=== PATIENT | female | born 1930 | race Caucasian/White ===

== ENCOUNTER 2016-08-16 10:22 | Inpatient (IN) | payer MEDICARE ==
[~2016-08-16] VITALS: Ht 165.1 cm; Wt 67.8 kg
[~2016-08-16 10:22] MED LIST: ATOR10TA23 PO; HYDR25TA6 PO; KETO5DRO79 LEFT EYE; LISI40TA9 PO; OFLO5DRO46 RIGHT EYE; PRD1OP5 LEFT EYE
[2016-08-16 11:31] LABS: ADD SCAN DIFF NO
[2016-08-16 11:36] LABS: BASOPHILS % 0.1 % (0.0-2.0); HEMATOCRIT 39.5 % (37.0-47.0); HEMOGLOBIN 13.3 g/dl (12.0-16.0); LYMPHOCYTES # 1.1 10^3/ul (0.8-2.9); LYMPHOCYTES % 10.4 % (15.0-51.0); MEAN CORPUSCULAR HEMOGLOBIN 30.8 pg (29.0-33.0); MEAN CORPUSCULAR HGB CONC 33.7 g/dl (32.0-37.0); MEAN CORPUSCULAR VOLUME 91.4 fl (82.0-101.0); NEUTROPHIL # 8.5 10^3/ul (1.6-7.5); NEUTROPHILS % 80.3 % (39.0-77.0); PLATELET COUNT 216 10^3/UL (140-415); RED BLOOD COUNT 4.32 10^6/ul (4.20-5.40); RED CELL DISTRIBUTION WIDTH 13.2 % (11.5-14.5); WHITE BLOOD COUNT 10.5 10^3/ul (4.8-10.8)
[2016-08-16 11:55] LABS: ALBUMIN 3.8 g/dl (3.3-4.9)
[2016-08-16 11:56] LABS: CHLORIDE 104 mmol/L (97-110); SODIUM 144 mmol/L (135-144)
[2016-08-16 11:58] LABS: ALBUMIN/GLOBULIN RATIO 1.18; AMYLASE 48 U/L (11-123); ANION GAP 17 (8-16); BILIRUBIN,INDIRECT 0.5 mg/dl (0-1.1); BILIRUBIN,TOTAL 0.5 mg/dl (0.2-1.3); CARBON DIOXIDE 27 mmol/L (21-31); CREATININE 0.74 mg/dl (0.44-1.00)
[2016-08-16 11:59] LABS: ALANINE AMINOTRANSFERASE 80 IU/L (13-69); ALKALINE PHOSPHATASE 91 IU/L (42-121); ASPARTATE AMINO TRANSFERASE 214 IU/L (15-46); BLOOD UREA NITROGEN 39 mg/dl (7-20); CALCIUM 9.8 mg/dl (8.4-10.2); GLUCOSE 88 mg/dl (70-220)
--- NOTE | 2016-08-16 12:06 | RADRPT ---
PROCEDURE: XR Pelvis CLINICAL INDICATION: Way, syncope, fall TECHNIQUE: An AP radiograph was submitted. COMPARISON: 02/07/2016 FINDINGS: Osseous structures: There is a small corticated ossification at the lateral row of the left acetabul um, unchanged since the previous which possibly is a sequelae of old trauma. The osseous elements o therwise appear intact. Moderate osteoarthritic changes seen at the lumbosacral junction.. Joint spaces: Mild degenerative changes seen about each hip joint with no distension of either joint capsule. the sacroiliac joints appear unremarkable without significant erosions or sclerosis. Soft tissues: appear unremarkable. IMPRESSION: 1. No change to the corticated ossification seen lateral to the roof of the left acetabulum which m ay be a sequelae of old trauma. No acute fractures evident. 2. Moderate osteoarthritic change seen about the lumbosacral junction. 3. Osteoporosis. Physician Bradley Date Time Electronically viewed and signed by Physician Bradley on 08/16/2016 12:06 /
--- NOTE | 2016-08-16 12:08 | RADRPT ---
PROCEDURE: XR Left Hip CLINICAL INDICATION: Fall TECHNIQUE: AP and frog-leg views were submitted. COMPARISON: Previous pelvis done 80 04/10/2016 FINDINGS: Osseous structures: A corticated ossification is again seen at the lateral roof of the left acetabul um possibly a sequelae of old trauma. The osseous elements otherwise appear rarefied but intact. Joint spaces: Mild degenerative changes seen about the left hip with no distension of the joint caps ule. The visualized left sacroiliac joint appears unremarkable. Soft tissues: appear unremarkable. IMPRESSION: 1. Corticated ossification seen at the lateral left acetabular roof, possibly a sequelae of old tra amanda and unchanged since the previous pelvis study of 02/07/2016. No acute fracture is identified. 2. Mild degenerative change seen about the left hip. Physician Bradley Date Time Electronically viewed and signed by Juhi Pruitt Physician on 08/16/2016 12:08 /
[2016-08-16 12:10] LABS: TROPONIN-I < 0.010 ng/ml (0.00-0.12)
--- NOTE | 2016-08-16 12:10 | RADRPT ---
PROCEDURE: CT Head without contrast. CLINICAL INDICATION: Possible sepsis. Headaches TECHNIQUE: The study was performed utilizing a GE 64-slice multidetector CT scanner. Direct spiral axial CT images of the brain were obtained from the vertex to the skull base without contrast. Arcelia nal and sagittal reformatted images are provided. The CTDI vol is 36.21 mGy and the DLP is 554.95 mG y-cm. The images were reviewed on a PACS workstation. COMPARISON: No prior studies are available for comparison. FINDINGS: Mild to moderate diffuse atrophy is seen with a compensatory ventricular enlargement. Mild to moder ate white matter disease in the periventricular and deep white matter is seen. The cantu-white matte r differentiation is maintained. No intra or extra-axial fluid collection or mass effect or shift i n the midline structures is seen. The visualized paranasal sinuses, mastoid air cells, orbits, and calvarium are unremarkable. Vascular calcifications are seen. IMPRESSION: 1. No acute intracranial pathology. 2. Mild to moderate diffuse volume loss and mild to moderate chronic microvascular ischemic changes . RPTAT: HPNM Physician Hermelinda Date Time Electronically viewed and signed by Physician Hermelinda on 08/16/2016 12:10 /
[2016-08-16] MEDS ORDERED: ONDANSETRON 4 MG INJ IV STA (13:11)
[2016-08-16] MEDS ORDERED: SOD CHLORIDE 0.9% 1,000 ML IV STA ×2 (13:11→14:12)
[2016-08-16] MEDS ORDERED: morphine 2 MG INJ IV STA (13:11)
[2016-08-16 13:27] LABS: ADD UMIC YES; URINE BILIRUBIN (Dip) 1+ (NEGATIVE); URINE BLOOD (Dip) 2+ (NEGATIVE); URINE COLOR YELLOW (YELLOW); URINE GLUCOSE (Dip) NEGATIVE (NEGATIVE); URINE KETONES (Dip) 15 (NEGATIVE); URINE LEUKOCYTE ESTERASE (Dip) NEGATIVE (NEGATIVE); URINE NITRITE (Dip) NEGATIVE (NEGATIVE); URINE UROBILINOGEN (Dip) 1.0 E.U./dL (0.1-1.0)
[2016-08-16 13:38] LABS: URINE TOTAL PROTEIN (Dip) TRACE (NEGATIVE)
[2016-08-16 13:39] LABS: ICTOTEST NEGATIVE (NEGATIVE)
[2016-08-16 13:40] LABS: MUCUS,URINE FEW
--- NOTE | 2016-08-16 14:19 | ERA ---
ER Documentation Chief Complaint Date/Time DATE: 08/16/16 TIME: 14:13 Chief Complaint BROUGHT IN VIA EMS DUE TO FALL AT HOME AND WAS ON FLOOR FOR 4 HOURS LL PAIN HPI This is an 86-year-old female that presents to the emergency department brought in by EMS after she was found lying on the floor in the hallway of her apartment complex. The patient lives alone but does have difficulty attending to her activities of daily living. Her son currently lives in [facility] and had phoned her today with no response. Therefore he was concerned and phoned her neighbors, who helps to care for the patient, and indicated that she would had been lying in the hallway where the patient states she believes she fell but is not sure if she lost consciousness. There was concern for possible syncope episode given that the patient did not recall the events of how she ended up on the floor but believes she was there for roughly 4 hours. She is complaining of left hip pain. She states it is difficult for her to ambulate as she normally ambulates with a cane and was unable to get up after she fell. The patient denies any chest pain or pressure. She denies a headache or changes in vision. She denies any shortness of breath at rest or exertion ROS All systems reviewed and are negative except as per history of present illness. Medications Home Meds Reported Medications Lisinopril* (Lisinopril*) 40 Mg Tablet, 40 MG PO DAILY 12/07/11 Discontinued Reported Medications Ketorolac Tromethamine Oph (Ketorolac Tromethamine Oph) 0.4%-5 Ml Opht Drops, 1 DROP LEFT EYE DAILY, EA 02/08/16 Prednisolone Acetate* (Pred Forte*) 5 Ml Susp, 1 DROP LEFT EYE DAILY, EA 02/08/16 Ofloxacin* (Ocuflox*) 0.3%-5 Ml Ophth Drops, 1 DROP RIGHT EYE QID, BOTTLE 02/08/16 Atorvastatin (Lipitor) 10 Mg Tablet, 10 MG PO DAILY 12/07/11 Hydrochlorothiazide (Hydrochlorothiazide) 25 Mg Tablet, 20 MG PO DAILY 12/07/11 Allergies Allergies: Coded Allergies: No Known Allergy (Unverified , 08/16/16) PMhx/Soc Anesthesia Reaction: No Hx Neurological Disorder: No Hx Respiratory Disorders: No Hx Cardiac Disorders: Yes (HTN) Hx Psychiatric Problems: No Hx Alcohol Use: No Hx Substance Use: No Hx Tobacco Use: No Smoking Status: Never smoker Physical Exam Vitals Vital Signs Date Time Temp Pulse Resp B/P Pulse Ox O2 Delivery O2 Flow Rate FiO2 08/16/16 12:35 90 22 107/59 100 Room Air 08/16/16 10:53 98.2 70 18 132/82 98 Physical Exam Constitutional:Well-developed. Well-nourished. HEENT:Normocephalic. Atraumatic.Pupils were equal round reactive to light. Very dry mucous membranes.No tonsillar exudates. No nasal septal hematoma. No hemotympanum. Neck: No nuchal rigidity. No lymphadenopathy. No posterior cervical spine tenderness or step-offs. Respiratory: Not using accessory muscles of respiration.Lungs were clear to auscultation bilaterally. No rhonchi. No rales. No wheezing. Cardiovascular: Regular rate regular rhythm.No murmurs. No rubs were appreciated.S1, S2 normal. Distal pulses are palpable 2+ bilaterally. GI: Abdomen was soft. Nontender. Non Distended. No pulsatile abdominal masses or bruits. No rebound. No guarding. Bowel sounds were present and normal. Muscle skeletal: Full range of motion of both the upper extremities bilaterally. Muscular strength 3 out of 5 in the left lower extremity and 4 out of 5 in the right lower extremity. Lower extremities are of equal length and symmetrical with no internal/external rotation Skin: No petechia, no purpura. No lesions on the palms or the soles of the feet. No maculopapular rash. NEURO: Patient was alert, awake, orientated to person place but not to time. She answered all questions appropriately. Patient was unable to ambulate without assistance. No facial droop. No slurred speech. Result Diagram: 08/16/16 1120 08/16/16 1120 Results 24 hrs Laboratory Tests Test 08/16/16 11:20 08/16/16 13:10 Alanine Aminotransferase (ALT/SGPT) 80IU/L Albumin 3.8g/dl Albumin/Globulin Ratio 1.18 Alkaline Phosphatase 91IU/L Amylase Level 48U/L Anion Gap 17 Aspartate Amino Transf (AST/SGOT) 214IU/L Basophils # 0.010^3/ul Basophils % 0.1% Blood Urea Nitrogen 39mg/dl Calcium Level 9.8mg/dl Carbon Dioxide Level 27mmol/L Chloride Level 104mmol/L Creatinine 0.74mg/dl Direct Bilirubin 0.00mg/dl Eosinophils # 0.010^3/ul Eosinophils % 0.0% Globulin 3.20g/dl Glucose Level 88mg/dl Hematocrit 39.5% Hemoglobin 13.3g/dl Indirect Bilirubin 0.5mg/dl Lactic Acid Level 1.3mmol/L Lipase 76U/L Lymphocytes # 1.110^3/ul Lymphocytes % 10.4% Mean Corpuscular Hemoglobin 30.8pg Mean Corpuscular Hemoglobin Concent 33.7g/dl Mean Corpuscular Volume 91.4fl Mean Platelet Volume 10.0fl Monocytes # 1.010^3/ul Monocytes % 9.0% Neutrophils # 8.510^3/ul Neutrophils % 80.3% Nucleated Red Blood Cells # 0.010^3/ul Nucleated Red Blood Cells % 0.0/100WBC Platelet Count 97120^3/UL Potassium Level 4.0mmol/L Red Blood Count 4.3210^6/ul Red Cell Distribution Width 13.2% Sodium Level 144mmol/L Total Bilirubin 0.5mg/dl Total Protein 7.0g/dl Troponin I < 0.010ng/ml White Blood Count 10.510^3/ul Urine Bilirubin 1+ Urine Clarity CLEAR Urine Color YELLOW Urine Glucose NEGATIVE% Urine Hemoglobin 2+ Urine Hyaline Casts RARE Urine Ictotest NEGATIVE Urine Ketones 15 Urine Leukocyte Esterase NEGATIVE Urine Microscopic RBC 2-5/HPF Urine Microscopic WBC 2-5/HPF Urine Mucus FEW Urine Nitrite NEGATIVE Urine Specific [place] >=1.030 Urine Total Protein TRACE Urine Urobilinogen 1.0 E.U./dL Urine pH 6.0 Current Medications Medications (Trade) Dose Ordered Sig/Noé Route PRN Reason Start Time Stop Time Status Last Admin Dose Admin Sodium Chloride (NS) 1,000 ml @ 1,000 mls/hr Q1H STAT IV 08/16/16 13:11 08/16/16 14:10 DC 08/16/16 13:44 Morphine Sulfate (morphine) 2 mg ONCE STAT IV 08/16/16 13:11 08/16/16 13:12 DC Ondansetron HCl (Zofran Inj) 4 mg ONCE STAT IV 08/16/16 13:11 08/16/16 13:12 DC Procedures/MDM The patient presented to the emergency department with a possible syncope episode. The differential diagnosis of syncope is vast but my workup considered common benign disorders to life-threatening processes. Therefore my differential diagnosis included but was not limited to reflex-mediated syncope such as vasovagal or carotid sinus syncope from coughing, sneezing, micturition , or GI stimulation (eg, defecation). Other etiologies in my workup included orthostatic hypotension which could cause syncope from an abrupt drop in venous return to heart from volume depletion. An EKG and cardiac enzymes were obtained to rule out cardiac arrhythmias or ischemia. Cardiopulmonary disease such as valvular disease, hypertrophic cardiomyopathy, pericardial tamponade, or pulmonary embolism were considered as a factor causing the patients syncope episode. The patient had no difference in blood pressure in both arms that could suggest aortic dissection or subclavian steal syndrome. Rectal exam was negative for fecal occult blood that could suggest GI bleeding. Ancillary laboratory work was obtained to evaluate for metabolic or electrolyte abnormalities. The patient had no witnessed brief tonic movements that could suggest postictal confusion. The patient was placed on a director of physical security, continuous pulse oximetry and IV access established by nursing staff. The patient appeared clinically dehydrated and his CPK is currently pending in order to rule out the possibility of rhabdomyolysis. The patient received a total of 2 L bolus of 0.9 normal saline. She was complaining of pain over her left hip and there is no evidence of an acute fracture seen on the radiographic imaging of the pelvis and 2 views of the left hip that was reviewed by myself as well as the radiologist. Therefore she received intravenous morphine and Zofran for analgesia control 12 Lead EKG tracing ordered and reviewed by myself showed: Normal sinus rhythm of 63 bpm and no arrhythmia. NV interval normal. QRS duration normal. No ST segment elevation No ST segment depression. No changes consistent with acute ischemia. The patient will be admitted for observation to undergo IV hydration to the hospitalist Dr. Moreno. Departure Diagnosis: Primary Impression: Fall Additional Impressions: Syncope Dehydration, mild RAFAEL GIBBONSTHIA Aug 16, 2016 14:19
[2016-08-16] MEDS ORDERED: ONDANSETRON 4 MG INJ IV PRN ×2 (14:30→18:00)
[2016-08-16] MEDS ORDERED: ACETAMINOPHEN 325 MG TAB PO PRN ×2 (14:30→18:00)
[2016-08-16 14:40] LABS: CK-MB 46.5 ng/ml (0.0-2.4)
--- NOTE | 2016-08-16 21:34 | RADRPT ---
PROCEDURE: Right upper quadrant ultrasound. CLINICAL INDICATION: Transaminitis. TECHNIQUE: Multiple real-time longitudinal and transverse images of the right upper quadrant of th e abdomen were acquired utilizing a curved array transducer. Images were reviewed on a high-resoluti on PACS workstation. COMPARISON: None. FINDINGS: The pancreas is obscured by bowel gas. The liver is normal in echogenicity. The liver measures 11.7 cm in length. No hepatic lesion or in trahepatic biliary ductal dilatation is seen. There is normal portal venous and hepatic vein flow. There are multiple stones in the gallbladder neck, measuring up to 1.3 cm. The gallbladder wall is n ot thickened. There is no pericholecystic fluid. The common bile duct measures millimeters in diame ter, not dilated. The right kidney measures 10.7 cm in length. Renal echogenicity is normal. There is no hydronephro sis, urinary calculus, or renal mass. The visualized portions of the aorta and IVC are unremarkable. IMPRESSION: 1. Cholelithiasis without evidence of cholecystitis. 2. No biliary dilatation. 3. Normal sonographic appearance of the liver. 4. Nonvisualization of the pancreas. RPTAT: HTAR .Gurinder Fountain MD, MD Date Time Electronically viewed and signed by .Gurinder Fountain MD, on 08/16/2016 21:34 .R/
[2016-08-16 22:09] VITALS: PULSE 86
[2016-08-16 22:10] VITALS: BP 136/91; RESP 16
[2016-08-16 22:44] VITALS: Ht 165.1 cm; Wt 67.8 kg
[2016-08-16] MEDS: SOD CHLORIDE 0.9% 1,000 ML IV SCH (23:01)
[2016-08-16] MEDS: DOCUSATE SODIUM 100 MG CAP PO SCH (23:01)
[2016-08-16] MEDS: FAMOTIDINE 20 MG TAB PO SCH (23:01)
[2016-08-17] VITALS (12 sets, daily range): BP systolic 98–129; BP diastolic 47–78; PULSE 51–71; RESP 14–18
[2016-08-17 00:17] LABS: CK-MB 27.9 ng/ml (0.0-2.4)
[2016-08-17 00:20] LABS: TROPONIN-I 0.024 ng/ml (0.00-0.12)
--- NOTE | 2016-08-17 03:08 | HP ---
DATE OF ADMISSION: 08/16/2016 PRESENTING COMPLAINT: The patient was found on the floor at home. HISTORY OF PRESENTING COMPLAINT: Ms. Rima Broussard is an 85-year-old female who was brought in by ambulance after she was found on the floor by EMS in her own home. It is unknown how long she was on the floor but the patient reports that she was on the floor for at least 4 hours prior to being b rought in. It is, however, difficult to get a history from the patient because her speech is quite confused. For instance, the patient reports her son should be arriving from [place] today and will b e picking her up from the hospital; however, upon speaking with the son, there were no plans for him to arrive from [place], and there were no plans for him to machine operator picker the patient from the hospital and as such, the consensus surrounding her being on the floor is unclear, but apparently, she has neigh bors who check on her from [id number] and they had checked on her and found her on the floor and c alled the ambulance to pick her up. The patient tells us that she fell from her bed, but she was no t close to her bed, per report, at the time she was found. At this time, she denies any complaints. She is actually requesting to be discharged back to her own home. She is mildly shaky, but she st ates that happens when she is cold and in an unfamiliar environment. She denies shortness of breath , denies nausea, denies vomiting. When we spoke with her son on the phone, he reported a bout of fo od poisoning about a week ago; however, the patient does not recall this. REVIEW OF SYSTEMS: All other systems in a 12-point review of systems ____ review and any pertinent findings are located above. PAST MEDICAL HISTORY: Positive only for high blood pressure. PAST SURGICAL HISTORY: The patient denies. ALLERGIES: SHE HAS NO KNOWN DRUG ALLERGIES. SOCIAL HISTORY: She lives alone. Never smoked. Denies alcohol or illicit drug use. FAMILY HISTORY: Noncontributory. HOME MEDICATION: Lisinopril 40 mg p.o. daily only. PHYSICAL EXAMINATION: VITAL SIGNS: Temperature 98.2, pulse 90, respirations 22, blood pressure 107/59, saturations are 10 0%. On room air. GENERAL: Elderly female, frail. Alert and oriented to time, place, and person; however, again, spe ech is confused. HEENT: Her head was normocephalic without evidence of ____. Mucous membranes were quite dry. CHEST: ____ reduced breath sounds bilaterally. CARDIOVASCULAR: Heart sounds are S1 and 2 without added sounds or murmurs. ABDOMEN: Soft, nontend er, nondistended and she had normoactive bowel sounds. EXTREMITIES: There was a visible tremor that was worse on the right side, but she had no lower extr emity edema. There was bruising on her right hip, but an x-ray did not show any acute fractures. SKIN: Other than that, her skin had no other significant finding. PSYCH: She was quite anxious to return home. Denies suicidal ideation r homicidal ideation. NEUROLOGIC: She had no gross focal deficits, but her mental status did show confusion and ____ kavya ntia, but there were no other gross findings. LABORATORY VALUES: She had a very mild leukocytosis, but her hemoglobin, hematocrit, and platelet c ount were all normal. Her BUN was elevated, consistent with dehydration, but the rest of the basic metabolic profile was unremarkable. Liver enzymes were mildly elevated and her albumin level was no rmal. Her AST was more than double her ALT, but lipase level was normal, lactic acid was normal, an d her first troponin was negative. The ____ levels were also high normal. Urinalysis had 2+ hemogl obin, rare hyaline casts, trace urobilinogen, ____ white blood cells. Her leukocyte esterase was ne gative. IMAGING STUDIES: She had an EKG that showed normal sinus rhythm with a rate of 63 and a chest x-ray that did not show any acute cardiopulmonary abnormality. ASSESSMET: An 86-year-old female who resides alone who was found on the floor alert, unknown period of time wit h the followin. Status post fall, for which the ____ unclear. 2. Dehydration. 3. Dementia. 4. Rule out cerebrovascular accident. ____. PLAN: ____ perform a stroke workup. In view of her confusion, this could be secondary to dehydrati on, or if this is a chronic condition, then the patient might not be safe to ____. She will be asse ssed for ____. We will gently hydrate her, ____ 2D echo, rule out acute coronary syndrome, and furt her interventions will depend on our findings and ____. She will need to be evaluated by the older adult social work specialist and ____ physical therapist. Again, she will be also receiving an MRI of the brain. Overal l evaluation time ____ 45 minutes. For prophylaxis, she will be placed on SCDs as well as famotidin e therapy. For clarification and further information, please review the patient's chart and my orde rs. Dictated By: ZULEYMA CARREON MD BA/NTS Conf#: [id number] DID#: [id number]
[2016-08-17] MEDS: SOD CHLORIDE 0.9% 1,000 ML IV SCH ×3 (03:21→19:00)
[2016-08-17 06:06] LABS: ADD SCAN DIFF NO
[2016-08-17 06:10] LABS: BASOPHILS % 0.1 % (0.0-2.0); EOSINOPHILS % 0.2 % (0.0-7.0); HEMATOCRIT 32.1 % (37.0-47.0); HEMOGLOBIN 10.5 g/dl (12.0-16.0); LYMPHOCYTES # 1.8 10^3/ul (0.8-2.9); LYMPHOCYTES % 20.2 % (15.0-51.0); MEAN CORPUSCULAR HEMOGLOBIN 30.5 pg (29.0-33.0); MEAN CORPUSCULAR HGB CONC 32.7 g/dl (32.0-37.0); MEAN CORPUSCULAR VOLUME 93.3 fl (82.0-101.0); MEAN PLATELET VOLUME 10.4 fl (7.4-10.4); MONOCYTE # 0.9 10^3/ul (0.3-0.9); MONOCYTES % 10.1 % (0.0-11.0); NEUTROPHIL # 6.2 10^3/ul (1.6-7.5); NEUTROPHILS % 69.2 % (39.0-77.0); PLATELET COUNT 168 10^3/UL (140-415); RED BLOOD COUNT 3.44 10^6/ul (4.20-5.40); RED CELL DISTRIBUTION WIDTH 13.4 % (11.5-14.5)
[2016-08-17 06:18] LABS: POTASSIUM 3.5 mmol/L (3.5-5.1)
[2016-08-17 06:21] LABS: CALCIUM 8.5 mg/dl (8.4-10.2); CREATININE 0.71 mg/dl (0.44-1.00)
[2016-08-17 06:22] LABS: MAGNESIUM 2.2 mg/dl (1.7-2.5)
[2016-08-17 06:52] LABS: THYROID STIMULATING HORMONE 1.82 MIU/L (0.465-4.680)
[2016-08-17] MEDS ORDERED: DONEPEZIL 5 MG TAB PO SCH (09:00)
[2016-08-17] MEDS: DOCUSATE SODIUM 100 MG CAP PO SCH ×2 (09:19→20:00)
[2016-08-17] MEDS: FAMOTIDINE 20 MG TAB PO SCH (09:19)
[2016-08-17 09:31] LABS: CREATINE KINASE 2091 IU/L (23-200)
[2016-08-17 09:37] LABS: TROPONIN-I < 0.012 ng/ml (0.00-0.12)
[2016-08-17 10:44] LABS: ALBUMIN 2.4 g/dl (3.3-4.9)
[2016-08-17 10:47] LABS: BILIRUBIN,INDIRECT 0.2 mg/dl (0-1.1); BILIRUBIN,TOTAL 0.2 mg/dl (0.2-1.3); TOTAL PROTEIN 4.9 g/dl (6.1-8.1)
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
[2016-08-17] MEDS: LACTOBACILLUS CHEW TAB PO SCH ×2 (11:42→20:00)
[2016-08-17] MEDS: DONEPEZIL 10 MG TAB PO SCH (11:42)
[2016-08-17] MEDS ORDERED: POTASSIUM PHOSPHATE 15 MEQ in SOD CHLORIDE 0.9% 250 ML IVPB ONE (13:00)
[2016-08-17] MEDS: PIPER-TAZO 3.375 GM IV (PMX) 100 ML IVPB SCH ×2 (14:44→20:01)
[2016-08-17] MEDS: ARTIFICIAL TEARS 15 ML OPH RIGHT EYE SCH ×2 (16:52→20:00)
--- NOTE | 2016-08-17 17:59 | RADRPT ---
PROCEDURE: MR Brain without contrast. CLINICAL INDICATION: CVA TECHNIQUE: An MRI of the brain was performed on a 1.5 kadie scanner utilizing the following sequen latosha: Sagittal T1 weighted, axial T2 weighted, axial FLAIR, coronal GRE, and axial diffusion weighted with ADC mapping. COMPARISON: CT brain 08/16/2016 FINDINGS: No evidence of restricted diffusion to suggest acute or early subacute ischemic infarction. There i s no evidence of intracranial hemorrhage, mass effect, or midline shift. No extra-axial fluid collec tions are seen. No hypointense signal abnormalities are seen on the GRE images to suggest the presence of blood degr adation products. A patchy and confluent periventricular and subcortical white matter T2 signal hyperintensity foci mo st compatible with sequelae of chronic microvascular ischemic injury. Prominence of the ventricles and subarachnoid spaces most compatible with moderate global central cerebral volume loss. Incident al note is made of partially empty sella. Left lens surgery. The posterior fossa contents, brainstem, seventh - eighth cranial nerve complexes, pituitary axis, o rbits, paranasal sinuses, and mastoid air cells are unremarkable. Normal flow voids are visible in the proximal intracranial arteries and dural sinuses, indicating pa tency. IMPRESSION: 1. No early subacute ischemic infarction or intracranial hemorrhage. 2. Mild chronic microvascular ischemic changes in the deep white matter. 3. Moderate central cerebral volume loss. RPTAT:AAJJ Physician Rosibel Date Time Electronically viewed and signed by Physician Rosibel on 08/17/2016 17:59 LIOR/
[2016-08-18] VITALS (13 sets, daily range): BP systolic 107–149; BP diastolic 51–79; PULSE 54–79; RESP 16–18
[2016-08-18] MEDS: SOD CHLORIDE 0.9% 1,000 ML IV SCH ×2 (05:03→21:14)
[2016-08-18] MEDS: PIPER-TAZO 3.375 GM IV (PMX) 100 ML IVPB SCH ×3 (05:03→22:49)
[2016-08-18 06:07] LABS: ADD SCAN DIFF NO
[2016-08-18 06:15] LABS: EOSINOPHILS # 0.1 10^3/ul (0.0-0.5); EOSINOPHILS % 0.6 % (0.0-7.0); HEMATOCRIT 30.1 % (37.0-47.0); LYMPHOCYTES # 1.7 10^3/ul (0.8-2.9); LYMPHOCYTES % 21.6 % (15.0-51.0); MEAN CORPUSCULAR HEMOGLOBIN 30.9 pg (29.0-33.0); MEAN CORPUSCULAR HGB CONC 33.2 g/dl (32.0-37.0); MEAN CORPUSCULAR VOLUME 92.9 fl (82.0-101.0); MEAN PLATELET VOLUME 10.4 fl (7.4-10.4); MONOCYTES % 12.9 % (0.0-11.0); NEUTROPHIL # 5.1 10^3/ul (1.6-7.5); NEUTROPHILS % 64.5 % (39.0-77.0); PLATELET COUNT 171 10^3/UL (140-415); RED BLOOD COUNT 3.24 10^6/ul (4.20-5.40); RED CELL DISTRIBUTION WIDTH 13.2 % (11.5-14.5); WHITE BLOOD COUNT 7.8 10^3/ul (4.8-10.8)
[2016-08-18 06:39] LABS: CREATININE 0.66 mg/dl (0.44-1.00)
[2016-08-18 06:40] LABS: CALCIUM 7.9 mg/dl (8.4-10.2)
[2016-08-18 06:41] LABS: PHOSPHORUS 1.7 mg/dl (2.5-4.9)
[2016-08-18] MEDS: DONEPEZIL 10 MG TAB PO SCH (09:05)
[2016-08-18] MEDS: ARTIFICIAL TEARS 15 ML OPH RIGHT EYE SCH ×4 (09:06→21:15)
[2016-08-18] MEDS: DOCUSATE SODIUM 100 MG CAP PO SCH ×2 (09:06→21:14)
[2016-08-18] MEDS: FAMOTIDINE 20 MG TAB PO SCH (09:06)
[2016-08-18] MEDS: ENOXAPARIN 30 MG/0.3 ML SYG SC SCH (09:06)
[2016-08-18] MEDS: LACTOBACILLUS CHEW TAB PO SCH ×2 (09:06→21:14)
--- NOTE | 2016-08-18 13:05 | PN ---
Date/Time of Note Date/Time of Note DATE: 08/18/16 TIME: 13:01 Assessment/Plan VTE Prophylaxis VTE Prophylaxis Intervention: SCD's Lines/Catheters IV Catheter Type (from Nrs): Peripheral IV Urinary Cath still in place: Yes Reason Cath still needed: urinary retention Assessment/Plan Chief Complaint/Hosp Course Assessment/Plan: 86-year-old female who resides alone who was found on the floor alert, unknown period of time with the followin. Status post fall: Syncope vs CVA vs Mech fall. Patient seems unsafe to live alone at this time. Patient was unable to stand up on her own and lay there alert for unknown amount of time. - continue IVF, awaiting PT, pain control 2. Severe Rhabdomyolysis - Elevated CKMB likely 2/2 #1 - Continue gentle hydration / monitor renal fxn / trend creatinine kinase levels 3. Dementia - monitor 4. Acute encephalopathy Rule out Acute cerebrovascular accident. 5. Bacteremia (Gr - and + organisms), ? source - Empiric abx / 2D echo for bacteremia with unclear source 6. Old L hip fracture - monitor, PT eval and treatment 7. Recent bout of "Food poisoning" per family 8. Transaminitis: improving PLAN: - SNF needed PROPHYLAXIS: Lovenox / Pepcid Problems: Subjective 24 Hr Interval Summary Free Text/Dictation Pt feels a bit better, still weak. Exam/Review of Systems Vital Signs Vitals Vital Signs Date Time Temp Pulse Resp B/P Pulse Ox O2 Delivery O2 Flow Rate FiO2 08/18/16 12:21 79 08/18/16 12:03 98.9 18 126/76 96 08/16/16 21:09 Room Air Intake and Output 08/17/16 08/17/16 08/18/16 15:00 23:00 07:00 Intake Total 1933 ml 1160 ml Output Total 550 ml 400 ml Balance 1383 ml 760 ml Exam GEN: a bit more alert, NAD, eating food HEENT: R sided ptosis (chronic) with mild crusting. Her head was normocephalic without evidence of trauma Mucous membranes were less dry. CHEST: slightly reduced breath sounds bilaterally. CARDIOVASCULAR: Heart sounds are S1 and 2 without added sounds or murmurs. ABDOMEN: Soft, nontender, nondistended and she had normoactive bowel sounds. EXTREMITIES: no lower extremity edema B/L. Bruising on her right hip seen SKIN: Other than that, her skin had no other significant finding. NEUROLOGIC: She had no gross focal deficits, but her mental status did show confusion and dementia, Lethargic and very frail. Results Result Diagram: 08/18/16 0530 08/18/16 0530 Results 24 hrs Laboratory Tests Test 08/18/16 05:30 Anion Gap 11 Basophils # 0.0 Basophils % 0.0 Blood Urea Nitrogen 18 # Calcium Level 7.9 L Carbon Dioxide Level 23 Chloride Level 112 H Creatinine 0.66 Eosinophils # 0.1 Eosinophils % 0.6 Glucose Level 92 Hematocrit 30.1 L Hemoglobin 10.0 L Lymphocytes # 1.7 Lymphocytes % 21.6 Magnesium Level 2.0 Mean Corpuscular Hemoglobin 30.9 Mean Corpuscular Hemoglobin Concent 33.2 Mean Corpuscular Volume 92.9 Mean Platelet Volume 10.4 Monocytes # 1.0 H Monocytes % 12.9 H Neutrophils # 5.1 Neutrophils % 64.5 Nucleated Red Blood Cells # 0.0 Nucleated Red Blood Cells % 0.0 Phosphorus Level 1.7 L Platelet Count 171 Potassium Level 3.0 L Red Blood Count 3.24 L Red Cell Distribution Width 13.2 Sodium Level 143 White Blood Count 7.8 Medications Medications Current Medications Sodium Chloride (NS) 1,000 ml @ 80 mls/hr [id number] IV Last administered on 08/18 05:03; Admin Dose 80 MLS/HR; Start 08/16/16 at 18:00 Famotidine (Pepcid) 20 mg DAILY PO Last administered on 08/18/16 09:06; Admin Dose 20 MG; Start 08/16/16 at 21:00 Ondansetron HCl (Zofran Inj) 4 mg Q6H PRN IV NAUSEA AND/OR VOMITING; Start at 18:00 Docusate Sodium (Colace) 100 mg BID PO Last administered on 08/18/16 09:06; Admin Dose 100 MG; Start 08/16/16 at 21:00 Acetaminophen 650 mg 650 mg Q6H PRN PO PAIN AND OR ELEVATED TEMP; Start at 18:00 Piperacillin Sod/ Tazobactam Sod (Zosyn 3.375gm/ 100 ml (Pmx)) 100 ml @ 200 mls /hr Q8 IVPB Last administered on 08/18/16 05:03; Admin Dose 200 MLS/HR; Start 08/17/16 at 14:00 Lactobacillus Acidoph/Bulgaricus (Floranex) 1 tab BID PO Last administered on 09:06; Admin Dose 1 TAB; Start 08/17/16 at 11:00 Donepezil HCl (Aricept) 5 mg DAILY PO Last administered on 08/18/16 09:05; Admin Dose 5 MG; Start 08/17/16 at 11:30 Eye Lubricant (Artificial Tears Oph) 2 drop QID RIGHT EYE Last administered on 08/18/16 09:06; Admin Dose 2 DROP; Start 08/17/16 at 16:00 Enoxaparin Sodium 30 mg 30 mg DAILY SC Last administered on 08/18/16 09:06; Admin Dose 30 MG; Start 08/18/16 at 09:00 Potassium Phosphate/Sodium Chloride (K Phos (Mm)/NS) 260 ml @ 65 mls/hr ONCE ONCE IVPB ; Start 08/18/16 at 14:30; Stop 08/18/16 at 18:29 BILLIE CLAY Aug 18, 2016 13:05
[2016-08-18] MEDS ORDERED: POTASSIUM PHOSPHATE 30 MM in SOD CHLORIDE 0.9% 250 ML IVPB ONE (14:30)
[2016-08-19] VITALS (12 sets, daily range): BP systolic 96–148; BP diastolic 54–67; PULSE 58–73; RESP 18–20
[2016-08-19] MEDS: PIPER-TAZO 3.375 GM IV (PMX) 100 ML IVPB SCH ×3 (05:51→22:02)
[2016-08-19 06:22] LABS: ADD SCAN DIFF NO
[2016-08-19 06:53] LABS: BASOPHILS % 0.1 % (0.0-2.0); EOSINOPHILS # 0.1 10^3/ul (0.0-0.5); HEMATOCRIT 30.8 % (37.0-47.0); HEMOGLOBIN 10.3 g/dl (12.0-16.0); LYMPHOCYTES % 25.8 % (15.0-51.0); MEAN CORPUSCULAR HEMOGLOBIN 30.8 pg (29.0-33.0); MEAN CORPUSCULAR HGB CONC 33.4 g/dl (32.0-37.0); MEAN CORPUSCULAR VOLUME 92.2 fl (82.0-101.0); MEAN PLATELET VOLUME 10.2 fl (7.4-10.4); MONOCYTE # 0.8 10^3/ul (0.3-0.9); MONOCYTES % 10.2 % (0.0-11.0); NEUTROPHIL # 4.8 10^3/ul (1.6-7.5); NEUTROPHILS % 62.4 % (39.0-77.0); PLATELET COUNT 165 10^3/UL (140-415); RED BLOOD COUNT 3.34 10^6/ul (4.20-5.40); RED CELL DISTRIBUTION WIDTH 13.4 % (11.5-14.5); WHITE BLOOD COUNT 7.7 10^3/ul (4.8-10.8)
[2016-08-19 07:05] LABS: CREATININE 0.66 mg/dl (0.44-1.00)
[2016-08-19 07:06] LABS: CALCIUM 7.9 mg/dl (8.4-10.2)
[2016-08-19 07:07] LABS: PHOSPHORUS 2.5 mg/dl (2.5-4.9)
[2016-08-19] MEDS: SOD CHLORIDE 0.9% 1,000 ML IV SCH (08:30)
[2016-08-19] MEDS: FAMOTIDINE 20 MG TAB PO SCH (08:41)
[2016-08-19] MEDS: DONEPEZIL 10 MG TAB PO SCH (08:41)
[2016-08-19] MEDS: LACTOBACILLUS CHEW TAB PO SCH ×2 (08:41→20:59)
[2016-08-19] MEDS: DOCUSATE SODIUM 100 MG CAP PO SCH ×2 (08:41→20:59)
[2016-08-19] MEDS: ARTIFICIAL TEARS 15 ML OPH RIGHT EYE SCH ×4 (08:45→20:59)
[2016-08-19] MEDS: ENOXAPARIN 30 MG/0.3 ML SYG SC SCH (08:48)
--- NOTE | 2016-08-19 10:27 | PN ---
Date/Time of Note Date/Time of Note DATE: 08/19/16 TIME: 10:26 Assessment/Plan VTE Prophylaxis VTE Prophylaxis Intervention: SCD's Lines/Catheters IV Catheter Type (from Nrs): Peripheral IV Urinary Cath still in place: Yes Reason Cath still needed: urinary retention Assessment/Plan Chief Complaint/Hosp Course Assessment/Plan: 86-year-old female who resides alone who was found on the floor alert, unknown period of time with the followin. Status post fall: Syncope vs CVA vs Mech fall. Patient seems unsafe to live alone at this time. Patient was unable to stand up on her own and lay there alert for unknown amount of time. - continue IVF, PT rec's, pain control 2. Severe Rhabdomyolysis - Elevated CKMB likely / #1 - improving - Continue gentle hydration / monitor renal fxn / trend creatinine kinase levels 3. Dementia - monitor 4. Acute encephalopathy Rule out Acute cerebrovascular accident. 5. Bacteremia (Gr - and + organisms), ? source - Empiric abx / 2D echo for bacteremia with unclear source 6. Old L hip fracture - monitor, PT eval and treatment 7. Recent bout of "Food poisoning" per family 8. Transaminitis: improving PLAN: - SNF needed, pending PROPHYLAXIS: Lovenox / Pepcid Problems: Subjective 24 Hr Interval Summary Free Text/Dictation No acute events overnight Exam/Review of Systems Vital Signs Vitals Vital Signs Date Time Temp Pulse Resp B/P Pulse Ox O2 Delivery O2 Flow Rate FiO2 08/19/16 08:25 58 08/19/16 07:43 98.3 18 129/60 92 08/16/16 21:09 Room Air Intake and Output 08/18/16 08/18/16 08/19/16 15:00 23:00 07:00 Intake Total 1880 ml 1170 ml Output Total 700 ml 750 ml Balance 1180 ml 420 ml Exam GEN: more alert, NAD HEENT: R sided ptosis (chronic) with mild crusting. Her head was normocephalic without evidence of trauma Mucous membranes were less dry. CHEST: slightly reduced breath sounds bilaterally. CARDIOVASCULAR: Heart sounds are S1 and 2 without added sounds or murmurs. ABDOMEN: Soft, nontender, nondistended and she had normoactive bowel sounds. EXTREMITIES: no lower extremity edema B/L. Bruising on her right hip seen SKIN: Other than that, her skin had no other significant finding. NEUROLOGIC: She had no gross focal deficits, but her mental status did show confusion and dementia, frail. Results Result Diagram: 08/19/16 0535 08/19/16 0535 Results 24 hrs Laboratory Tests Test 08/18/16 14:30 08/19/16 05:35 Creatine Kinase 738 #H 299 #H Anion Gap 11 Basophils # 0.0 Basophils % 0.1 Blood Urea Nitrogen 12 Calcium Level 7.9 L Carbon Dioxide Level 24 Chloride Level 112 H Creatinine 0.66 Eosinophils # 0.1 Eosinophils % 1.0 Glucose Level 88 Hematocrit 30.8 L Hemoglobin 10.3 L Lymphocytes # 2.0 Lymphocytes % 25.8 Magnesium Level 2.0 Mean Corpuscular Hemoglobin 30.8 Mean Corpuscular Hemoglobin Concent 33.4 Mean Corpuscular Volume 92.2 Mean Platelet Volume 10.2 Monocytes # 0.8 Monocytes % 10.2 Neutrophils # 4.8 Neutrophils % 62.4 Nucleated Red Blood Cells # 0.0 Nucleated Red Blood Cells % 0.0 Phosphorus Level 2.5 Platelet Count 165 Potassium Level 3.0 L Red Blood Count 3.34 L Red Cell Distribution Width 13.4 Sodium Level 144 White Blood Count 7.7 Medications Medications Current Medications Sodium Chloride (NS) 1,000 ml @ 80 mls/hr [id number] IV Last administered on 08/18 21:14; Admin Dose 80 MLS/HR; Start 08/16/16 at 18:00 Famotidine (Pepcid) 20 mg DAILY PO Last administered on 08/19/16 08:41; Admin Dose 20 MG; Start 08/16/16 at 21:00 Ondansetron HCl (Zofran Inj) 4 mg Q6H PRN IV NAUSEA AND/OR VOMITING; Start at 18:00 Docusate Sodium (Colace) 100 mg BID PO Last administered on 08/19/16 08:41; Admin Dose 100 MG; Start 08/16/16 at 21:00 Acetaminophen 650 mg 650 mg Q6H PRN PO PAIN AND OR ELEVATED TEMP; Start at 18:00 Piperacillin Sod/ Tazobactam Sod (Zosyn 3.375gm/ 100 ml (Pmx)) 100 ml @ 200 mls /hr Q8 IVPB Last administered on 08/19/16 05:51; Admin Dose 200 MLS/HR; Start 08/17/16 at 14:00 Lactobacillus Acidoph/Bulgaricus (Floranex) 1 tab BID PO Last administered on 08:41; Admin Dose 1 TAB; Start 08/17/16 at 11:00 Donepezil HCl (Aricept) 5 mg DAILY PO Last administered on 08/19/16 08:41; Admin Dose 5 MG; Start 08/17/16 at 11:30 Eye Lubricant (Artificial Tears Oph) 2 drop QID RIGHT EYE Last administered on 08/19/16 08:45; Admin Dose 2 DROP; Start 08/17/16 at 16:00 Enoxaparin Sodium 30 mg 30 mg DAILY SC Last administered on 08/19/16 08:48; Admin Dose 30 MG; Start 08/18/16 at 09:00 Potassium Chloride (KCl 40 MEQ/250 ML NS) 250 ml @ 62.5 mls/hr ONCE ONCE IVPB ; Start 08/19/16 at 10:30; Stop 08/19/16 at 14:29 BILLIE CLAY Aug 19, 2016 10:27
[2016-08-19] MEDS ORDERED: POTASSIUM CHLORIDE 250 ML IVPB ONE (10:30)
[2016-08-19] MEDS: SOD CHLORIDE 0.45% 1,000 ML IV SCH (11:41)
--- NOTE | 2016-08-19 13:23 | RADRPT ---
Echocardiogram Report Patient Name: ERLIN DIAZ Gender: Female Date: 1930 Study Date: 18-Aug-2016 Central Office Operator: Ham Ann RDCS Location: [id number] Ref. Physician: ZULEYMA CARREON Quality: Good Procedures: Transthoracic echocardiogram with complete 2D, M-Mode, and doppler examination. Indications: bacteremia. 2D/M Mode Doppler Measurement Value Normal Ranges Measurement Value Normal Ranges LVIDd 2D 3.9 3.5 - 5.6 cm AV Peak Armando 1.4 m/sec LVIDs 2D 2.7 2.1 - 4.1 cm AV Peak PG 7.5 mmHg LVPWd 2D 0.7 0.6 - 1.1 cm LVOT Peak Armando 1.4 m/sec IVSd 2D 1.0 0.6 - 1.1 cm LVOT Peak PG 7.7 mmHg AoR Diam 2D 2.9 2.0 - 3.7 cm MV E Peak Armando 0.9 m/sec EDV 2D 66.8 cm3 MV A Peak Armando 1.0 m/sec ESV 2D 18.8 cm3 MV E/A 1.0 LA Dimen 2D 3.2 2.3 - 4.0 cm MV Decel Time 276 msec MV Decel [place] 3 MV E/A 1.0 TR Peak Armando 2.2 m/sec TR Peak PG 19.5 mmHg RVSP 23.0 mmHg Findings Left Ventricle: Normal left ventricular systolic function. Normal left ventricular cavity size. Normal left ventricular wall thickness. Ejection fraction is visually estimated at 65 %. Tissue Doppler/Mitral Doppler indices are consistent with impaired relaxation (Stage I diastolic dysfunction). Right Ventricle: Normal right ventricular size. Normal right ventricular systolic function. Left Atrium: The left atrium is normal in size. Right Atrium: The right atrium is normal in size. Mitral Valve: Normal appearance and function of the mitral valve with trace physiologic regurgitation. Aortic Valve: No significant aortic stenosis or insufficiency. Aortic cusps appear mildly calcified. Tricuspid Valve: Normal appearance of the tricuspid valve. Estimated peak PA systolic pressure 23 mmHg. There is trace tricuspid regurgitation. Pulmonic Valve: Normal pulmonic valve appearance. Pericardium: Normal pericardium with no significant pericardial effusion. Aorta: Normal aortic root. IVC: Normal size and normal respiratory collapse consistent with normal right atrial pressure. Conclusions 1.Normal left ventricular systolic function. Normal left ventricular cavity size. Normal left ventricular wall thickness. Ejection fraction is visually estimated at 65 %. Tissue Doppler/Mitral Doppler indices are consistent with impaired relaxation (Stage I diastolic dysfunction). 2.Normal appearance and function of the mitral valve with trace physiologic regurgitation. 3.Normal appearance of the tricuspid valve. Estimated peak PA systolic pressure 23 mmHg. There is trace tricuspid regurgitation. Electronically Signed By: Carlos Sheikh 19-Aug-2016 13:22:21 -0800 Patient Name: ERLIN DIAZ Study Date: 18-Aug-2016 [id number]
[2016-08-20] VITALS (13 sets, daily range): BP systolic 113–154; BP diastolic 55–68; PULSE 54–72; RESP 16–20
[2016-08-20] MEDS: SOD CHLORIDE 0.45% 1,000 ML IV SCH ×3 (00:20→13:40)
[2016-08-20 06:09] LABS: ADD SCAN DIFF NO
[2016-08-20 06:12] LABS: BASOPHILS % 0.1 % (0.0-2.0); EOSINOPHILS # 0.1 10^3/ul (0.0-0.5); EOSINOPHILS % 1.7 % (0.0-7.0); HEMATOCRIT 32.2 % (37.0-47.0); HEMOGLOBIN 10.6 g/dl (12.0-16.0); LYMPHOCYTES # 1.7 10^3/ul (0.8-2.9); MEAN CORPUSCULAR HEMOGLOBIN 30.5 pg (29.0-33.0); MEAN CORPUSCULAR HGB CONC 32.9 g/dl (32.0-37.0); MEAN CORPUSCULAR VOLUME 92.8 fl (82.0-101.0); MEAN PLATELET VOLUME 9.9 fl (7.4-10.4); MONOCYTE # 0.9 10^3/ul (0.3-0.9); MONOCYTES % 10.5 % (0.0-11.0); NEUTROPHIL # 5.3 10^3/ul (1.6-7.5); NEUTROPHILS % 65.8 % (39.0-77.0); PLATELET COUNT 186 10^3/UL (140-415); RED BLOOD COUNT 3.47 10^6/ul (4.20-5.40); RED CELL DISTRIBUTION WIDTH 13.3 % (11.5-14.5); WHITE BLOOD COUNT 8.1 10^3/ul (4.8-10.8)
[2016-08-20] MEDS: PIPER-TAZO 3.375 GM IV (PMX) 100 ML IVPB SCH ×3 (06:25→21:51)
[2016-08-20 06:57] LABS: POTASSIUM 3.5 mmol/L (3.5-5.1)
[2016-08-20 06:59] LABS: CREATININE 0.62 mg/dl (0.44-1.00)
[2016-08-20 07:00] LABS: CALCIUM 8.1 mg/dl (8.4-10.2); PHOSPHORUS 2.4 mg/dl (2.5-4.9)
[2016-08-20 07:01] LABS: MAGNESIUM 1.9 mg/dl (1.7-2.5)
[2016-08-20] MEDS: ARTIFICIAL TEARS 15 ML OPH RIGHT EYE SCH ×4 (08:29→21:50)
[2016-08-20] MEDS: DONEPEZIL 10 MG TAB PO SCH (08:29)
[2016-08-20] MEDS: LACTOBACILLUS CHEW TAB PO SCH ×2 (08:29→21:50)
[2016-08-20] MEDS: DOCUSATE SODIUM 100 MG CAP PO SCH ×2 (08:29→21:50)
[2016-08-20] MEDS: FAMOTIDINE 20 MG TAB PO SCH (08:29)
[2016-08-20] MEDS: ENOXAPARIN 30 MG/0.3 ML SYG SC SCH (08:34)
--- NOTE | 2016-08-20 12:17 | PN ---
Date/Time of Note Date/Time of Note DATE: 08/20/16 TIME: 12:14 Assessment/Plan VTE Prophylaxis VTE Prophylaxis Intervention: SCD's Lines/Catheters IV Catheter Type (from Nrsg): Peripheral IV Urinary Cath still in place: Yes Reason Cath still needed: urinary retention Assessment/Plan Chief Complaint/Hosp Course Assessment/Plan: 86-year-old female who resides alone who was found on the floor alert, unknown period of time with the followin. Status post fall: Syncope vs CVA vs Mech fall. Patient seems unsafe to live alone at this time. Patient was unable to stand up on her own and lay there alert for unknown amount of time. - continue IVF, PT rec's, pain control 2. Severe Rhabdomyolysis - Elevated CKMB likely 2/2 #1 - improving - Continue gentle hydration / monitor renal fxn 3. Dementia - monitor 4. Acute encephalopathy Rule out Acute cerebrovascular accident. 5. Bacteremia (Gr - and + organisms), ? source - Empiric abx / 2D echo for bacteremia with unclear source 6. Old L hip fracture - monitor, PT eval and treatment 7. Recent bout of "Food poisoning" per family 8. Transaminitis: improving PLAN: - SNF needed, pending - hopefully to SNF in 24 hrs. PROPHYLAXIS: Lovenox / Pepcid Problems: Subjective 24 Hr Interval Summary Free Text/Dictation No acute events overnight, denies pain. Exam/Review of Systems Vital Signs Vitals Vital Signs Date Time Temp Pulse Resp B/P Pulse Ox O2 Delivery O2 Flow Rate FiO2 08/20/16 12:02 59 08/20/16 11:13 98.5 18 140/55 97 08/16/16 21:09 Room Air Intake and Output 08/19/16 08/19/16 08/20/16 15:00 23:00 07:00 Intake Total 580 ml 850 ml 1250 ml Output Total 500 ml 650 ml Balance 580 ml 350 ml 600 ml Exam GEN: more alert, NAD HEENT: R sided ptosis (chronic) with mild crusting. Her head was normocephalic without evidence of trauma Mucous membranes were less dry. CHEST: slightly reduced breath sounds bilaterally. CARDIOVASCULAR: Heart sounds are S1 and 2 without added sounds or murmurs. ABDOMEN: Soft, nontender, nondistended and she had normoactive bowel sounds. EXTREMITIES: no lower extremity edema B/L. Bruising on her right hip seen SKIN: Other than that, her skin had no other significant finding. NEUROLOGIC: She had no gross focal deficits, but her mental status did show confusion and dementia, frail. Results Result Diagram: 08/20/16 0530 08/20/16 0530 Results 24 hrs Laboratory Tests Test 08/20/16 05:30 Anion Gap 12 Basophils # 0.0 Basophils % 0.1 Blood Urea Nitrogen 11 Calcium Level 8.1 L Carbon Dioxide Level 24 Chloride Level 108 Creatine Kinase 138 # Creatinine 0.62 Eosinophils # 0.1 Eosinophils % 1.7 Glucose Level 89 Hematocrit 32.2 L Hemoglobin 10.6 L Lymphocytes # 1.7 Lymphocytes % 21.0 Magnesium Level 1.9 Mean Corpuscular Hemoglobin 30.5 Mean Corpuscular Hemoglobin Concent 32.9 Mean Corpuscular Volume 92.8 Mean Platelet Volume 9.9 Monocytes # 0.9 Monocytes % 10.5 Neutrophils # 5.3 Neutrophils % 65.8 Nucleated Red Blood Cells # 0.0 Nucleated Red Blood Cells % 0.0 Phosphorus Level 2.4 L Platelet Count 186 Potassium Level 3.5 Red Blood Count 3.47 L Red Cell Distribution Width 13.3 Sodium Level 140 White Blood Count 8.1 Medications Medications Current Medications Famotidine (Pepcid) 20 mg DAILY PO Last administered on 08/20/16 08:29; Admin Dose 20 MG; Start 08/16/16 at 21:00 Ondansetron HCl (Zofran Inj) 4 mg Q6H PRN IV NAUSEA AND/OR VOMITING; Start at 18:00 Docusate Sodium (Colace) 100 mg BID PO Last administered on 08/20/16 08:29; Admin Dose 100 MG; Start 08/16/16 at 21:00 Acetaminophen 650 mg 650 mg Q6H PRN PO PAIN AND OR ELEVATED TEMP; Start at 18:00 Piperacillin Sod/ Tazobactam Sod (Zosyn 3.375gm/ 100 ml (Pmx)) 100 ml @ 200 mls /hr Q8 IVPB Last administered on 08/20/16 06:25; Admin Dose 200 MLS/HR; Start 08/17/16 at 14:00 Lactobacillus Acidoph/Bulgaricus (Floranex) 1 tab BID PO Last administered on 08:29; Admin Dose 1 TAB; Start 08/17/16 at 11:00 Donepezil HCl (Aricept) 5 mg DAILY PO Last administered on 08/20/16 08:29; Admin Dose 5 MG; Start 08/17/16 at 11:30 Eye Lubricant (Artificial Tears Oph) 2 drop QID RIGHT EYE Last administered on 08/20/16 08:29; Admin Dose 2 DROP; Start 08/17/16 at 16:00 Enoxaparin Sodium 30 mg 30 mg DAILY SC Last administered on 08/20/16 08:34; Admin Dose 30 MG; Start 08/18/16 at 09:00 Sodium Chloride 1,000 ml @ 75 mls/hr [id number] IV Last administered on 08/20/16 02:47; Admin Dose 75 MLS/HR; Start 08/19/16 at 11:00 Potassium Phosphate/Sodium Chloride (K Phos (Meq)/NS) 254.5455 ml @ 63.636 m... ONCE ONCE IVPB ; Start 08/20/16 at 12:30; Stop 08/20/16 at 16:29; Status BILLIE MONZON Aug 20, 2016 12:17
[2016-08-20] MEDS ORDERED: POTASSIUM PHOSPHATE 20 MEQ in SOD CHLORIDE 0.9% 250 ML IVPB SCH (14:00)
[2016-08-21] VITALS (7 sets, daily range): BP systolic 130–160; BP diastolic 70–76; PULSE 62–71; RESP 16–20
[2016-08-21] MEDS: SOD CHLORIDE 0.45% 1,000 ML IV SCH (03:00)
[2016-08-21] MEDS: PIPER-TAZO 3.375 GM IV (PMX) 100 ML IVPB SCH (05:27)
[2016-08-21 06:57] LABS: ADD SCAN DIFF NO
[2016-08-21 07:01] LABS: BASOPHILS % 0.1 % (0.0-2.0); EOSINOPHILS # 0.2 10^3/ul (0.0-0.5); EOSINOPHILS % 2.6 % (0.0-7.0); HEMATOCRIT 30.9 % (37.0-47.0); HEMOGLOBIN 10.3 g/dl (12.0-16.0); LYMPHOCYTES # 1.8 10^3/ul (0.8-2.9); MEAN CORPUSCULAR HEMOGLOBIN 30.6 pg (29.0-33.0); MEAN CORPUSCULAR HGB CONC 33.3 g/dl (32.0-37.0); MEAN CORPUSCULAR VOLUME 91.7 fl (82.0-101.0); MONOCYTE # 0.9 10^3/ul (0.3-0.9); MONOCYTES % 11.2 % (0.0-11.0); NEUTROPHIL # 5.1 10^3/ul (1.6-7.5); NEUTROPHILS % 63.2 % (39.0-77.0); PLATELET COUNT 207 10^3/UL (140-415); RED BLOOD COUNT 3.37 10^6/ul (4.20-5.40); RED CELL DISTRIBUTION WIDTH 13.3 % (11.5-14.5)
[2016-08-21 07:05] LABS: POTASSIUM 3.2 mmol/L (3.5-5.1)
[2016-08-21 07:08] LABS: CALCIUM 8.1 mg/dl (8.4-10.2); CREATININE 0.67 mg/dl (0.44-1.00)
[2016-08-21] MEDS: LACTOBACILLUS CHEW TAB PO SCH (09:32)
[2016-08-21] MEDS: DOCUSATE SODIUM 100 MG CAP PO SCH (09:32)
[2016-08-21] MEDS: FAMOTIDINE 20 MG TAB PO SCH (09:32)
[2016-08-21] MEDS: DONEPEZIL 10 MG TAB PO SCH (09:33)
[2016-08-21] MEDS: ARTIFICIAL TEARS 15 ML OPH RIGHT EYE SCH (09:34)
[2016-08-21] MEDS: ENOXAPARIN 30 MG/0.3 ML SYG SC SCH (09:46)
[2016-08-21] MEDS ORDERED: POTASSIUM CHLORIDE (SR) 20 MEQ TAB PO STA (10:19)
--- NOTE | 2016-08-21 10:21 | PDOCDIS ---
Discharge Instructions CONDITION Patient Condition: Stable HOME CARE INSTRUCTIONS: Special Diet: BILLIE Jorge Aug 21, 2016 10:21
--- NOTE | 2016-08-21 10:53 | DS ---
DATE OF ADMISSION: 08/18/2016 DATE OF DISCHARGE: 08/21/2016 HOSPITAL COURSE: The patient came in found on the floor at home. She was admitted and there were f indings of severe rhabdomyolysis. She had elevated CK levels and started on aggressive IV fluid hyd ration. She was ruled out for acute stroke. Her MRI of the brain showed no early subacute ischemic infarction or intracranial hemorrhages as well. She had some low electrolytes that were repleted a s well. Over the course of her hospital stay, her symptoms slowly improved and her CK levels trende d down. Her weakness symptoms were resolving. She was placed on antibiotics for positive blood cul tures, the first one grew Pantoea organism and the second one alpha hemolytic strep. She had no leuk ocytosis, no fevers. She was placed on antibiotics. She was able to work with physical therapy and tolerate a p.o. diet. She lives at home. She is still having some weakness but overall, her vital s are stable. She is tolerating diet. She will be discharged to senior care facility today in improved condition. DISCHARGE MEDICATIONS: She will be sent with the following medications: 1. Tylenol 650 q.6h. p.r.n. 2. Artificial tears 4 times a day. 3. Colace 100 mg b.i.d. 4. Aricept 5 mg daily. 5. Lovenox 30 mg subq daily. 6. Pepcid 20 mg daily. 7. ____1 tab b.i.d. 8. Zofran 4 mg p.o. q.6h. p.r.n. 9. Zosyn 3.375 grams IV q. 8 hours for 10 more days. She will need to follow with her regular doctor in the clinic in the next 1 to 2 weeks. FINAL DIAGNOSES: 1. Status post fall with rhabdomyolysis, now improved with aggressive IV fluid hydration. 2. Positive blood cultures for Pantoea and alpha hemolytic strep improved, now on antibiotics for 1 0 more days. 3. Essential hypertension. 4. Dementia, on Aricept. 5. Transaminitis, resolved. 6. Status post fall, see #1. Also ruled out for acute stroke. 7. Old left hip fracture history. Time spent discharging patient 40 minutes. Dictated By: BILLIE REEVES Conf#: [id number] [facility]#: [id number]
== END 2016-08-21 12:35 | DRG 640 ==
LOC: E/R 10:22 → TEL 14:12 → UNDOADMOB 14:12 → OBSVTOIN 08-18 13:55
PROVIDERS: ADMIT Family Medicine; ATTEND Family Medicine
DX: E86.0 Dehydration (principal); G93.40 Encephalopathy, unspecified; R78.81 Bacteremia; F03.90 Unspecified dementia, unspecified severity, without behavioral disturbance, psychotic disturbance, mood disturbance, and anxiety; M62.82 Rhabdomyolysis; M25.552 Pain in left hip; Z91.81 History of falling; A49.1 Streptococcal infection, unspecified site; I10 Essential (primary) hypertension
CPT/HCPCS: 70450; 70551; 72170; 73510; 76705; 80048; 80053; 80061; 80076; 81001; 81003; 82150; 82550; 82553; 83036; 83605; 83690; 83735; 84100; 84443; 84484; 85025; 87040; 87086; 93005; 93306; 96360; 96361; 97110; 97162; 97530; G0378; J1650; J2543; J3480; J7030; J7050

== ENCOUNTER 2016-09-10 12:17 | Inpatient (IN) | payer MEDICARE, BC ==
[~2016-09-10] VITALS: Ht 170.2 cm; Wt 72.0 kg
[2016-09-10] VITALS (7 sets, daily range): BP systolic 86–103; BP diastolic 49–89; PULSE 97–112; RESP 20–27; TEMP 98.7; Ht 170.2 cm; Wt 72.0 kg
[~2016-09-10 12:17] MED LIST changes: -ATOR10TA23 PO; -HYDR25TA6 PO; -KETO5DRO79 LEFT EYE; -OFLO5DRO46 RIGHT EYE; -PRD1OP5 LEFT EYE
[2016-09-10] MEDS ORDERED: CEFEPIME 2GM/50 ML (PMX) 50 ML IVPB STA (12:29)
[2016-09-10] MEDS ORDERED: ALBUTEROL 0.083% (NEB) 2.5 MG/3 ML AMP HHN STA (12:30)
[2016-09-10] MEDS ORDERED: METHYLPREDNISOLONE 125 MG INJ IV ONE (12:30)
[2016-09-10] MEDS ORDERED: VANCOMYCIN 1 GM (PMX) 250 ML IVPB ONE (12:30)
[2016-09-10] MEDS ORDERED: IPRATROPIUM (NEB) 0.5 MG/2.5 ML AMP HHN ONE (12:30)
[2016-09-10] MEDS ORDERED: SODIUM CHLORIDE 0.9% 1L BAG IV* STA (12:40)
[2016-09-10 12:49] LABS: ADD SCAN DIFF NO
[2016-09-10 12:52] LABS: ABNORMAL IP MESSAGE 1; BASOPHIL # 0.1 10^3/ul (0.0-0.1); BASOPHILS % 0.5 % (0.0-2.0); HEMATOCRIT 33.5 % (37.0-47.0); HEMOGLOBIN 10.9 g/dl (12.0-16.0); LYMPHOCYTES # 1.2 10^3/ul (0.8-2.9); LYMPHOCYTES % 11.8 % (15.0-51.0); MEAN CORPUSCULAR HEMOGLOBIN 30.2 pg (29.0-33.0); MEAN CORPUSCULAR HGB CONC 32.5 g/dl (32.0-37.0); MEAN CORPUSCULAR VOLUME 92.8 fl (82.0-101.0); MEAN PLATELET VOLUME 9.1 fl (7.4-10.4); MONOCYTE # 0.5 10^3/ul (0.3-0.9); MONOCYTES % 4.4 % (0.0-11.0); NEUTROPHIL # 8.5 10^3/ul (1.6-7.5); NEUTROPHILS % 82.8 % (39.0-77.0); PLATELET COUNT 374 10^3/UL (140-415); RED BLOOD COUNT 3.61 10^6/ul (4.20-5.40); RED CELL DISTRIBUTION WIDTH 14.8 % (11.5-14.5); WHITE BLOOD COUNT 10.3 10^3/ul (4.8-10.8)
--- NOTE | 2016-09-10 12:59 | RADRPT ---
PROCEDURE: XR Chest 1 View. CLINICAL INDICATION: Shortness of breath, sepsis TECHNIQUE: AP view of the chest was obtained. COMPARISON: February 07, 2016 FINDINGS: The heart size is within normal limits. Calcified atherosclerosis is noted in the aorta. Elevation of the right hemidiaphragm is identified. Patchy infiltrates are identified in the right lower lung . The osseous structures are osteopenic, but appear grossly intact. Degenerative changes are seen i n the shoulders. IMPRESSION: Calcified atherosclerosis in the aorta. Elevation of the right hemidiaphragm. Patchy infiltrates in the right lower lung. RPTAT: AA .Deepak Silva MD, Date Time Electronically viewed and signed by .Deepak Silva MD, on 09/10/2016 12:59 .P/
[2016-09-10 13:03] LABS: INR 1.2; PROTIME 15.3 Sec (12.2-14.2); PT RATIO 1.2
[2016-09-10 13:07] LABS: ALBUMIN/GLOBULIN RATIO 0.9; BILIRUBIN,INDIRECT 0.3 mg/dl (0-1.1); BILIRUBIN,TOTAL 0.3 mg/dl (0.2-1.3); CREATININE 0.87 mg/dl (0.44-1.00); TOTAL PROTEIN 6.3 g/dl (6.1-8.1)
[2016-09-10 13:08] LABS: CALCIUM 9.7 mg/dl (8.4-10.2)
[2016-09-10 13:09] LABS: PARTIAL THROMBOPLASTIN TIME 32.6 Sec (25.0-35.0)
[2016-09-10 13:11] LABS: AADO2 Arterial 463.1 mmHg (7.0-24.0); Allen Test ACCEPTAB; Arterial Base Excess -4.5 mmol/L (-3.0-3); Arterial COHb 0 % (0.0-3.0); Arterial Fraction of Oxyhgb 98.9 % (93.0-99.0); Arterial HCO3 18.2 mmol/L (22.0-26.0); Arterial MetHb 0.2 % (0.0-1.5); Arterial Total Hemglobin 11.5 g/dl (12.0-18.0); Blood Gas IEPAP 15/5; MODE MASK - BIPAP
[2016-09-10 13:11] LABS: POTASSIUM 2.9 mmol/L (3.5-5.1)
[2016-09-10 13:18] LABS: TROPONIN-I 0.026 ng/ml (0.00-0.12)
[2016-09-10] MEDS ORDERED: LEVO500T72 PO (13:21)
[2016-09-10] MEDS ORDERED: POTA20TA15 PO (13:21)
[2016-09-10 13:22] LABS: ADD UMIC YES; URINE BILIRUBIN (Dip) NEGATIVE (NEGATIVE); URINE BLOOD (Dip) NEGATIVE (NEGATIVE); URINE COLOR YELLOW (YELLOW); URINE GLUCOSE (Dip) NEGATIVE (NEGATIVE); URINE KETONES (Dip) 15 (NEGATIVE); URINE LEUKOCYTE ESTERASE (Dip) NEGATIVE (NEGATIVE); URINE NITRITE (Dip) NEGATIVE (NEGATIVE); URINE TOTAL PROTEIN (Dip) 1+ (NEGATIVE); URINE UROBILINOGEN (Dip) 0.2 E.U./dL (0.1-1.0)
[2016-09-10] MEDS ORDERED: CALC600T11 PO (13:24)
[2016-09-10] MEDS ORDERED: PRD1OP5 LEFT EYE (13:25)
[2016-09-10] MEDS ORDERED: OFLO5DRO46 RIGHT EYE (13:26)
[2016-09-10] MEDS ORDERED: TRAM50TA2 PO (13:27)
[2016-09-10] MEDS ORDERED: MULTI PO (13:28)
[2016-09-10] MEDS ORDERED: AMIN30LI PO (13:28)
[2016-09-10] MEDS ORDERED: ASCO500C7 PO (13:29)
[2016-09-10] MEDS ORDERED: ZINC220T PO (13:29)
[2016-09-10] MEDS ORDERED: ONDANSETRON 4 MG INJ IV PRN (13:30)
[2016-09-10] MEDS ORDERED: POTASSIUM CHLORIDE 250 ML IVPB ONE (13:30)
[2016-09-10] MEDS ORDERED: ACETAMINOPHEN 325 MG TAB PO PRN ×2 (13:30→18:30)
[2016-09-10] MEDS ORDERED: FERR220S2 PO (13:33)
[2016-09-10] MEDS ORDERED: DONE5TAB46 PO (13:35)
[2016-09-10] MEDS ORDERED: ENOX30DI10 SQ (13:35)
[2016-09-10] MEDS ORDERED: FAMO20TA18 PO (13:36)
[2016-09-10 13:37] LABS: SQUAMOUS EPITHELIAL CELL,UR OCCASIONAL; URINE RBCS NONE SEEN /HPF (0)
[2016-09-10] MEDS ORDERED: LACT1CAP4 PO (13:38)
[2016-09-10] MEDS ORDERED: CRAN425C PO (13:39)
[2016-09-10] MEDS ORDERED: DEXT15DR9 RIGHT EYE (13:39)
[2016-09-10] MEDS ORDERED: ONDA4TAB8 PO (13:40)
[2016-09-10] MEDS ORDERED: DOCU-144 PO (13:41)
[2016-09-10] MEDS ORDERED: MAGN400O4 PO (13:41)
[2016-09-10] MEDS ORDERED: BISA10SU55 RC (13:42)
[2016-09-10] MEDS ORDERED: NA P135E RC (13:43)
--- NOTE | 2016-09-10 14:08 | ERA ---
ER Documentation Chief Complaint Date/Time DATE: 09/10/16 TIME: 14:04 Chief Complaint SOB low 02 saturation HPI Patient is an 86-year-old female with COPD who presents with shortness of breath. The patient was brought in by ambulance. She came from a convalescent home with shortness of breath. CPAP was started by paramedics. I spoke with her son who says that she recently was diagnosed with pneumonia and started with Levaquin yesterday. Please note the history and physical exam is limited secondary to the patient's shortness of breath. Her primary doctor is Dr. Carlson. ROS All systems reviewed and are negative except as per history of present illness. Medications Home Meds Reported Medications Na Phos,M-B/Na Phos,Di-Ba (ENEMA READY TO USE) 135 Ml Enema, 135 ML RC EVERY 2 DAYS Y for CONSTIPATION, ENEMA 09/10/16 Bisacodyl (Dulcolax) 10 Mg Supp.rect, 10 MG RC PRN Y for CONSTIPATION, SUPP.RECT 09/10/16 Magnesium Hydroxide* (Milk Of Magnesia*) 400 Mg/5 Ml Oral.susp, 30 ML PO QHS Y for CONSTIPATION, ML 09/10/16 Docusate Sodium* (Colace*) 100 Mg Capsule, 100 MG PO QHS, #30 CAP 09/10/16 Ondansetron Hcl* (Zofran*) 4 Mg Tablet, 4 MG PO Q6H Y for NAUSEA AND OR VOMITING , TAB 09/10/16 Cranberry Extract (Cranberry) 425 Mg Capsule, 425 MG PO DAILY, CAP 09/10/16 Dextran 70/Hypromellose (Tears Pure Drops) 15 Ml Drops, 1 DRP RIGHT EYE QID, BOTTLE 09/10/16 Lactobacillus Acidophilus/Pect (Acidophilus-Pectin Capsule) 1 Each Capsule, 1 EACH PO BID, CAP 09/10/16 Famotidine* (Famotidine*) 20 Mg Tablet, 20 MG PO DAILY, #30 TAB 0630AM 09/10/16 Enoxaparin Sodium* (Lovenox*) 30 Mg/0.3 Ml Disp.syrin, 30 MG SQ DAILY, SYR 09/10/16 Donepezil* (Aricept*) 5 Mg Tablet, 5 MG PO DAILY, TAB 09/10/16 Ferrous Sulfate (Ferrous Sulfate) 220 Mg/5 Ml Solution, 325 MG PO BID 09/10/16 Zinc Sulfate* (Zinc Sulfate*) 220 Mg Tablet, 220 MG PO DAILY, TAB 09/10/16 Ascorbic Acid* (Vitamin C*) 500 Mg Capsule.sa, 500 MG PO TID, CAP 09/10/16 Multivitamins* (Theragran*) 1 Tab Tab, 1 TAB PO BID, TAB 09/10/16 Amino Acids/Protein Hydrolys (PRO-STAT LIQUID) 30 Ml Liquid.pkt, 30 ML PO BID 09/10/16 Tramadol HCl (Tramadol HCl) 50 Mg Tablet, 50 MG PO BID, #60 TAB 09/10/16 Ofloxacin* (Ocuflox*) 0.3%-5 Ml Ophth Drops, 1 DROP RIGHT EYE QID, BOTTLE 09/10/16 Prednisolone Acetate* (Pred Forte*) 5 Ml Susp, 1 DROP LEFT EYE DAILY, EA 09/10/16 Calcium Carbonate* (Calcium Carbonate*) 600 MG Ca Tab, 600 MG PO DAILY, TAB 09/10/16 Levofloxacin* (Levaquin*) 500 Mg Tablet, 500 MG PO DAILY, TAB STARTED 09-09-16 FOR 7 DAYS 09/10/16 Potassium Chloride* (K-Dur*) 20 Meq Tab.prt.sr, 40 MEQ PO DAILY, TAB.SA pt started this at 10:15 am on 09-10-16 REPEAT AFTER 6 HRS IF LEVAL IS LOW REPEAT IN THE AM 09/10/16 Discontinued Reported Medications Lisinopril* (Lisinopril*) 40 Mg Tablet, 40 MG PO DAILY 12/07/11 Allergies Allergies: Coded Allergies: No Known Allergy (Unverified , 09/10/16) PMhx/Soc Medical and Surgical Hx: pt denies Surgical Hx History of Surgery: No Anesthesia Reaction: No Hx Neurological Disorder: Yes (spinal stenosis) Hx Respiratory Disorders: No Hx Cardiac Disorders: Yes (htn) Hx Psychiatric Problems: No Hx Miscellaneous Medical Probl: No Hx Alcohol Use: No Hx Substance Use: No Hx Tobacco Use: No Smoking Status: Never smoker FmHx Positive for hypertension Physical Exam Vitals Vital Signs Date Time Temp Pulse Resp B/P Pulse Ox O2 Delivery O2 Flow Rate FiO2 09/10/16 13:31 97.7 111 20 111/64 100 BIPAP 09/10/16 12:30 Non Rebreather 10 09/10/16 12:26 98.1 121 30 114/65 86 09/10/16 12:23 120 94 100 Physical Exam Const: Shortness of breath on CPAP Head: Atraumatic Eyes: Normal Conjunctiva ENT: Normal External Ears, Nose and Mouth. Neck: Full range of motion..~ No meningismus. Resp: Tachypnea with decreased breath sounds bilaterally Cardio: Regular rate and rhythm, no murmurs Abd: Soft, non tender, non distended. Normal bowel sounds Skin: No petechiae or rashes Back: No midline or flank tenderness Ext: No cyanosis, or edema Neur: Awake but short of breath Result Diagram: 09/10/16 1215 09/10/16 1215 Results 24 hrs Laboratory Tests Test 09/10/16 12:15 09/10/16 12:29 09/10/16 12:50 White Blood Count 10.310^3/ul Red Blood Count 3.6110^6/ul Hemoglobin 10.9g/dl Hematocrit 33.5% Mean Corpuscular Volume 92.8fl Mean Corpuscular Hemoglobin 30.2pg Mean Corpuscular Hemoglobin Concent 32.5g/dl Red Cell Distribution Width 14.8% Platelet Count 33919^3/UL Mean Platelet Volume 9.1fl Neutrophils % 82.8% Lymphocytes % 11.8% Monocytes % 4.4% Eosinophils % 0.0% Basophils % 0.5% Nucleated Red Blood Cells % 0.0/100WBC Neutrophils # 8.510^3/ul Lymphocytes # 1.210^3/ul Monocytes # 0.510^3/ul Eosinophils # 0.010^3/ul Basophils # 0.110^3/ul Nucleated Red Blood Cells # 0.010^3/ul Prothrombin Time 15.3Sec Prothrombin Time Ratio 1.2 INR International Normalized Ratio 1.20 Activated Partial Thromboplast Time 32.6Sec Sodium Level 143mmol/L Potassium Level 2.9mmol/L Chloride Level 101mmol/L Carbon Dioxide Level 23mmol/L Anion Gap 22 Blood Urea Nitrogen 30mg/dl Creatinine 0.87mg/dl Glucose Level 109mg/dl Lactic Acid Level 3.1mmol/L Calcium Level 9.7mg/dl Total Bilirubin 0.3mg/dl Direct Bilirubin 0.00mg/dl Indirect Bilirubin 0.3mg/dl Aspartate Amino Transf (AST/SGOT) 41IU/L Alanine Aminotransferase (ALT/SGPT) 30IU/L Alkaline Phosphatase 102IU/L Troponin I 0.026ng/ml Total Protein 6.3g/dl Albumin 3.0g/dl Globulin 3.30g/dl Albumin/Globulin Ratio 0.90 Blood Gas Specimen Source Blood arterial Arterial Blood Date Drawn 09/10/2016 1:04:03 PM Arterial Blood pH (Temp corrected) 7.451 Arterial Blood pCO2 (Temp correct) 26.7mmhg Arterial Blood pO2 (Temp corrected) 223.2mmHG Arterial Blood HCO3 18.2mmol/L Arterial Blood Base Excess -4.5mmol/L Arterial Blood Oxygen Saturation 99.1mmHG Gomez Test ACCEPTAB Arterial Blood Gas Puncture Site Right Radial Arterial Blood Carboxyhemoglobin 0% Arterial Blood Methemoglobin 0.2% Blood Gas A-a O2 Differential 463.1mmHg Oxyhemoglobin Percent 98.9% Total Hemoglobin 11.5g/dl Blood Gas Temperature 37.0C Blood Gas Respiration Rate 14.0 Blood Gas Actual Respiration Rate 27 Blood Gas Modality MASK - BIPAP FiO2 100.0% Blood Gas IPAP/EPAP Ratio 15/5 Blood Gas Notified Whom JLD Blood Gas Notified Time 09/10/2016 1:11:47 PM Urine Color YELLOW Urine Clarity SLIGHTLY CLOUDY Urine pH 6.0 Urine Specific Alpha 1.025 Urine Ketones 15 Urine Nitrite NEGATIVE Urine Bilirubin NEGATIVE Urine Urobilinogen 0.2 E.U./dL Urine Leukocyte Esterase NEGATIVE Urine Microscopic RBC NONE SEEN/HPF Urine Microscopic WBC 0-2/HPF Urine Squamous Epithelial Cells OCCASIONAL Urine Amorphous Phosphates MODERATE Urine Hemoglobin NEGATIVE Urine Glucose NEGATIVE% Urine Total Protein 1+ Current Medications Medications (Trade) Dose Ordered Sig/Noé Route PRN Reason Start Time Stop Time Status Last Admin Dose Admin Cefepime HCl 50 ml @ 100 mls/hr ONCE STAT IVPB 09/10/16 12:29 09/10/16 12:58 DC 09/10/16 12:37 Vancomycin HCl (Vancocin) 250 ml @ 125 mls/hr ONCE ONCE IVPB 09/10/16 12:30 09/10/16 14:29 09/10/16 13:18 Methylprednisolone Sodium Succinate (Solu-Medrol) 125 mg ONCE ONCE IV 09/10/16 12:30 09/10/16 12:42 DC 09/10/16 12:37 Albuterol (Proventil 0.083% (Neb)) 5 mg ONCE STAT HHN 09/10/16 12:30 09/10/16 12:31 DC 09/10/16 12:41 Ipratropium [place] (Atrovent 0.02% (Neb)) 0.5 mg ONCE ONCE HHN 09/10/16 12:30 09/10/16 12:31 DC 09/10/16 12:41 Sodium Chloride 2230 ml 2,230 ml BOLUS OVER 2 HOURS STAT IV* 09/10/16 12:40 09/10/16 12:41 DC 09/10/16 13:18 Potassium Chloride (KCl 40 MEQ/250 ML NS) 250 ml @ 62.5 mls/hr ONCE ONCE IVPB 09/10/16 13:30 09/10/16 17:29 Ondansetron HCl (Zofran Inj) 4 mg ER BRIDGE PRN IV NAUSEA AND/OR VOMITING 09/10/16 13:30 09/11/16 13:29 Acetaminophen (Tylenol Tab) 650 mg ER BRIDGE PRN PO MILD PAIN/FEVER 09/10/16 13:30 09/11/16 13:29 Procedures/MDM Chest x-ray shows pneumonia per radiology. EKG read by me: Rate/Rhythm: Sinus tachycardia rate 113 Intervals: Normal Impression: Sinus tachycardia without evidence of ischemia Admit MDM: Patient's infectious symptoms have not stabilized and the patient is at risk of rapid decompensation. The patient will be admitted for careful hydration, antibiotic therapy, and infectious source control. Severe Sepsis criteria: Infectious source: Pneumonia End organ damage indicated by: Lactate greater than 2 Sepsis Management: Time of recognition of sepsis: 12:15 Within 3 hours of recognition: Blood cultures x 2 before broad-spectrum antibiotics: Yes 30 ml/kg NS bolus Completed Initial lactate 3.1 Repeat lactate pending Time of recognition of septic shock: No septic shock Septic Shock Assessment: Any lactic acid > 4.0 No Persistent hypotension (SBP < 90 or 40 mmHg drop, MAP < 65) despite 30 mL/kg IV fluid bolus No Volume Re-assessment for Septic Shock (post 30 ml/kg bolus): No septic shock at this time Persistent Hypotension Treatment: Comfort care No Central line Not Required Vasopressor started Not required I considered further perfusion assessment with CVP measurement, SCVO2, bedside ultrasound volume assessment, passive leg raise, trial of further fluid bolus. And proceeded with 30 ml/kg fluid bolus of NSS, broad spectrum antibiotics, and admission. Accepting Care Team Current data and ongoing care discussed. Admitting Physician: Dr. Carlson who is the patient's primary doctor Brim Blocker(s): Dr. Wilson from pulmonology Outstanding Data: Culture results and repeat lactic acid Critical Care: Critical care time 35 minutes excluding all billable procedures Emergent fluid management while maintaining close respiratory support. Provision of immediate and broad-spectrum antibiotic therapy. Simultaneous assessment for possible sources in order to direct targeted therapy. Consideration for invasive and chemical support to prevent cardiopulmonary collapse. Departure Diagnosis: Primary Impression: Severe sepsis Additional Impressions: Shortness of breath Pneumonia Qualified Code: J18.9 - Pneumonia of right lower lobe due to infectious organism Condition: Serious JOSHUA GARCIA MD Sep 10, 2016 14:08
[2016-09-10] MEDS ORDERED: ONDANSETRON 4 MG TAB PO PRN (18:30)
[2016-09-10] MEDS ORDERED: MAGNESIUM HYDROXIDE 30ML CUP PO PRN (18:30)
[2016-09-10] MEDS ORDERED: NACL 0.9% 3 ML SYG IV SCH (18:30)
[2016-09-10] MEDS ORDERED: DOCUSATE SODIUM 100 MG CAP PO PRN (18:30)
[2016-09-10] MEDS ORDERED: LORAZEPAM 0.5 MG TAB PO PRN (18:30)
[2016-09-10] MEDS ORDERED: ZOLPIDEM 5 MG TAB PO PRN (18:30)
[2016-09-10] MEDS ORDERED: VANCOMYCIN IV PER PHARMACY XX SCH (18:30)
[2016-09-10] MEDS ORDERED: NITROGLYCERIN (SL) 0.4 MG TAB SL PRN (18:30)
[2016-09-10] MEDS ORDERED: ACETAMINOPHEN 650 MG SUPP PR PRN (18:30)
[2016-09-10 20:42] LABS: CK-MB 1.97 ng/ml (0.0-2.4)
[2016-09-10 20:45] LABS: TROPONIN-I 0.025 ng/ml (0.00-0.12)
[2016-09-10] MEDS: 1/2 NS + KCL 20 MEQ 1,000 ML IV SCH (23:06)
[2016-09-10] MEDS: FAMOTIDINE 20 MG TAB PO SCH (23:06)
[2016-09-11] VITALS (20 sets, daily range): BP systolic 94–128; BP diastolic 49–63; PULSE 74–105; RESP 18
--- NOTE | 2016-09-11 00:58 | CONS ---
DATE OF ADMISSION: 09/10/2016 DATE OF CONSULTATION: 09/10/2016 REASON FOR ADMISSION: Increasing shortness of breath. HISTORY OF PRESENT ILLNESS: This is an 86-year-old lady with multiple medical problems, who present ed with a several-day history of increasing shortness of breath, orthopnea, PND, mild hypoxemia on e valuation in the emergency room, unable to talk in full and complete sentences, placed on noninvasiv e positive pressure ventilation with clinical improvement. Patient is unable to give me further det ails. PAST MEDICAL HISTORY: COPD, history of rhabdomyolysis, hypertension, mild dementia, history of prio r hip fracture. MEDICATIONS: Per chart. ALLERGIES: NONE. SOCIAL HISTORY: Nonsmoker, no alcohol, no history of drug use. FAMILY HISTORY: Noncontributory. SYSTEMS REVIEW: A 12-pto review of systems currently unable to perform. PHYSICAL EXAMINATION: GENERAL: An elderly appearing lady, appears comfortable at rest, no acute distress. VITAL SIGNS: Currently afebrile, pulse is 100, blood pressure 99/52, O2 saturation 96% on FIO2 of 5 0%. NECK: Supple. No JVD or lymphadenopathy. CARDIAC: S1, S2, no added sounds or murmurs. CHEST: Diminished air entry bilaterally with rales. ABDOMEN: Obese, soft, nontender, no guarding, no rebound. EXTREMITIES: No cyanosis, clubbing, 2+ edema. NEUROLOGIC: Generalized weakness. LABORATORIES: White count 10.3, hemoglobin 10.9, platelets 374. BUN 30, creatinine 0.87, lactic ac id initially 3.1, now 4.9. Arterial blood gas showed a pH of 7.45, pCO2 of 26, PaO2 of 223 with a b icarbonate of 18. INR was 1.2. DIAGNOSTIC DATA: Chest x-ray was reviewed, showed patchy bilateral infiltrates, right side greater than left. EKG showed no acute ischemic changes. IMPRESSION AND PLAN: 1. Acute hypoxemic respiratory failure, likely secondary to a combination of healthcare-associated pneumonia versus aspiration pneumonia. 2. Severe sepsis. 3. History of dementia. 4. Renal insufficiency. The patient will require: 1. Continued volume resuscitation. 2. Broad-spectrum antibiotic coverage currently on vancomycin and Levaquin. 3. Continued noninvasive positive pressure ventilation. 4. Aspiration precautions. 5. Speech therapy evaluation once stable. 6. Deep venous thrombosis and GI prophylaxis. 7. Consider addressing code status given multiple medical problems and frequent admissions to the ospital. Dictated By: MURIEL CLARK/DEON Conf#: [id number] DID#: [id number]
[2016-09-11 01:09] LABS: CK-MB 1.9 ng/ml (0.0-2.4)
[2016-09-11 01:12] LABS: TROPONIN-I 0.029 ng/ml (0.00-0.12)
[2016-09-11] MEDS: 1/2 NS + KCL 20 MEQ 1,000 ML IV SCH (05:44)
[2016-09-11] MEDS: OFLOXACIN 0.3% 5 ML OPH RIGHT EYE SCH ×5 (05:44→21:55)
[2016-09-11] MEDS: ARTIFICIAL TEARS 15 ML OPH BOTH EYES SCH ×4 (05:44→21:55)
[2016-09-11 06:36] LABS: ADD UMIC YES; URINE BILIRUBIN (Dip) NEGATIVE (NEGATIVE); URINE BLOOD (Dip) NEGATIVE (NEGATIVE); URINE COLOR DK. YELLOW (YELLOW); URINE GLUCOSE (Dip) NEGATIVE (NEGATIVE); URINE KETONES (Dip) TRACE (NEGATIVE); URINE LEUKOCYTE ESTERASE (Dip) NEGATIVE (NEGATIVE); URINE NITRITE (Dip) NEGATIVE (NEGATIVE); URINE TOTAL PROTEIN (Dip) 2+ (NEGATIVE); URINE UROBILINOGEN (Dip) 0.2 E.U./dL (0.1-1.0)
[2016-09-11 06:55] LABS: ADD SCAN DIFF NO
[2016-09-11 06:57] LABS: ABNORMAL IP MESSAGE 1; HEMATOCRIT 27.8 % (37.0-47.0); HEMOGLOBIN 8.9 g/dl (12.0-16.0); MEAN CORPUSCULAR HEMOGLOBIN 30.2 pg (29.0-33.0); MEAN CORPUSCULAR VOLUME 94.2 fl (82.0-101.0); MEAN PLATELET VOLUME 9.3 fl (7.4-10.4); PLATELET COUNT 247 10^3/UL (140-415); RED BLOOD COUNT 2.95 10^6/ul (4.20-5.40); RED CELL DISTRIBUTION WIDTH 15.2 % (11.5-14.5); WHITE BLOOD COUNT 11.3 10^3/ul (4.8-10.8)
[2016-09-11 07:05] LABS: ALBUMIN 2.4 g/dl (3.3-4.9)
[2016-09-11 07:07] LABS: INR 1.54; PROTIME 18.6 Sec (12.2-14.2); PT RATIO 1.5
[2016-09-11 07:08] LABS: ALBUMIN/GLOBULIN RATIO 0.8; BILIRUBIN,INDIRECT 0.4 mg/dl (0-1.1); BILIRUBIN,TOTAL 0.4 mg/dl (0.2-1.3); CREATININE 0.8 mg/dl (0.44-1.00); TOTAL PROTEIN 5.4 g/dl (6.1-8.1)
[2016-09-11 07:09] LABS: CALCIUM 8.5 mg/dl (8.4-10.2); MAGNESIUM 2.3 mg/dl (1.7-2.5)
[2016-09-11 07:12] LABS: PARTIAL THROMBOPLASTIN TIME 37.2 Sec (25.0-35.0)
[2016-09-11 07:38] LABS: THYROID STIMULATING HORMONE 0.627 MIU/L (0.465-4.680)
[2016-09-11 07:39] LABS: BACTERIA,URINE FEW; URINE RBCS 0-2 /HPF (0)
[2016-09-11 07:57] LABS: POTASSIUM 2.9 mmol/L (3.5-5.1)
--- NOTE | 2016-09-11 08:10 | RADRPT ---
PROCEDURE: Chest x-ray CLINICAL INDICATION: Shortness of breath TECHNIQUE: Chest single view COMPARISON: 09/10/2016 FINDINGS: The heart is normal in size. The pulmonary vessels are normal in caliber. There is stable atheroscl erotic aortic calcification. Os interval worsening right lung pneumonia. Costophrenic angles are s harp. Gaseous distension is noted of bowel loops in the upper abdomen IMPRESSION: 1. Worsening right lung pneumonia. 2. Stable atherosclerotic aortic calcification RPTAT: HH .Yakov Pelayo MD, MD Date Time Electronically viewed and signed by .Yakov Pelayo MD, on 09/11/2016 08:10 .W/
[2016-09-11 08:56] LABS: AADO2 Arterial 254.4 mmHg (7.0-24.0); Allen Test ACCEPTAB; Arterial Base Excess -6.3 mmol/L (-3.0-3); Arterial COHb 0.1 % (0.0-3.0); Arterial Fraction of Oxyhgb 93.5 % (93.0-99.0); Arterial MetHb 0 % (0.0-1.5); Arterial Total Hemglobin 9.5 g/dl (12.0-18.0); Blood Gas IEPAP 15/5; MODE MASK - BIPAP
[2016-09-11] MEDS ORDERED: POTASSIUM CHLORIDE 40 MEQ in DEXTROSE 5% 250 ML IV ONE (09:00)
[2016-09-11] MEDS: POTASSIUM CHLORIDE 30 MEQ in DEXTROSE 5% 1,000 ML IV SCH ×2 (09:29→16:55)
[2016-09-11] MEDS: ENOXAPARIN 30 MG/0.3 ML SYG SC SCH (09:38)
--- NOTE | 2016-09-11 09:58 | PN ---
DATE: 09/11/2016 TIME SEEN: Approximately 7:30 a.m. SUBJECTIVE: Patient is arousable although she appears to be sleepy and non alert, but is easily responsive, recognized me, answered questions appropriately. PHYSICAL EXAMINATION VITAL SIGNS: Revealed a temperature of 98.1, pulse of 74, blood pressure 94/49 , pulse oximetry 93% on BiPAP machine. HEENT: Unremarkable. LUNGS: Reveal scattered wheezes. HEART: Reveals a regular rhythm. ABDOMEN: Reveals distension. Questionable tenderness. IMPRESSION: 1. Pneumonia and respiratory failure. 2. Abdominal distention, etiology to be determined. 3. Hyperlipidemia. 4. Dementia. 5. Anemia, etiology to be determined. DISCUSSION: Laboratory reveals a markedly lower potassium, albeit normal sodium and chloride is slightly elevated. Laboratory data otherwise is unremarkable. PLAN: Correct potassium abnormality, will discuss with Dr. Wilson in terms of her further management and evaluation. CONDITION: Guarded. Dictated By: LISA MALIN/DEON Conf#: [id number] DID#: [id number]
--- NOTE | 2016-09-11 10:07 | HP ---
DATE OF ADMISSION: 09/10/2016 HISTORY OF PRESENT ILLNESS: This is one of several [facility] admissions for this 86-year-old woman admitted with chief complaint of cough, shortness of breath, and weakness. The patient was residing in usual rehabilitation unit post-hospitalization when she was discharged earlier this month following a hospitalization for rhabdomyolysis. The patient was doing relatively well when she started coughing and eventually lost her appetite and x-ray revealed an infiltrate, and the patient currently admitted, found to be short of breath, weak, and hypoxemic. Paramedics brought this patient into the emergency room and my initial evaluation was the emergency room at [facility]. The patient' s past medical history other than the admission mentioned above at the beginning of this month and one earlier in 2016 for sepsis has been relatively uneventful. She had anal fissure surgery. Also had chronic back issues, but has not had any major prior medical history prior to the most recent past. Major other issues, she had been taking some statin therapy in the past, but has not taken any lately and currently was taking the following medications when she came to the emergency room: 1. Levofloxacin 500 mg daily which was started 09/09/2016. 2. Aricept 5 mg a day. 1. Lovenox 30 mg daily for clot prevention. 2. Ferrous sulfate 220 mg daily. 3. Tramadol as needed q.6h., 50 mg for pain. 4. Calcium carbonate 600 mg daily. 5. Potassium chloride 20 mEq one b.i.d. 6. Zinc sulfate teardrops and eyedrops which will be reordered. 7. Stool softeners 8. Famotidine 20 mg a day. A variety of other p.r.n. medications as well as herbal supplements. ALLERGIES: SHE HAS NO KNOWN DRUG ALLERGIES. SOCIAL HISTORY: The patient is a , has 1 son, 3 grandchildren. She does not smoke or drink alcoholic beverages, periodic coffee or tea drinker. Has no difficulty sleeping at night and recently has been a resident of a rehab facility following her hospitalization on 08/16/2016 and her discharge on 2016. FAMILY HISTORY: Father is in his 60s of dementia. Mother in her 80s, had rheumatic fever. One brother of diabetes complications. Family history of diabetes, heart disease, cancer, hypertension. No strokes to her knowledge. REVIEW OF SYSTEMS: HEENT: Periodic headaches. CARDIORESPIRATORY: Currently has shortness of breath and cough, but denied any significant chest pain. GASTROINTESTINAL: No melena or hematemesis; however, lately has been complaining of abdominal discomfort. GENITOURINARY: No urgency, frequency. GYNECOLOGIC: Post menopause. MUSCULOSKELETAL: Positive for chronic back issues and spinal stenosis. NEUROPSYCHIATRIC: Unremarkable. GENERAL HEALTH: As above. PHYSICAL EXAMINATION: VITAL SIGNS: The patient's blood pressure was 103/56, pulse was 74 and regular , temperature was 98.1, O2 saturation 93% on a BiPAP machine, respiratory rate 18. PAST SURGICAL HISTORY: Unremarkable other than the patient has a BiPAP machine. GENERAL: The patient was noted to be a well-developed, well-nourished female, rousable, but mostly sleepy, in no acute distress other than her BiPAP machine for breathing. Recognized me by name, was at least oriented to person. HEAD, EARS, EYES, NOSE, AND THROAT: Head was atraumatic. Eyes: Pupils were equal, reactive to light and accommodation. Fundi were poorly visualized. Tympanic membranes were unremarkable. Nose was unremarkable. Mouth: Fair oral hygiene was present. NECK: Supple without any rigidity. Trachea was midline. Thyroid was palpable , possibly slightly enlarged. Neck veins were flat. Carotid pulses were equal. No bruits were heard. BACK: Unremarkable. CHEST: Symmetrical. BREASTS AND AXILLARY: Did not reveal any masses. LUNGS: Reveal scattered wheezes and rhonchi. HEART: PMI was in the 5th intercostal space at the midclavicular line. A regular sinus rhythm was noted. No significant murmurs, rubs, or gallops being elicited. ABDOMEN: Firm, somewhat distended. No obvious tenderness to palpation. No obvious organomegaly, masses, or tenderness. GENITALIA: Normal female external genitalia. EXTREMITIES: Did not reveal any clubbing, edema, or cyanosis. Peripheral pulses were physiologic. SKIN: Moist and warm without any eruptions. No gross lymphadenopathy was noted. NEUROLOGIC: Grossly intact. IMPRESSION: 1. Pneumonia and respiratory failure with hypoxemia. 2. History of cognitive disorder. 3. History of hyperlipidemia. 4. Abdominal discomfort, etiology to be determined. DISCUSSION: Review of laboratory and other data revealed the following: The patient's CBC revealed post-hydration white count of 11.3, hemoglobin of 8.9, hematocrit of 27.8. The patient's chemistry panel reveals a potassium of 2.9, a normal sodium and a low CO2, random glucose 118. The patient's magnesium was normal. Calcium was normal. Liver function tests were normal. Total protein was low, and TSH was within normal limits. The patient's imaging yesterday: Chest x-ray done in the emergency room revealed a patchy infiltrate in the right lower lobe. EKG did not reveal any acute changes and cardiac enzymes were unremarkable. Plan is to continue patient hydration. Will evaluate GI status after pulmonary status is corrected. Also, the patient is being followed and was seen in the emergency room by Dr. Wilson as well as myself. CONDITION ON ADMISSION: Guarded. PROGNOSIS: Secondary to patient's multiple problems and her age. Dictated By: LISA MALIN/DEON Conf#: [id number] DID#: [id number] MTDD
[2016-09-11 10:33] LABS: LYMPHOCYTES # 0.7 10^3/ul (0.8-2.9); MONOCYTE # 0.5 10^3/ul (0.3-0.9); MYELOCYTES # 0.2
--- NOTE | 2016-09-11 10:37 | RADRPT ---
Vent Rate: 75 bpm RR Interval: 0 msec OH Interval: 126 msec QRS Duration: 98 msec QT Interval: 420 msec QTC Interval: 469 msec P-R-T [place]: 35 - 46 - 36 degrees Normal sinus rhythm Normal ECG Electronically Signed By: Austyn Brownlee [id number]
[2016-09-11] MEDS: DONEPEZIL 5 MG TAB PO SCH (10:46)
[2016-09-11] MEDS: LEVOFLOXACIN 500 MG TAB PO SCH (10:46)
[2016-09-11] MEDS: FAMOTIDINE 20 MG TAB PO SCH ×2 (10:46→21:54)
[2016-09-11] MEDS: ASPIRIN 81 MG TAB PO SCH (10:46)
--- NOTE | 2016-09-11 12:08 | CONS ---
Date/Time of Note Date/Time of Note DATE: 09/11/16 TIME: 12:06 Assessment/Plan Assessment/Plan Additional Assessment/Plan Assessment recommendations; 1. Patient admitted for bilateral pneumonia currently on broad-spectrum antibiotic coverage. With some clinical improvement over the last 24 hours. 2. Underlying COPD, hypertension. Continue current treatment. Will obtain follow-up chest x-ray in 48 hours. Consultation Date/Type/Reason Admit Date/Time Sep 10, 2016 at 13:29 Initial Consult Date Type of Consultation: Pulmonary 24 HR Interval Summary Free Text/Dictation Patient condition is tenuous at best. Still requiring 100% FiO2 for O2 saturation maintenance with the patient is reporting improvement in her symptoms. Remains awake and alert. General exam; elderly woman, currently in no distress. Exam/Review of Systems Vital Signs Vitals Vital Signs Date Time Temp Pulse Resp B/P Pulse Ox O2 Delivery O2 Flow Rate FiO2 09/11/16 11:12 97.8 113 18 128/63 96 09/11/16 09:10 50 09/10/16 19:13 BIPAP 09/10/16 12:30 10 Intake and Output 09/10/16 09/10/16 09/11/16 15:00 23:00 07:00 Intake Total 1125 ml Output Total 250 ml 300 ml Balance -250 ml 825 ml Exam HEENT examination; supple neck, no JVD. No lymphadenopathy. Midline trachea. No thyromegaly. Pharynx is clear. Patient had bilateral intraocular lens implants. She has dentures. Chest examination; diminished but clear vessel bilaterally. S1-S2 audible, no murmurs. Regular rhythm. Abdomen examination; soft, nontender. No organomegaly. Protuberant. Bowel sounds audible. Extremity examination; no peripheral edema. JUNIOR NET DEVELOPER examination; no focal deficit. Results Result Diagram: 09/11/16 0627 09/11/16 0635 Results 24 hrs Laboratory Tests Test 09/10/16 12:15 09/10/16 12:29 09/10/16 12:50 09/10/16 14:20 White Blood Count 10.3 # Red Blood Count 3.61 L Hemoglobin 10.9 L Hematocrit 33.5 L Mean Corpuscular Volume 92.8 Mean Corpuscular Hemoglobin 30.2 Mean Corpuscular Hemoglobin Concent 32.5 Red Cell Distribution Width 14.8 H Platelet Count 374 # Mean Platelet Volume 9.1 Neutrophils % 82.8 H Lymphocytes % 11.8 L Monocytes % 4.4 Eosinophils % 0.0 Basophils % 0.5 Nucleated Red Blood Cells % 0.0 Neutrophils # 8.5 H Lymphocytes # 1.2 Monocytes # 0.5 Eosinophils # 0.0 Basophils # 0.1 Nucleated Red Blood Cells # 0.0 Prothrombin Time 15.3 H Prothrombin Time Ratio 1.2 INR International Normalized Ratio 1.20 Activated Partial Thromboplast Time 32.6 Sodium Level 143 Potassium Level 2.9 *L Chloride Level 101 Carbon Dioxide Level 23 Anion Gap 22 H Blood Urea Nitrogen 30 H Creatinine 0.87 Glucose Level 109 Lactic Acid Level 3.1 H 5.7 *H Calcium Level 9.7 Total Bilirubin 0.3 Direct Bilirubin 0.00 Indirect Bilirubin 0.3 Aspartate Amino Transf (AST/SGOT) 41 Alanine Aminotransferase (ALT/SGPT) 30 Alkaline Phosphatase 102 Troponin I 0.026 Total Protein 6.3 Albumin 3.0 L Globulin 3.30 H Albumin/Globulin Ratio 0.90 Blood Gas Specimen Source Blood arterial Arterial Blood Date Drawn 09/10/2016 1:04:03 PM Arterial Blood pH (Temp corrected) 7.451 H Arterial Blood pCO2 (Temp correct) 26.7 L Arterial Blood pO2 (Temp corrected) 223.2 H Arterial Blood HCO3 18.2 L Arterial Blood Base Excess -4.5 L Arterial Blood Oxygen Saturation 99.1 Gomez Test ACCEPTAB Arterial Blood Gas Puncture Site Right Radial Arterial Blood Carboxyhemoglobin 0 Arterial Blood Methemoglobin 0.2 Blood Gas A-a O2 Differential 463.1 H Oxyhemoglobin Percent 98.9 Total Hemoglobin 11.5 L Blood Gas Temperature 37.0 Blood Gas Respiration Rate 14.0 Blood Gas Actual Respiration Rate 27 Blood Gas Modality MASK - BIPAP FiO2 100.0 Blood Gas IPAP/EPAP Ratio 15/5 Blood Gas Notified Whom JLD Blood Gas Notified Time 09/10/2016 1:11:47 PM Urine Color YELLOW Urine Clarity SLIGHTLY CLOUDY Urine pH 6.0 Urine Specific [place] 1.025 Urine Ketones 15 Urine Nitrite NEGATIVE Urine Bilirubin NEGATIVE Urine Urobilinogen 0.2 E.U./dL Urine Leukocyte Esterase NEGATIVE Urine Microscopic RBC NONE SEEN Urine Microscopic WBC 0-2 Urine Squamous Epithelial Cells OCCASIONAL Urine Amorphous Phosphates MODERATE Urine Hemoglobin NEGATIVE Urine Glucose NEGATIVE Urine Total Protein 1+ H Test 09/10/16 16:55 09/10/16 19:30 09/11/16 00:35 09/11/16 06:27 Lactic Acid Level 4.9 *H Platelet Count 317 247 # Creatine Kinase 101 56 Creatine Kinase Index 2.0 3.4 Creatinine Kinase MB (Mass) 1.97 1.90 Troponin I 0.025 0.029 White Blood Count 11.3 H Red Blood Count 2.95 L Hemoglobin 8.9 L Hematocrit 27.8 L Mean Corpuscular Volume 94.2 Mean Corpuscular Hemoglobin 30.2 Mean Corpuscular Hemoglobin Concent 32.0 Red Cell Distribution Width 15.2 H Mean Platelet Volume 9.3 Neutrophils % 9.0 L Band Neutrophils % 69.0 H Lymphocytes % 6.0 L Monocytes % 4.0 Eosinophils % Metamyelocytes % 10.0 H Myelocytes % 2.0 H Neutrophils # 1.0 L Lymphocytes # 0.7 L Monocytes # 0.5 Eosinophils # Metamyelocytes # 1.1 Myelocytes # 0.2 Prothrombin Time 18.6 #H Prothrombin Time Ratio 1.5 INR International Normalized Ratio 1.54 Activated Partial Thromboplast Time 37.2 H Hemoglobin A1c 5.4 Test 09/11/16 06:35 09/11/16 06:55 09/11/16 07:00 Sodium Level 143 Potassium Level 2.9 *L Chloride Level 111 H Carbon Dioxide Level 19 L Anion Gap 16 Blood Urea Nitrogen 33 H Creatinine 0.80 Glucose Level 118 Calcium Level 8.5 Magnesium Level 2.3 Total Bilirubin 0.4 Direct Bilirubin 0.00 Indirect Bilirubin 0.4 Aspartate Amino Transf (AST/SGOT) 29 Alanine Aminotransferase (ALT/SGPT) 31 Alkaline Phosphatase 72 Total Protein 5.4 L Albumin 2.4 L Globulin 3.00 Albumin/Globulin Ratio 0.80 Thyroid Stimulating Hormone (TSH) 0.627 Bedside Glucose 156 Blood Gas Specimen Source Blood arterial Arterial Blood Date Drawn 09/11/2016 8:30:54 AM Arterial Blood pH (Temp corrected) 7.428 Arterial Blood pCO2 (Temp correct) 26.3 L Arterial Blood pO2 (Temp corrected) 72.5 L Arterial Blood HCO3 17.0 L Arterial Blood Base Excess -6.3 L Arterial Blood Oxygen Saturation 93.6 L Gomez Test ACCEPTAB Arterial Blood Gas Puncture Site Right Radial Arterial Blood Carboxyhemoglobin 0.1 Arterial Blood Methemoglobin 0 Blood Gas A-a O2 Differential 254.4 H Oxyhemoglobin Percent 93.5 Total Hemoglobin 9.5 L Blood Gas Temperature 37.0 Blood Gas Respiration Rate 14.0 Blood Gas Actual Respiration Rate 24 Blood Gas Modality MASK - BIPAP FiO2 50.0 Blood Gas IPAP/EPAP Ratio 15/5 Blood Gas Notified Whom JLD Blood Gas Notified Time 09/11/2016 8:55:55 AM Medications Medications Current Medications Lorazepam (Ativan) 0.5 mg Q8H PRN PO ANXIETY; Start 09/10/16 at 18:30 Ondansetron HCl (Zofran Tab) 4 mg Q6H PRN PO NAUSEA AND/OR VOMITING; Start at 18:30 Aspirin (Aspirin) 81 mg DAILY PO Last administered on 09/11/16 10:46; Admin Dose 81 MG; Start 09/11/16 at 09:00 Nitroglycerin (Nitroglycerin (Sl Tab) 0.4 Mg) 1 tab Q5M PRN SL CHEST PAIN; Start 09/10/16 at 18:30 Acetaminophen (Tylenol Tab) 650 mg Q6H PRN PO PAIN LEVEL 1-3 OR FEVER; Start at 18:30 Acetaminophen (Tylenol Supp) 650 mg Q6H PRN MT PAIN LEVEL 1-3 OR FEVER Last administered on 09/10/16 20:05; Admin Dose 650 MG; Start 09/10/16 at 18:30 Zolpidem Tartrate (Ambien) 5 mg QHS PRN PO INSOMNIA; Start 09/10/16 at 18:30 Docusate Sodium (Colace) 100 mg Q12H PRN PO CONSTIPATION; Start 09/10/16 at 18: 30 Magnesium Hydroxide (Milk Of Mag) 30 ml DAILY PRN PO CONSTIPATION; Start at 18:30 Famotidine (Pepcid) 20 mg Q12 PO Last administered on 09/11/16 10:46; Admin Dose 20 MG; Start 09/10/16 at 21:00 Eye Lubricant (Artificial Tears Oph) 1 drop TID BOTH EYES Last administered on 09/11/16 09:28; Admin Dose 1 DROP; Start 09/10/16 at 21:00 Enoxaparin Sodium (Lovenox) 30 mg DAILY SC Last administered on 09/11/16 09:38 ; Admin Dose 30 MG; Start 09/11/16 at 09:00 Donepezil HCl (Aricept) 5 mg DAILY PO Last administered on 09/11/16 10:46; Admin Dose 5 MG; Start 09/11/16 at 09:00 Levofloxacin (Levaquin) 500 mg DAILY PO Last administered on 09/11/16 10:46; Admin Dose 500 MG; Start 09/11/16 at 09:00 Ofloxacin (Ocuflox) 1 drop QID RIGHT EYE Last administered on 09/11/16 09:28; Admin Dose 1 DROP; Start 09/10/16 at 21:00 Prednisolone Acetate 1 drop 1 drop DAILY LEFT EYE ; Start 09/11/16 at 09:00 Vancomycin HCl 250 ml @ 125 mls/hr Q24H IVPB ; Start 09/11/16 at 13:00 Potassium Chloride 40 meq/ Dextrose 270 ml @ 67.5 mls/hr ONCE ONCE IV Last administered on 09/11/16 09:29; Admin Dose 67.5 MLS/HR; Start 09/11/16 at 09:00 ; Stop 09/11/16 at 12:59 Potassium Chloride/Dextrose (KCl/D5W) 1,015 ml @ 125 mls/hr Q8H8M IV Last administered on 09/11/16 09:29; Admin Dose 125 MLS/HR; Start 09/11/16 at 09:00 FRAN CORTSE 23, 2017 12:08
--- NOTE | 2016-09-11 12:51 | RADRPT ---
PROCEDURE: US Abdomen and Retroperitoneum. CLINICAL INDICATION: Abdominal pain TECHNIQUE: Multiple real-time longitudinal and transverse images were acquired of the patient's ab domen and retroperitoneum utilizing a curved array transducer. COMPARISON: 08/16/2016 FINDINGS: The liver is normal in size and echogenicity without focal mass or intrahepatic biliary dilatation. Normal hepatopetal flow is seen within the main portal vein. Multiple stones are present dependently within the gallbladder. There is no pericholecystic fluid or gallbladder wall thickening. No intra or extrahepatic biliary dilatation is seen. The common bile duct measures 3.0 mm in maximal dimensi on. The pancreas is not well seen due to overlying bowel gas.. The spleen is normal in size and ho mogeneous in echogenicity. No free fluid is identified. The right kidney measures 10.1 cm in length. The left kidney measures 10.0 cm in length. There i s normal echogenicity within the kidneys. There are no perinephric fluid collections. No hydroneph rosis, mass, or calculus is seen. The aorta and IVC are unremarkable. IMPRESSION: Cholelithiasis without evidence of cholecystitis. Otherwise, unremarkable exam. RPTAT: JJ .Pankaj Ignacio MD, MD Date Time Electronically viewed and signed by .Pankaj Ignacio MD, on 09/11/2016 12:51 .A/
[2016-09-11 13:04] LABS: POTASSIUM 3.4 mmol/L (3.5-5.1)
[2016-09-11 13:06] LABS: CREATININE 0.76 mg/dl (0.44-1.00)
[2016-09-11 13:07] LABS: CALCIUM 8.8 mg/dl (8.4-10.2)
[2016-09-11] MEDS: VANCOMYCIN 1 GM in NS 250 ML IVPB SCH (14:34)
[2016-09-11] MEDS: PREDNISOLONE ACET 1% 5 ML OPH LEFT EYE SCH (14:34)
[2016-09-12] VITALS (21 sets, daily range): BP systolic 94–126; BP diastolic 52–86; PULSE 65–92; RESP 18–25
[2016-09-12] MEDS: POTASSIUM CHLORIDE 30 MEQ in DEXTROSE 5% 1,000 ML IV SCH (04:24)
[2016-09-12 06:13] LABS: ADD SCAN DIFF NO
[2016-09-12 06:34] LABS: INR 1.2; PROTIME 15.3 Sec (12.2-14.2); PT RATIO 1.2
[2016-09-12 06:35] LABS: PARTIAL THROMBOPLASTIN TIME 42.6 Sec (25.0-35.0)
[2016-09-12 06:58] LABS: CREATININE 0.74 mg/dl (0.44-1.00)
[2016-09-12 07:02] LABS: ABNORMAL IP MESSAGE 1; HEMATOCRIT 30.3 % (37.0-47.0); HEMOGLOBIN 9.6 g/dl (12.0-16.0); MEAN CORPUSCULAR HEMOGLOBIN 29.8 pg (29.0-33.0); MEAN CORPUSCULAR HGB CONC 31.7 g/dl (32.0-37.0); MEAN CORPUSCULAR VOLUME 94.1 fl (82.0-101.0); MEAN PLATELET VOLUME 9.9 fl (7.4-10.4); PLATELET COUNT 252 10^3/UL (140-415); RED BLOOD COUNT 3.22 10^6/ul (4.20-5.40); RED CELL DISTRIBUTION WIDTH 15.3 % (11.5-14.5); WHITE BLOOD COUNT 14.3 10^3/ul (4.8-10.8)
[2016-09-12 07:03] LABS: POTASSIUM 2.9 mmol/L (3.5-5.1)
[2016-09-12] MEDS ORDERED: POTASSIUM CHLORIDE 250 ML IVPB ONE (08:00)
[2016-09-12] MEDS ORDERED: INFLUENZA VIRUS VACCINE 0.5 ML (DISPENSING) IM* ONE (09:00)
[2016-09-12] MEDS: DONEPEZIL 5 MG TAB PO SCH (09:30)
[2016-09-12] MEDS: ENOXAPARIN 30 MG/0.3 ML SYG SC SCH (09:30)
[2016-09-12] MEDS: ASPIRIN 81 MG TAB PO SCH (09:30)
[2016-09-12] MEDS: FAMOTIDINE 20 MG TAB PO SCH ×2 (09:30→21:00)
[2016-09-12] MEDS: OFLOXACIN 0.3% 5 ML OPH RIGHT EYE SCH ×4 (09:33→21:20)
[2016-09-12] MEDS: ARTIFICIAL TEARS 15 ML OPH BOTH EYES SCH ×3 (09:33→21:20)
[2016-09-12] MEDS: PREDNISOLONE ACET 1% 5 ML OPH LEFT EYE SCH (09:34)
[2016-09-12] MEDS: LEVOFLOXACIN 500 MG TAB PO SCH (09:34)
--- NOTE | 2016-09-12 09:41 | PN ---
DATE: 09/12/2016 TIME: Approximately 8:00 a.m. SUBJECTIVE: Patient still on BiPAP mask doing relatively well; however, alert and greeting me appropriately and recognizing me. PHYSICAL EXAMINATION: VITAL SIGNS: Revealed the following, her blood pressure is 113/54, pulse 72, respirations 20, temperature 98, O2 saturation 98%. HEENT: Mask in place. LUNGS: Relatively clear. HEART: Reveals a regular rhythm. IMPRESSION: 1. Pneumonia and hypoxemia. 2. Abdominal distention, etiology to be determined. 3. Hyperlipidemia. 4. Cognitive disorder. 5. Anemia etiology to be determined. DISCUSSION: Patient's laboratory data today revealed white count of 14.3 with elevated neutrophils, hemoglobin is 9.6 which is better than yesterday; however , her neutrophils are still elevated. Again, her potassium was down to 2.9, but the rest of the laboratory parameters including calcium, BUN, creatinine were all within normal limits. DISCUSSION: Plan is to give her a bolus of KCl. Repeat the chemistry panel at about noon and continue the rest of activity per pulmonary in terms of her respiratory status. The patient still is sob Pulmonary management per Dr. Wilson. CONDITION: Stable. Dictated By: LISA MALIN/DEON Conf#: [id number] DID#: [id number] MTDD
[2016-09-12 10:00] LABS: EOSINOPHILS # 0.1 10^3/ul (0.0-0.5); MONOCYTE # 0.1 10^3/ul (0.3-0.9); NEUTROPHIL # 7.4 10^3/ul (1.6-7.5)
[2016-09-12] MEDS: POTASSIUM CHLORIDE 40 MEQ in DEXTROSE 5% 1,000 ML IV SCH ×2 (11:23→17:43)
--- NOTE | 2016-09-12 12:09 | CONS ---
Date/Time of Note Date/Time of Note DATE: 09/12/16 TIME: 12:08 Assessment/Plan Assessment/Plan Additional Assessment/Plan Assessment recommendations; 1. Patient admitted for severe bilateral pneumonia with slow clinical improvement. Continue current treatment. Add Zosyn 3.375 g every 8 hours IV. Continue Levaquin and vancomycin. Consultation Date/Type/Reason Admit Date/Time Sep 10, 2016 at 13:29 Type of Consultation: Pulmonary 24 HR Interval Summary Free Text/Dictation Patient condition is tenuous at best. Still requiring 100% nonrebreather mask for O2 saturation maintenance patient however is completely awake alert and according to her she is feeling better. General exam; elderly woman, currently in no distress awake and alert. Able to talk. Exam/Review of Systems Vital Signs Vitals Vital Signs Date Time Temp Pulse Resp B/P Pulse Ox O2 Delivery O2 Flow Rate FiO2 09/12/16 11:15 97.6 89 22 106/56 100 09/12/16 08:20 50 09/12/16 06:08 15.0 09/10/16 19:13 BIPAP Intake and Output 09/11/16 09/11/16 09/12/16 15:00 23:00 07:00 Intake Total 50 ml 1015 ml Output Total 300 ml 350 ml Balance -250 ml 665 ml Exam HEENT examination; supple neck, no JVD. No lymphadenopathy. Midline trachea. No thyromegaly. Patient with left intraocular lens implant. Patient multiple carious teeth. Chest examination; diminished breath sound bilaterally. S1-S2 audible, no murmurs. Regular rhythm. Abdomen examination; soft, no organomegaly. Bowel sounds audible. Nontender. Extremity exam is; we will peripheral edema. CABIN SERVICE AGENT examination; no focal deficit. Results Result Diagram: 09/12/16 0530 09/12/16 0530 Results 24 hrs Laboratory Tests Test 09/11/16 12:40 09/12/16 05:30 Sodium Level 144 143 Potassium Level 3.4 L 2.9 *L Chloride Level 113 H 110 Carbon Dioxide Level 19 L 21 Anion Gap 15 15 Blood Urea Nitrogen 33 H 27 H Creatinine 0.76 0.74 Glucose Level 130 133 Lactic Acid Level 1.6 Calcium Level 8.8 9.0 White Blood Count 14.3 #H Red Blood Count 3.22 L Hemoglobin 9.6 L Hematocrit 30.3 L Mean Corpuscular Volume 94.1 Mean Corpuscular Hemoglobin 29.8 Mean Corpuscular Hemoglobin Concent 31.7 L Red Cell Distribution Width 15.3 H Platelet Count 252 Mean Platelet Volume 9.9 Neutrophils % 52.0 Band Neutrophils % 36.0 H Lymphocytes % 7.0 L Monocytes % 1.0 Eosinophils % 1.0 Basophils % Metamyelocytes % 2.0 H Promyelocytes % 1.0 H Nucleated Red Blood Cells % Neutrophils # 7.4 Lymphocytes # 1.0 Monocytes # 0.1 L Eosinophils # 0.1 Basophils # Metamyelocytes # 0.3 Promyelocytes # 0.1 Nucleated Red Blood Cells # Differential Comment MANUAL DIFF Prothrombin Time 15.3 H Prothrombin Time Ratio 1.2 INR International Normalized Ratio 1.20 Activated Partial Thromboplast Time 42.6 H Medications Medications Current Medications Lorazepam (Ativan) 0.5 mg Q8H PRN PO ANXIETY; Start 09/10/16 at 18:30 Ondansetron HCl (Zofran Tab) 4 mg Q6H PRN PO NAUSEA AND/OR VOMITING; Start at 18:30 Aspirin (Aspirin) 81 mg DAILY PO Last administered on 09/12/16 09:30; Admin Dose 81 MG; Start 09/11/16 at 09:00 Nitroglycerin (Nitroglycerin (Sl Tab) 0.4 Mg) 1 tab Q5M PRN SL CHEST PAIN; Start 09/10/16 at 18:30 Acetaminophen (Tylenol Tab) 650 mg Q6H PRN PO PAIN LEVEL 1-3 OR FEVER; Start at 18:30 Acetaminophen (Tylenol Supp) 650 mg Q6H PRN [place] PAIN LEVEL 1-3 OR FEVER Last administered on 09/10/16 20:05; Admin Dose 650 MG; Start 09/10/16 at 18:30 Zolpidem Tartrate (Ambien) 5 mg QHS PRN PO INSOMNIA; Start 09/10/16 at 18:30 Docusate Sodium (Colace) 100 mg Q12H PRN PO CONSTIPATION; Start 09/10/16 at 18: 30 Magnesium Hydroxide (Milk Of Mag) 30 ml DAILY PRN PO CONSTIPATION; Start at 18:30 Famotidine (Pepcid) 20 mg Q12 PO Last administered on 09/12/16 09:30; Admin Dose 20 MG; Start 09/10/16 at 21:00 Eye Lubricant (Artificial Tears Oph) 1 drop TID BOTH EYES Last administered on 09/12/16 09:33; Admin Dose 1 DROP; Start 09/10/16 at 21:00 Enoxaparin Sodium (Lovenox) 30 mg DAILY SC Last administered on 09/12/16 09:30 ; Admin Dose 30 MG; Start 09/11/16 at 09:00 Donepezil HCl (Aricept) 5 mg DAILY PO Last administered on 09/12/16 09:30; Admin Dose 5 MG; Start 09/11/16 at 09:00 Levofloxacin (Levaquin) 500 mg DAILY PO Last administered on 09/12/16 09:34; Admin Dose 500 MG; Start 09/11/16 at 09:00 Ofloxacin (Ocuflox) 1 drop QID RIGHT EYE Last administered on 09/12/16 09:33; Admin Dose 1 DROP; Start 09/10/16 at 21:00 Prednisolone Acetate 1 drop 1 drop DAILY LEFT EYE Last administered on 09:34; Admin Dose 1 DROP; Start 09/11/16 at 09:00 Vancomycin HCl 250 ml @ 125 mls/hr Q24H IVPB Last administered on 09/11/16 14 :34; Admin Dose 125 MLS/HR; Start 09/11/16 at 13:00 Potassium Chloride/Dextrose (KCl/D5W) 1,020 ml @ 125 mls/hr Q8H10M IV Last administered on 09/12/16 11:23; Admin Dose 125 MLS/HR; Start 09/12/16 at 09:00 FRAN CORTES 24, 2017 12:09
[2016-09-12] MEDS: VANCOMYCIN 1 GM in NS 250 ML IVPB SCH (12:41)
[2016-09-12 12:52] LABS: CALCIUM 8.8 mg/dl (8.4-10.2); CREATININE 0.67 mg/dl (0.44-1.00)
[2016-09-12] MEDS ORDERED: PIPER-TAZO 3.375 GM IV (PMX) 100 ML IVPB SCH ×2 (13:00→15:00)
[2016-09-12] MEDS: PIPER-TAZO 3.375 GM IV (PMX) 100 ML IVPB SCH (17:42)
[2016-09-13] VITALS (11 sets, daily range): BP systolic 117–140; BP diastolic 59–74; PULSE 74–110; RESP 17–22
[2016-09-13] MEDS: PIPER-TAZO 3.375 GM IV (PMX) 100 ML IVPB SCH ×3 (02:00→22:25)
[2016-09-13] MEDS: POTASSIUM CHLORIDE 40 MEQ in DEXTROSE 5% 1,000 ML IV SCH ×2 (03:42→15:18)
[2016-09-13 06:15] LABS: ADD SCAN DIFF NO
[2016-09-13 06:16] LABS: HEMATOCRIT 28.4 % (37.0-47.0); HEMOGLOBIN 9.1 g/dl (12.0-16.0); MEAN CORPUSCULAR HEMOGLOBIN 29.6 pg (29.0-33.0); MEAN CORPUSCULAR VOLUME 92.5 fl (82.0-101.0); MEAN PLATELET VOLUME 9.9 fl (7.4-10.4); PLATELET COUNT 234 10^3/UL (140-415); RED BLOOD COUNT 3.07 10^6/ul (4.20-5.40); RED CELL DISTRIBUTION WIDTH 15.5 % (11.5-14.5)
[2016-09-13 06:33] LABS: INR 1.23; PROTIME 15.6 Sec (12.2-14.2); PT RATIO 1.2
[2016-09-13 06:34] LABS: PARTIAL THROMBOPLASTIN TIME 37.4 Sec (25.0-35.0)
[2016-09-13 08:18] LABS: ANISOCYTOSIS 1+; EOSINOPHILS # 0.2 10^3/ul (0.0-0.5); LYMPHOCYTES # 1.2 10^3/ul (0.8-2.9); MONOCYTE # 0.2 10^3/ul (0.3-0.9); MYELOCYTES # 0.1; NEUTROPHIL # 8.5 10^3/ul (1.6-7.5); TOXIC GRANULATION 1+
[2016-09-13 08:19] LABS: BURR CELLS FEW; OVALOCYTES FEW; PLATELET ESTIMATE PLT APPEAR ADEQUATE; POIKILOCYTOSIS 2+; POLYCHROMASIA 1+
[2016-09-13] MEDS: DONEPEZIL 5 MG TAB PO SCH (09:00)
[2016-09-13] MEDS: ASPIRIN 81 MG TAB PO SCH (09:00)
[2016-09-13] MEDS: FAMOTIDINE 20 MG TAB PO SCH (09:00)
[2016-09-13] MEDS: ARTIFICIAL TEARS 15 ML OPH BOTH EYES SCH ×3 (09:18→20:16)
[2016-09-13] MEDS: PREDNISOLONE ACET 1% 5 ML OPH LEFT EYE SCH (09:25)
[2016-09-13] MEDS: OFLOXACIN 0.3% 5 ML OPH RIGHT EYE SCH ×4 (09:25→20:17)
[2016-09-13] MEDS: ENOXAPARIN 30 MG/0.3 ML SYG SC SCH (09:27)
[2016-09-13 09:29] LABS: ALBUMIN 2.1 g/dl (3.3-4.9)
[2016-09-13 09:31] LABS: BILIRUBIN,INDIRECT 0.2 mg/dl (0-1.1); BILIRUBIN,TOTAL 0.2 mg/dl (0.2-1.3); CREATININE 0.6 mg/dl (0.44-1.00)
[2016-09-13 09:32] LABS: ALBUMIN/GLOBULIN RATIO 0.67; CALCIUM 8.7 mg/dl (8.4-10.2); TOTAL PROTEIN 5.2 g/dl (6.1-8.1)
[2016-09-13 09:35] LABS: POTASSIUM 2.8 mmol/L (3.5-5.1)
[2016-09-13] MEDS ORDERED: POTASSIUM CHLORIDE 250 ML IVPB ONE (11:30)
[2016-09-13] MEDS ORDERED: LEVOFLOXACIN 500MG/D5W (PMX) 100 ML IVPB SCH (11:30)
--- NOTE | 2016-09-13 15:38 | CONS ---
Date/Time of Note Date/Time of Note DATE: 09/13/16 TIME: 15:37 Assessment/Plan Assessment/Plan Additional Assessment/Plan Assessment and recommendations; 1. Patient admitted for bilateral pneumonia with significant clinical improvement. Continue current treatment. Consultation Date/Type/Reason Admit Date/Time Sep 10, 2016 at 13:29 Type of Consultation: Pulmonary 24 HR Interval Summary Free Text/Dictation Patient condition is stable. She is off nonrebreather mask and maintaining excellent saturation on nasal cannula. Patient is aborting that her shortness of breath is improving. But does complain of chest congestion. Complains of scant cough. General exam; elderly lady, awake and alert currently in no distress. Exam/Review of Systems Vital Signs Vitals Vital Signs Date Time Temp Pulse Resp B/P Pulse Ox O2 Delivery O2 Flow Rate FiO2 09/13/16 15:11 97.9 77 20 140/74 98 09/13/16 13:50 Non Rebreather Mask 15.0 100 Intake and Output 09/12/16 09/12/16 09/13/16 15:00 23:00 07:00 Intake Total 700 ml Output Total 350 ml Balance -350 ml 700 ml Exam HEENT exam is; supple neck, no JVD. No lymphadenopathy. Midline trachea. Patient has bilateral intraocular lens implants. Dentition is fair. Chest examination; diminished breath sound bilaterally with mild scattered crackles. S1-S2 audible, no murmurs. Regular rhythm. Abdomen examination; soft, nondistended. No organomegaly. Bowel sounds audible. Extremity exam; no peripheral edema. [employer] examination; no focal deficit. Results Result Diagram: 09/13/16 0545 09/13/16 0833 Results 24 hrs Laboratory Tests Test 09/13/16 05:45 09/13/16 08:33 09/13/16 13:25 White Blood Count 12.0 H Red Blood Count 3.07 L Hemoglobin 9.1 L Hematocrit 28.4 L Mean Corpuscular Volume 92.5 Mean Corpuscular Hemoglobin 29.6 Mean Corpuscular Hemoglobin Concent 32.0 Red Cell Distribution Width 15.5 H Platelet Count 234 Mean Platelet Volume 9.9 Neutrophils % 71.0 Band Neutrophils % 14.0 H Lymphocytes % 10.0 L Monocytes % 2.0 Eosinophils % 2.0 Myelocytes % 1.0 H Neutrophils # 8.5 H Lymphocytes # 1.2 Monocytes # 0.2 L Eosinophils # 0.2 Myelocytes # 0.1 Toxic Granulation 1+ Dohle Bodies OCCASIONAL Platelet Estimate PLT APPEAR ADEQUATE Large Platelets FEW Polychromasia 1+ Poikilocytosis 2+ Anisocytosis 1+ Ovalocytes FEW Prothrombin Time 15.6 H Prothrombin Time Ratio 1.2 INR International Normalized Ratio 1.23 Activated Partial Thromboplast Time 37.4 H Sodium Level 139 Potassium Level 2.8 #*L Chloride Level 111 H Carbon Dioxide Level 21 Anion Gap 10 Blood Urea Nitrogen 18 Creatinine 0.60 Glucose Level 94 # Calcium Level 8.7 Total Bilirubin 0.2 Direct Bilirubin 0.00 Indirect Bilirubin 0.2 Aspartate Amino Transf (AST/SGOT) 39 Alanine Aminotransferase (ALT/SGPT) 33 Alkaline Phosphatase 100 Total Protein 5.2 L Albumin 2.1 L Globulin 3.10 Albumin/Globulin Ratio 0.67 Vancomycin Level Trough 6.5 L Medications Medications Current Medications Lorazepam (Ativan) 0.5 mg Q8H PRN PO ANXIETY; Start 09/10/16 at 18:30 Ondansetron HCl (Zofran Tab) 4 mg Q6H PRN PO NAUSEA AND/OR VOMITING; Start at 18:30 Aspirin (Aspirin) 81 mg DAILY PO Last administered on 09/12/16 09:30; Admin Dose 81 MG; Start 09/11/16 at 09:00 Nitroglycerin (Nitroglycerin (Sl Tab) 0.4 Mg) 1 tab Q5M PRN SL CHEST PAIN; Start 09/10/16 at 18:30 Acetaminophen (Tylenol Tab) 650 mg Q6H PRN PO PAIN LEVEL 1-3 OR FEVER; Start at 18:30 Acetaminophen (Tylenol Supp) 650 mg Q6H PRN [place] PAIN LEVEL 1-3 OR FEVER Last administered on 09/10/16 20:05; Admin Dose 650 MG; Start 09/10/16 at 18:30 Zolpidem Tartrate (Ambien) 5 mg QHS PRN PO INSOMNIA; Start 09/10/16 at 18:30 Docusate Sodium (Colace) 100 mg Q12H PRN PO CONSTIPATION; Start 09/10/16 at 18: 30 Magnesium Hydroxide (Milk Of Mag) 30 ml DAILY PRN PO CONSTIPATION; Start at 18:30 Eye Lubricant (Artificial Tears Oph) 1 drop TID BOTH EYES Last administered on 09/13/16 09:18; Admin Dose 1 DROP; Start 09/10/16 at 21:00 Enoxaparin Sodium (Lovenox) 30 mg DAILY SC Last administered on 09/13/16 09:27 ; Admin Dose 30 MG; Start 09/11/16 at 09:00 Donepezil HCl (Aricept) 5 mg DAILY PO Last administered on 09/12/16 09:30; Admin Dose 5 MG; Start 09/11/16 at 09:00 Ofloxacin (Ocuflox) 1 drop QID RIGHT EYE Last administered on 09/13/16 09:25; Admin Dose 1 DROP; Start 09/10/16 at 21:00 Prednisolone Acetate 1 drop 1 drop DAILY LEFT EYE Last administered on 09:25; Admin Dose 1 DROP; Start 09/11/16 at 09:00 Potassium Chloride 40 meq/ Dextrose 1,020 ml @ 100 mls/hr [id number] IV Last administered on 09/13/16 03:42; Admin Dose 100 MLS/HR; Start 09/12/16 at 09:00 Levofloxacin/ Dextrose 100 ml @ 100 mls/hr Q24H IVPB ; Start 09/13/16 at 11:30 ; Stop 09/13/16 at 16:00 Vancomycin HCl 250 ml @ 125 mls/hr Q12H IVPB ; Start 09/13/16 at 18:00 Piperacillin Sod/ Tazobactam Sod 100 ml @ 200 mls/hr Q8 IVPB ; Start 09/13/16 at 22:00 Levofloxacin/ Dextrose (Levaquin 250 Mg/ D5W 50 ml (Pmx)) 50 ml @ 50 mls/hr Q24H IVPB ; Start 09/14/16 at 09:00 Famotidine (Pepcid) 20 mg DAILY PO ; Start 09/14/16 at 09:00 FRAN CORTES 25, 2017 15:38
--- NOTE | 2016-09-13 15:43 | PN ---
Date/Time of Note Date/Time of Note DATE: 09/13/16 TIME: 15:31 Assessment/Plan VTE Prophylaxis VTE Prophylaxis Intervention: LMWH Lines/Catheters IV Catheter Type (from [facility]): Peripheral IV Urinary Cath still in place: Yes Reason Cath still needed: urinary retention, other (indicate) Assessment/Plan Problems: (1) Shortness of breath Status: Acute Comment: Improved after suctioning. Patients O2 requirements decreased as a result. (2) Pneumonia Status: Acute Comment: On antibiotic therapy. Slowly improving. Will make sure patient receives breathing treatments and suctioning regularly. Qualifiers: Pneumonia type: due to unspecified organism Laterality: right Lung location: lower lobe of lung Qualified Code: J18.9 - Pneumonia of right lower lobe due to infectious organism (3) Severe sepsis Status: Resolved Comment: Lactic acid normal as of 09/11/2016 (4) Hypertension, essential Status: Chronic (5) Hypokalemia Status: Acute Comment: Receiving potassium in fluids. Will give an extra 40mEq as a K-rider. Can also add K-elixir. Will check magnesium levels. Subjective 24 Hr Interval Summary Free Text/Dictation Breathing a bit better. Some issues with swallowing pills Exam/Review of Systems Vital Signs Vitals Vital Signs Date Time Temp Pulse Resp B/P Pulse Ox O2 Delivery O2 Flow Rate FiO2 09/13/16 15:11 97.9 77 20 140/74 98 09/13/16 13:50 Non Rebreather Mask 15.0 100 Intake and Output 09/12/16 09/12/16 09/13/16 15:00 23:00 07:00 Intake Total 700 ml Output Total 350 ml Balance -350 ml 700 ml Exam Constitutional: alert, oriented, well developed Eyes: EOMI, PERRL, nl conjunctiva Neck: supple Respiratory: congested cough, crackles/rales (wet) Cardiovascular: nl pulses, regular rate and rhythm Gastrointestinal: soft Musculoskeletal: nl extremities to inspection Extremities: normal pulses Results Labs reviewed Result Diagram: 09/13/16 0545 09/13/16 0833 Results 24 hrs Laboratory Tests Test 09/13/16 05:45 09/13/16 08:33 09/13/16 13:25 White Blood Count 12.0 H Red Blood Count 3.07 L Hemoglobin 9.1 L Hematocrit 28.4 L Mean Corpuscular Volume 92.5 Mean Corpuscular Hemoglobin 29.6 Mean Corpuscular Hemoglobin Concent 32.0 Red Cell Distribution Width 15.5 H Platelet Count 234 Mean Platelet Volume 9.9 Neutrophils % 71.0 Band Neutrophils % 14.0 H Lymphocytes % 10.0 L Monocytes % 2.0 Eosinophils % 2.0 Myelocytes % 1.0 H Neutrophils # 8.5 H Lymphocytes # 1.2 Monocytes # 0.2 L Eosinophils # 0.2 Myelocytes # 0.1 Toxic Granulation 1+ Dohle Bodies OCCASIONAL Platelet Estimate PLT APPEAR ADEQUATE Large Platelets FEW Polychromasia 1+ Poikilocytosis 2+ Anisocytosis 1+ Ovalocytes FEW Prothrombin Time 15.6 H Prothrombin Time Ratio 1.2 INR International Normalized Ratio 1.23 Activated Partial Thromboplast Time 37.4 H Sodium Level 139 Potassium Level 2.8 #*L Chloride Level 111 H Carbon Dioxide Level 21 Anion Gap 10 Blood Urea Nitrogen 18 Creatinine 0.60 Glucose Level 94 # Calcium Level 8.7 Total Bilirubin 0.2 Direct Bilirubin 0.00 Indirect Bilirubin 0.2 Aspartate Amino Transf (AST/SGOT) 39 Alanine Aminotransferase (ALT/SGPT) 33 Alkaline Phosphatase 100 Total Protein 5.2 L Albumin 2.1 L Globulin 3.10 Albumin/Globulin Ratio 0.67 Vancomycin Level Trough 6.5 L Medications Medications Current Medications Lorazepam (Ativan) 0.5 mg Q8H PRN PO ANXIETY; Start 09/10/16 at 18:30 Ondansetron HCl (Zofran Tab) 4 mg Q6H PRN PO NAUSEA AND/OR VOMITING; Start at 18:30 Aspirin (Aspirin) 81 mg DAILY PO Last administered on 09/12/16 09:30; Admin Dose 81 MG; Start 09/11/16 at 09:00 Nitroglycerin (Nitroglycerin (Sl Tab) 0.4 Mg) 1 tab Q5M PRN SL CHEST PAIN; Start 09/10/16 at 18:30 Acetaminophen (Tylenol Tab) 650 mg Q6H PRN PO PAIN LEVEL 1-3 OR FEVER; Start at 18:30 Acetaminophen (Tylenol Supp) 650 mg Q6H PRN [place] PAIN LEVEL 1-3 OR FEVER Last administered on 09/10/16 20:05; Admin Dose 650 MG; Start 09/10/16 at 18:30 Zolpidem Tartrate (Ambien) 5 mg QHS PRN PO INSOMNIA; Start 09/10/16 at 18:30 Docusate Sodium (Colace) 100 mg Q12H PRN PO CONSTIPATION; Start 09/10/16 at 18: 30 Magnesium Hydroxide (Milk Of Mag) 30 ml DAILY PRN PO CONSTIPATION; Start at 18:30 Eye Lubricant (Artificial Tears Oph) 1 drop TID BOTH EYES Last administered on 09/13/16 09:18; Admin Dose 1 DROP; Start 09/10/16 at 21:00 Enoxaparin Sodium (Lovenox) 30 mg DAILY SC Last administered on 09/13/16 09:27 ; Admin Dose 30 MG; Start 09/11/16 at 09:00 Donepezil HCl (Aricept) 5 mg DAILY PO Last administered on 09/12/16 09:30; Admin Dose 5 MG; Start 09/11/16 at 09:00 Ofloxacin (Ocuflox) 1 drop QID RIGHT EYE Last administered on 09/13/16 09:25; Admin Dose 1 DROP; Start 09/10/16 at 21:00 Prednisolone Acetate 1 drop 1 drop DAILY LEFT EYE Last administered on 09:25; Admin Dose 1 DROP; Start 09/11/16 at 09:00 Potassium Chloride 40 meq/ Dextrose 1,020 ml @ 100 mls/hr [id number] IV Last administered on 09/13/16 03:42; Admin Dose 100 MLS/HR; Start 09/12/16 at 09:00 Levofloxacin/ Dextrose 100 ml @ 100 mls/hr Q24H IVPB ; Start 09/13/16 at 11:30 ; Stop 09/13/16 at 16:00 Vancomycin HCl 250 ml @ 125 mls/hr Q12H IVPB ; Start 09/13/16 at 18:00 Piperacillin Sod/ Tazobactam Sod 100 ml @ 200 mls/hr Q8 IVPB ; Start 09/13/16 at 22:00 Levofloxacin/ Dextrose (Levaquin 250 Mg/ D5W 50 ml (Pmx)) 50 ml @ 50 mls/hr Q24H IVPB ; Start 09/14/16 at 09:00 Famotidine (Pepcid) 20 mg DAILY PO ; Start 09/14/16 at 09:00 NEDA CARRANZA MD Sep 13, 2016 15:42
[2016-09-13] MEDS ORDERED: POTASSIUM CHLORIDE 20 MEQ POWDER FOR ORAL SOLN PO ONE (16:00)
[2016-09-13 16:53] LABS: ADD SCAN DIFF NO
[2016-09-13 16:57] LABS: HEMATOCRIT 28.4 % (37.0-47.0); HEMOGLOBIN 9.3 g/dl (12.0-16.0); MEAN CORPUSCULAR HGB CONC 32.7 g/dl (32.0-37.0); MEAN CORPUSCULAR VOLUME 91.6 fl (82.0-101.0); MEAN PLATELET VOLUME 9.5 fl (7.4-10.4); PLATELET COUNT 229 10^3/UL (140-415); RED CELL DISTRIBUTION WIDTH 15.5 % (11.5-14.5); WHITE BLOOD COUNT 9.6 10^3/ul (4.8-10.8)
[2016-09-13] MEDS ORDERED: ALBUTEROL/IPRATROPIUM (NEB) 3 ML AMP NEB SCH (17:00)
[2016-09-13] MEDS: VANCOMYCIN 1 GM in NS 250 ML IVPB SCH (18:00)
[2016-09-13 19:04] LABS: LYMPHOCYTES # 1.1 10^3/ul (0.8-2.9); MONOCYTE # 0.7 10^3/ul (0.3-0.9); NEUTROPHIL # 7.9 10^3/ul (1.6-7.5)
[2016-09-13 19:06] LABS: ANISOCYTOSIS 1+; PLATELET ESTIMATE PLT APPEAR ADEQUATE
[2016-09-13] MEDS: ALBUTEROL/IPRATROPIUM (NEB) 3 ML AMP HHN SCH (19:51)
[2016-09-13] MEDS: ACETYLCYSTEINE 20% 4 ML VIAL NEB SCH (19:51)
--- NOTE | 2016-09-13 23:11 | RADRPT ---
PROCEDURE: XR Chest. CLINICAL INDICATION: Pneumonia. TECHNIQUE: Single frontal view of the chest was obtained COMPARISON: 09/11/2016. FINDINGS: The heart and mediastinum are within normal limits. Bilateral patchy air space disease is increased bilaterally, now greater in the right lung apex kimmy on. Findings compatible with increased dense pneumonia in the right apex region. There is no pleural effusion or pneumothorax. IMPRESSION: Increased bilateral lung air space disease, now greater in the right lung apex region. RPTAT: [facility] Physician Libia Date Time Electronically viewed and signed by Juhi Baca Physician on 09/13/2016 23:10 RS/
[2016-09-14] VITALS (13 sets, daily range): BP systolic 129–197; BP diastolic 57–99; PULSE 93–110; RESP 17–89
[2016-09-14] MEDS: POTASSIUM CHLORIDE 40 MEQ in DEXTROSE 5% 1,000 ML IV SCH ×3 (00:06→20:02)
[2016-09-14] MEDS: ALBUTEROL/IPRATROPIUM (NEB) 3 ML AMP HHN SCH ×4 (01:38→19:46)
[2016-09-14] MEDS: ACETYLCYSTEINE 20% 4 ML VIAL NEB SCH ×4 (01:39→19:46)
[2016-09-14] MEDS: VANCOMYCIN 1 GM in NS 250 ML IVPB SCH ×2 (05:01→18:08)
[2016-09-14] MEDS: PIPER-TAZO 3.375 GM IV (PMX) 100 ML IVPB SCH ×3 (06:46→23:18)
[2016-09-14 06:51] LABS: ALBUMIN 2.2 g/dl (3.3-4.9)
[2016-09-14 06:54] LABS: ALBUMIN/GLOBULIN RATIO 0.73; BILIRUBIN,INDIRECT 0.3 mg/dl (0-1.1); BILIRUBIN,TOTAL 0.3 mg/dl (0.2-1.3); CREATININE 0.55 mg/dl (0.44-1.00); TOTAL PROTEIN 5.2 g/dl (6.1-8.1)
[2016-09-14 06:55] LABS: CALCIUM 8.7 mg/dl (8.4-10.2)
[2016-09-14 07:00] LABS: INR 1.26; PROTIME 15.9 Sec (12.2-14.2); PT RATIO 1.2
[2016-09-14 07:01] LABS: PARTIAL THROMBOPLASTIN TIME 38.8 Sec (25.0-35.0)
[2016-09-14] MEDS ORDERED: POTASSIUM CHLORIDE 20 MEQ POWDER FOR ORAL SOLN PO ONE (09:30)
[2016-09-14] MEDS: PREDNISOLONE ACET 1% 5 ML OPH LEFT EYE SCH (10:30)
[2016-09-14] MEDS: FAMOTIDINE 20 MG TAB PO SCH (10:30)
[2016-09-14] MEDS: OFLOXACIN 0.3% 5 ML OPH RIGHT EYE SCH ×4 (10:30→20:01)
[2016-09-14] MEDS: ASPIRIN 81 MG TAB PO SCH (10:30)
[2016-09-14] MEDS: DONEPEZIL 5 MG TAB PO SCH (10:30)
[2016-09-14] MEDS: ENOXAPARIN 30 MG/0.3 ML SYG SC SCH (10:30)
[2016-09-14] MEDS: ARTIFICIAL TEARS 15 ML OPH BOTH EYES SCH ×3 (10:30→20:01)
[2016-09-14] MEDS: LEVOFLOXACIN 250MG/D5W (PMX) 50 ML IVPB SCH (10:38)
[2016-09-14] MEDS ORDERED: POTASSIUM CHLORIDE 250 ML IVPB ONE (11:30)
--- NOTE | 2016-09-14 17:09 | PN ---
DATE: 09/14/2016 PATIENT SEEN: Approximately 2:00 p.m. on 09/14/2016 SUBJECTIVE: The patient seen, alert. Does answer questions in terms of her son and how she is feel ing, and does sound somewhat congested but is trying to clear her secretions. PHYSICAL EXAMINATION VITAL SIGNS: Revealed the following: The patient's blood pressure is 129/57, pulse is 93, respirat ions 18, temperature 98, O2 Sat on O2 is 93%. HEENT: Unremarkable. LUNGS: Scattered rhonchi and rales, no obvious wheezing. HEART: Reveals a regular rhythm. IMPRESSION: 1. Pneumonia, worsening on x-ray. Clinically stable. 2. Sepsis secondary to #1 with hypoxemia. 3. Hyperlipidemia. 4. Hypokalemia, etiology? DISCUSSION: Laboratory data this morning revealed the following: The patient's white count was nor mal. Her hemoglobin and hematocrit have stayed stable in the 9's. Her chemistries reveal persisten t hypokalemia; however, glucose and other parameters are normal including liver function tests. Alb umin is low, which is not surprising in view of the patient not eating anything at this particular p oint in time. PLAN: Obviously, we will await pulmonary in terms of pulmonary management. The patient is on 3 ant ibiotics at this particular point in time and clinically seems to be doing better in terms of her pn eumonia, albeit on x-ray does not appear to be better. When patient is alert enough, swallowing stud ies in order. There is a feeling that patient is not able to swallow foods sufficiently at this poi nt in time. CONDITION: Today, is stable. Dictated By: LISA LINTON MD SS/NTS Conf#: [id number] DID#: [id number]
[2016-09-15] VITALS (13 sets, daily range): BP systolic 125–151; BP diastolic 59–80; PULSE 82–110; RESP 18–20
[2016-09-15] MEDS: ALBUTEROL/IPRATROPIUM (NEB) 3 ML AMP HHN SCH ×4 (01:12→19:45)
[2016-09-15] MEDS: ACETYLCYSTEINE 20% 4 ML VIAL NEB SCH ×4 (01:13→19:45)
[2016-09-15] MEDS: VANCOMYCIN 1 GM in NS 250 ML IVPB SCH (06:13)
[2016-09-15] MEDS: PIPER-TAZO 3.375 GM IV (PMX) 100 ML IVPB SCH ×2 (06:13→13:32)
[2016-09-15 07:19] LABS: ADD SCAN DIFF NO
[2016-09-15 07:25] LABS: EOSINOPHILS % 0.4 % (0.0-7.0); HEMATOCRIT 24.9 % (37.0-47.0); LYMPHOCYTES % 14.5 % (15.0-51.0); MEAN CORPUSCULAR HEMOGLOBIN 29.3 pg (29.0-33.0); MEAN CORPUSCULAR HGB CONC 32.1 g/dl (32.0-37.0); MEAN CORPUSCULAR VOLUME 91.2 fl (82.0-101.0); MEAN PLATELET VOLUME 9.9 fl (7.4-10.4); MONOCYTE # 0.6 10^3/ul (0.3-0.9); MONOCYTES % 7.8 % (0.0-11.0); NEUTROPHIL # 5.3 10^3/ul (1.6-7.5); NEUTROPHILS % 73.1 % (39.0-77.0); PLATELET COUNT 206 10^3/UL (140-415); RED BLOOD COUNT 2.73 10^6/ul (4.20-5.40); RED CELL DISTRIBUTION WIDTH 15.6 % (11.5-14.5); WHITE BLOOD COUNT 7.2 10^3/ul (4.8-10.8)
[2016-09-15] MEDS: POTASSIUM CHLORIDE 40 MEQ in DEXTROSE 5% 1,000 ML IV SCH ×2 (07:25→16:54)
[2016-09-15 07:40] LABS: POTASSIUM 3.2 mmol/L (3.5-5.1)
[2016-09-15 07:41] LABS: INR 1.21; PROTIME 15.4 Sec (12.2-14.2); PT RATIO 1.2
[2016-09-15 07:42] LABS: CREATININE 0.51 mg/dl (0.44-1.00); PARTIAL THROMBOPLASTIN TIME 40.5 Sec (25.0-35.0)
[2016-09-15 07:43] LABS: CALCIUM 8.1 mg/dl (8.4-10.2)
[2016-09-15] MEDS: ENOXAPARIN 30 MG/0.3 ML SYG SC SCH (08:56)
[2016-09-15] MEDS: OFLOXACIN 0.3% 5 ML OPH RIGHT EYE SCH ×4 (08:56→20:30)
[2016-09-15] MEDS: LEVOFLOXACIN 250MG/D5W (PMX) 50 ML IVPB SCH (08:56)
[2016-09-15] MEDS: ARTIFICIAL TEARS 15 ML OPH BOTH EYES SCH ×3 (08:57→20:30)
[2016-09-15] MEDS: PREDNISOLONE ACET 1% 5 ML OPH LEFT EYE SCH (08:57)
[2016-09-15] MEDS: ASPIRIN 81 MG TAB PO SCH (08:58)
[2016-09-15] MEDS: FAMOTIDINE 20 MG TAB PO SCH (08:58)
[2016-09-15] MEDS: DONEPEZIL 5 MG TAB PO SCH (08:58)
--- NOTE | 2016-09-15 09:01 | PN ---
DATE: 09/15/2016 TIME: The patient was seen approximately at 7:50 a.m. on 09/15/2016. SUBJECTIVE: The patient is sleeping, arousable, recognized me when aroused, sounds relatively conge sted and coughing, other than that, seems quite lethargic or tired. Coughing occasion is arousable but somewhat sleepy. PHYSICAL EXAMINATION VITAL SIGNS: Revealed the following, blood pressure 131/59, O2 sat 92% on nasal cannula, temperatur e 98.3, pulse 82, respiratory rate 19. HEENT: Unremarkable. LUNGS: Scattered rhonchi and rales. HEART: Reveals a regular rhythm. IMPRESSION: 1. Bilateral pneumonia, apparently not improving x-ray lamar. 2. Cognitive disorder. 3. Sepsis probably resolving hyperlipidemia and hypokalemia. LABORATORY DATA: This morning reveals the following, CBC reveals a normal white count, however, her hemoglobin is currently down to 8, hematocrit 24.9. The patient's chemistry panel reveals the pota ssium is still being low at 3.2 with normal electrolytes. Otherwise, chemistries are normal, we renee l discuss with pulmonary in terms of what could be done to either accelerate this process. Feeding is going to become an issue. Will discuss with family in terms of possibly putting in a G-tube. CONDITION: Stable albeit the patient is really not responding well to treatment. Dictated By: LISA LINTON MD SS/DEON Conf#: [id number] DID#: [id number]
--- NOTE | 2016-09-15 16:19 | CONS ---
Date/Time of Note Date/Time of Note DATE: 09/15/16 TIME: 16:16 Consult Date/Type/Reason Admit Date/Time Sep 10, 2016 at 13:29 Initial Consult Date Type of Consultation: Pulmonary Subjective Patient slowly improving according to his son at bedside Still has significant cough generalized weakness Still significant supplemental oxygen Objective Vital Signs Date Time Temp Pulse Resp B/P Pulse Ox O2 Delivery O2 Flow Rate FiO2 09/15/16 15:58 98.0 90 18 146/64 93 09/15/16 15:46 4.0 09/15/16 14:23 Nasal Cannula 09/14/16 13:54 50 Intake and Output 09/14/16 09/14/16 09/15/16 15:00 23:00 07:00 Intake Total 250 ml 905 ml Output Total 1000 ml Balance -750 ml 905 ml Exam GENERAL: Elderly lady comfortable at rest no acute distress makes eye contact but is currently nonverbal VITAL SIGNS: per chart NECK: Supple. No JVD or lymphadenopathy. CARDIAC EXAM: S1, S2. 2/6 systolic murmur CHEST: Diminished air entry bilaterally no rales or wheezes ABDOMEN: Soft, nontender. No guarding or rebound. EXTREMITIES: No cyanosis, clubbing edema +2 NEUROLOGIC: Generalized weakness. Results/Medications Result Diagram: 09/15/16 0600 09/15/16 0600 Results 24 hrs Laboratory Tests Test 09/15/16 06:00 White Blood Count 7.2 # Red Blood Count 2.73 L Hemoglobin 8.0 L Hematocrit 24.9 L Mean Corpuscular Volume 91.2 Mean Corpuscular Hemoglobin 29.3 Mean Corpuscular Hemoglobin Concent 32.1 Red Cell Distribution Width 15.6 H Platelet Count 206 Mean Platelet Volume 9.9 Neutrophils % 73.1 Lymphocytes % 14.5 L Monocytes % 7.8 Eosinophils % 0.4 Basophils % 0.0 Nucleated Red Blood Cells % 0.0 Neutrophils # 5.3 Lymphocytes # 1.0 Monocytes # 0.6 Eosinophils # 0.0 Basophils # 0.0 Nucleated Red Blood Cells # 0.0 Prothrombin Time 15.4 H Prothrombin Time Ratio 1.2 INR International Normalized Ratio 1.21 Activated Partial Thromboplast Time 40.5 H Sodium Level 138 Potassium Level 3.2 L Chloride Level 110 Carbon Dioxide Level 21 Anion Gap 10 Blood Urea Nitrogen 11 Creatinine 0.51 Glucose Level 142 Calcium Level 8.1 L Medications Current Medications Lorazepam (Ativan) 0.5 mg Q8H PRN PO ANXIETY; Start 09/10/16 at 18:30 Ondansetron HCl (Zofran Tab) 4 mg Q6H PRN PO NAUSEA AND/OR VOMITING; Start at 18:30 Aspirin (Aspirin) 81 mg DAILY PO Last administered on 09/12/16 09:30; Admin Dose 81 MG; Start 09/11/16 at 09:00 Nitroglycerin (Nitroglycerin (Sl Tab) 0.4 Mg) 1 tab Q5M PRN SL CHEST PAIN; Start 09/10/16 at 18:30 Acetaminophen (Tylenol Tab) 650 mg Q6H PRN PO PAIN LEVEL 1-3 OR FEVER; Start at 18:30 Acetaminophen (Tylenol Supp) 650 mg Q6H PRN [place] PAIN LEVEL 1-3 OR FEVER Last administered on 09/10/16 20:05; Admin Dose 650 MG; Start 09/10/16 at 18:30 Zolpidem Tartrate (Ambien) 5 mg QHS PRN PO INSOMNIA; Start 09/10/16 at 18:30 Docusate Sodium (Colace) 100 mg Q12H PRN PO CONSTIPATION; Start 09/10/16 at 18: 30 Magnesium Hydroxide (Milk Of Mag) 30 ml DAILY PRN PO CONSTIPATION; Start at 18:30 Eye Lubricant (Artificial Tears Oph) 1 drop TID BOTH EYES Last administered on 09/15/16 08:57; Admin Dose 1 DROP; Start 09/10/16 at 21:00 Enoxaparin Sodium (Lovenox) 30 mg DAILY SC Last administered on 09/15/16 08:56 ; Admin Dose 30 MG; Start 09/11/16 at 09:00 Donepezil HCl (Aricept) 5 mg DAILY PO Last administered on 09/12/16 09:30; Admin Dose 5 MG; Start 09/11/16 at 09:00 Ofloxacin (Ocuflox) 1 drop QID RIGHT EYE Last administered on 09/15/16 08:56; Admin Dose 1 DROP; Start 09/10/16 at 21:00 Prednisolone Acetate 1 drop 1 drop DAILY LEFT EYE Last administered on 08:57; Admin Dose 1 DROP; Start 09/11/16 at 09:00 Potassium Chloride 40 meq/ Dextrose 1,020 ml @ 100 mls/hr [id number] IV Last administered on 09/15/16 07:25; Admin Dose 100 MLS/HR; Start 09/12/16 at 09:00 Vancomycin HCl 250 ml @ 125 mls/hr Q12H IVPB Last administered on 09/15/16 06 :13; Admin Dose 125 MLS/HR; Start 09/13/16 at 18:00 Piperacillin Sod/ Tazobactam Sod 100 ml @ 200 mls/hr Q8 IVPB Last administered on 09/15/16 13:32; Admin Dose 200 MLS/HR; Start 09/13/16 at 22:00 Levofloxacin/ Dextrose (Levaquin 250 Mg/ D5W 50 ml (Pmx)) 50 ml @ 50 mls/hr Q24H IVPB Last administered on 09/15/16 08:56; Admin Dose 50 MLS/HR; Start at 09:00 Famotidine (Pepcid) 20 mg DAILY PO ; Start 09/14/16 at 09:00 Miscellaneous Information (*Rx Drug Level Order Reminder*) VANCOMYCIN TROUGH AT 1700 ONCE ONCE XX ; Start 09/15/16 at 17:00; Stop 09/15/16 at 17:01 Assessment/Plan Chief Complaint/Hosp Course Assessment 1. Hypoxemic respiratory failure 2. Possible aspiration pneumonia 3. Questionable mild congestive cardiac failure 4. History of dementia? 5. Anemia of chronic disease? Plan 1. Continue aspiration precautions 2. Speech therapy recommendations. I discussed with son patient may not be safe to swallowing which case nasogastric tube may be needed. 3. Continue antibiotics however consider de-escalation 4. Repeat chest x-ray in a.m. 5. Iron studies Disposition Consider transfer to [facility] floor Problems: MURIEL RODRIGUEZ MD, [facility] Sep 15, 2016 16:18
[2016-09-16] VITALS (15 sets, daily range): BP systolic 134–166; BP diastolic 65–92; PULSE 80–120; RESP 18–20
[2016-09-16] MEDS: ALBUTEROL/IPRATROPIUM (NEB) 3 ML AMP HHN SCH ×4 (01:15→19:54)
[2016-09-16] MEDS: ACETYLCYSTEINE 20% 4 ML VIAL NEB SCH ×4 (01:15→19:48)
[2016-09-16] MEDS: POTASSIUM CHLORIDE 40 MEQ in DEXTROSE 5% 1,000 ML IV SCH ×3 (03:08→18:08)
[2016-09-16 07:48] LABS: ADD SCAN DIFF NO
[2016-09-16 07:57] LABS: HEMATOCRIT 24.1 % (37.0-47.0); HEMOGLOBIN 7.9 g/dl (12.0-16.0); MEAN CORPUSCULAR HEMOGLOBIN 29.4 pg (29.0-33.0); MEAN CORPUSCULAR HGB CONC 32.8 g/dl (32.0-37.0); MEAN CORPUSCULAR VOLUME 89.6 fl (82.0-101.0); MEAN PLATELET VOLUME 9.9 fl (7.4-10.4); PLATELET COUNT 212 10^3/UL (140-415); RED BLOOD COUNT 2.69 10^6/ul (4.20-5.40); RED CELL DISTRIBUTION WIDTH 15.7 % (11.5-14.5); WHITE BLOOD COUNT 8.8 10^3/ul (4.8-10.8)
[2016-09-16 08:35] LABS: POTASSIUM 3.6 mmol/L (3.5-5.1)
[2016-09-16 08:37] LABS: CREATININE 0.5 mg/dl (0.44-1.00)
[2016-09-16 08:38] LABS: CALCIUM 8.2 mg/dl (8.4-10.2); MAGNESIUM 1.8 mg/dl (1.7-2.5); PHOSPHORUS 1.8 mg/dl (2.5-4.9)
[2016-09-16] MEDS: ARTIFICIAL TEARS 15 ML OPH BOTH EYES SCH ×3 (08:53→20:34)
[2016-09-16] MEDS: ASPIRIN 81 MG TAB PO SCH (08:54)
[2016-09-16] MEDS: DONEPEZIL 5 MG TAB PO SCH (08:54)
[2016-09-16] MEDS: PREDNISOLONE ACET 1% 5 ML OPH LEFT EYE SCH (08:54)
[2016-09-16] MEDS: OFLOXACIN 0.3% 5 ML OPH RIGHT EYE SCH ×4 (08:54→20:34)
[2016-09-16] MEDS: FAMOTIDINE 20 MG TAB PO SCH (08:54)
[2016-09-16] MEDS: LEVOFLOXACIN 250MG/D5W (PMX) 50 ML IVPB SCH (08:58)
--- NOTE | 2016-09-16 09:47 | RADRPT ---
PROCEDURE: XR Chest 1 View. CLINICAL INDICATION: Shortness of breath TECHNIQUE: AP view of the chest was obtained. COMPARISON: September 13, 2016 FINDINGS: The heart size is within normal limits. Calcified atherosclerosis is noted in the aorta. Rounded re trocardiac lucency may reflect a moderate-sized hiatal hernia. The lungs are hypoinflated. Patchy infiltrates throughout the right lung are stable. Patchy atelectasis versus mild infiltrates in the left lower lobe is unchanged. The osseous structures are osteopenic, but appear grossly intact. De generative changes are seen in the shoulders. IMPRESSION: Calcified atherosclerosis in the aorta. Hypoinflated lungs. Stable patchy infiltrates throughout the right lung . Stable patchy atelectasis versus mild infiltrates in the left lower lobe. Rounded retrocardiac lucency that may reflect a moderate-sized hiatal hernia. RPTAT: AA .Deepak Silva MD, Date Time Electronically viewed and signed by .Deepak Silva MD, on 09/16/2016 09:47 .P/
[2016-09-16] MEDS: ENOXAPARIN 30 MG/0.3 ML SYG SC SCH (10:01)
[2016-09-16 10:37] LABS: LYMPHOCYTES # 1.8 10^3/ul (0.8-2.9); MONOCYTE # 0.3 10^3/ul (0.3-0.9); NEUTROPHIL # 4.8 10^3/ul (1.6-7.5)
--- NOTE | 2016-09-16 10:43 | CONS ---
Date/Time of Note Date/Time of Note DATE: 09/16/16 TIME: 10:41 Assessment/Plan Assessment/Plan Additional Assessment/Plan Chest x-ray was reviewed from today which is showing extensive right-sided infiltrative changes. Assessment recommendations; 1. Patient admitted with bilateral pneumonia clinically improved however still has significant right-sided infiltrative changes. 2. Anemia. 3. Hypoxemia. Continue current treatment. Add cefepime 1 g IV every 12 hours. Continue Levaquin. Patient is off Zosyn and vancomycin. Consultation Date/Type/Reason Admit Date/Time Sep 10, 2016 at 13:29 Type of Consultation: Pulmonary 24 HR Interval Summary Free Text/Dictation Patient condition is stable. Remains awake and alert. Still requiring supplemental oxygen for O2 saturation maintenance. General exam; elderly lady, currently in no distress awake and alert. Exam/Review of Systems Vital Signs Vitals Vital Signs Date Time Temp Pulse Resp B/P Pulse Ox O2 Delivery O2 Flow Rate FiO2 09/16/16 09:03 88 22 96 Venti Mask 50 09/16/16 07:33 97.6 142/65 09/16/16 01:19 4.0 Intake and Output 09/15/16 09/15/16 09/16/16 15:00 23:00 07:00 Intake Total 950 ml 620 ml Output Total 500 ml 500 ml Balance 450 ml 120 ml Exam HEENT examination; supple neck, no JVD. No lymphadenopathy. Midline trachea. Patient has fair dentition. Pupils are small bilaterally. No neck masses. Chest examination; diminished breath sound bilaterally. No added sounds. S1- S2 audible, no murmurs. Regular rhythm. Abdomen examination; soft, no organomegaly. Bowel sounds audible. Nontender. Extremity examination; no peripheral edema. CLOTH FEEDER examination; no focal deficit. Results Result Diagram: 09/16/16 0653 09/16/16 0653 Results 24 hrs Laboratory Tests Test 09/16/16 06:53 White Blood Count 8.8 # Red Blood Count 2.69 L Hemoglobin 7.9 L Hematocrit 24.1 L Mean Corpuscular Volume 89.6 Mean Corpuscular Hemoglobin 29.4 Mean Corpuscular Hemoglobin Concent 32.8 Red Cell Distribution Width 15.7 H Platelet Count 212 Mean Platelet Volume 9.9 Neutrophils % 54.0 Band Neutrophils % 20.0 H Lymphocytes % 21.0 Reactive Lymphocytes % 2.0 Monocytes % 3.0 Eosinophils % Neutrophils # 4.8 Lymphocytes # 1.8 Monocytes # 0.3 Eosinophils # Sodium Level 136 Potassium Level 3.6 Chloride Level 108 Carbon Dioxide Level 24 Anion Gap 8 Blood Urea Nitrogen 11 Creatinine 0.50 Glucose Level 120 Calcium Level 8.2 L Phosphorus Level 1.8 L Magnesium Level 1.8 Medications Medications Current Medications Lorazepam (Ativan) 0.5 mg Q8H PRN PO ANXIETY; Start 09/10/16 at 18:30 Ondansetron HCl (Zofran Tab) 4 mg Q6H PRN PO NAUSEA AND/OR VOMITING; Start at 18:30 Aspirin (Aspirin) 81 mg DAILY PO Last administered on 09/12/16 09:30; Admin Dose 81 MG; Start 09/11/16 at 09:00 Nitroglycerin (Nitroglycerin (Sl Tab) 0.4 Mg) 1 tab Q5M PRN SL CHEST PAIN; Start 09/10/16 at 18:30 Acetaminophen (Tylenol Tab) 650 mg Q6H PRN PO PAIN LEVEL 1-3 OR FEVER; Start at 18:30 Acetaminophen (Tylenol Supp) 650 mg Q6H PRN [place] PAIN LEVEL 1-3 OR FEVER Last administered on 09/10/16 20:05; Admin Dose 650 MG; Start 09/10/16 at 18:30 Zolpidem Tartrate (Ambien) 5 mg QHS PRN PO INSOMNIA; Start 09/10/16 at 18:30 Docusate Sodium (Colace) 100 mg Q12H PRN PO CONSTIPATION; Start 09/10/16 at 18: 30 Magnesium Hydroxide (Milk Of Mag) 30 ml DAILY PRN PO CONSTIPATION; Start at 18:30 Eye Lubricant (Artificial Tears Oph) 1 drop TID BOTH EYES Last administered on 09/15/16 20:30; Admin Dose 1 DROP; Start 09/10/16 at 21:00 Enoxaparin Sodium (Lovenox) 30 mg DAILY SC Last administered on 09/16/16 10:01 ; Admin Dose 30 MG; Start 09/11/16 at 09:00 Donepezil HCl (Aricept) 5 mg DAILY PO Last administered on 09/12/16 09:30; Admin Dose 5 MG; Start 09/11/16 at 09:00 Ofloxacin (Ocuflox) 1 drop QID RIGHT EYE Last administered on 09/15/16 20:30; Admin Dose 1 DROP; Start 09/10/16 at 21:00 Prednisolone Acetate 1 drop 1 drop DAILY LEFT EYE Last administered on 08:57; Admin Dose 1 DROP; Start 09/11/16 at 09:00 Potassium Chloride 40 meq/ Dextrose 1,020 ml @ 100 mls/hr [id number] IV Last administered on 09/16/16 03:08; Admin Dose 100 MLS/HR; Start 09/12/16 at 09:00 Levofloxacin/ Dextrose (Levaquin 250 Mg/ D5W 50 ml (Pmx)) 50 ml @ 50 mls/hr Q24H IVPB Last administered on 09/16/16 08:58; Admin Dose 50 MLS/HR; Start at 09:00 Famotidine (Pepcid) 20 mg DAILY PO ; Start 09/14/16 at 09:00 FRAN CORTES 28, 2017 10:43
--- NOTE | 2016-09-16 11:49 | PN ---
DATE: 09/16/2016 TIME: Approximately 7:45 a.m. SUBJECTIVE: Patient is arousable, answers questions of how she is feeling, but now is back on a breathing mask. PHYSICAL EXAMINATION: VITAL SIGNS: Revealed the following: The patient's blood pressure was 142/65, pulse was 87, respirations 18, temperature 97.6, pulse oximetry is 97%. HEENT: Other than having the mask on her face is unremarkable. LUNGS: Reveal scattered rhonchi. HEART: Reveals regular rhythm. IMPRESSION: 1. Bilateral pneumonitis hopefully improving. 2. Cognitive disorder. 3. Sepsis secondary to number 1, resolving. 4. Hyperlipidemia. 5. Hypokalemia. LABORATORY: The patient's CBC reveals a hemoglobin of 7.9, hematocrit of 24. The patient's chemistry panel reveals a normal potassium at this particular point in time, normal BUN, creatinine and glucose. Calcium is somewhat low, probably secondary to the albumin level, and so is her magnesium. PLAN: Await swallowing study. Should she not be able to eat, we will consider G-tube placement for nutrition. The patient is becoming progressively more anemic as well as weaker. It may be worthwhile to start paring back on her antibiotics at this particular point in time. We will discuss with pulmonary. Condition this morning is stable. Dictated By: LISA MALIN/DEON Conf#: [id number] DID#: [id number] MTDD
[2016-09-16] MEDS: CEFEPIME 1GM/50 ML (PMX) 50 ML IVPB SCH ×2 (12:42→20:34)
[2016-09-17] VITALS (10 sets, daily range): BP systolic 99–138; BP diastolic 50–74; PULSE 82–107; RESP 18–20
[2016-09-17] MEDS: ALBUTEROL/IPRATROPIUM (NEB) 3 ML AMP HHN SCH ×4 (02:04→21:30)
[2016-09-17] MEDS: ACETYLCYSTEINE 20% 4 ML VIAL NEB SCH ×4 (02:11→21:18)
[2016-09-17 06:48] LABS: ADD SCAN DIFF NO
[2016-09-17 06:56] LABS: BASOPHILS % 0.1 % (0.0-2.0); EOSINOPHILS # 0.1 10^3/ul (0.0-0.5); EOSINOPHILS % 0.8 % (0.0-7.0); HEMATOCRIT 23.6 % (37.0-47.0); HEMOGLOBIN 7.6 g/dl (12.0-16.0); LYMPHOCYTES # 1.3 10^3/ul (0.8-2.9); MEAN CORPUSCULAR HEMOGLOBIN 29.1 pg (29.0-33.0); MEAN CORPUSCULAR HGB CONC 32.2 g/dl (32.0-37.0); MEAN CORPUSCULAR VOLUME 90.4 fl (82.0-101.0); MEAN PLATELET VOLUME 9.8 fl (7.4-10.4); MONOCYTE # 0.4 10^3/ul (0.3-0.9); MONOCYTES % 3.8 % (0.0-11.0); NEUTROPHIL # 8.1 10^3/ul (1.6-7.5); NEUTROPHILS % 80.3 % (39.0-77.0); PLATELET COUNT 212 10^3/UL (140-415); RED BLOOD COUNT 2.61 10^6/ul (4.20-5.40); RED CELL DISTRIBUTION WIDTH 15.6 % (11.5-14.5); WHITE BLOOD COUNT 10.1 10^3/ul (4.8-10.8)
[2016-09-17] MEDS: POTASSIUM CHLORIDE 40 MEQ in DEXTROSE 5% 1,000 ML IV SCH ×2 (06:58→10:12)
[2016-09-17 07:23] LABS: POTASSIUM 4.1 mmol/L (3.5-5.1)
[2016-09-17 07:26] LABS: CREATININE 0.46 mg/dl (0.44-1.00)
[2016-09-17 07:27] LABS: CALCIUM 8.1 mg/dl (8.4-10.2)
[2016-09-17] MEDS: OFLOXACIN 0.3% 5 ML OPH RIGHT EYE SCH ×4 (10:08→21:40)
[2016-09-17] MEDS: ARTIFICIAL TEARS 15 ML OPH BOTH EYES SCH ×3 (10:08→21:41)
[2016-09-17] MEDS: PREDNISOLONE ACET 1% 5 ML OPH LEFT EYE SCH (10:08)
[2016-09-17] MEDS: ENOXAPARIN 30 MG/0.3 ML SYG SC SCH (10:09)
[2016-09-17] MEDS: LEVOFLOXACIN 250MG/D5W (PMX) 50 ML IVPB SCH (10:12)
[2016-09-17] MEDS: CEFEPIME 1GM/50 ML (PMX) 50 ML IVPB SCH ×2 (10:12→21:51)
[2016-09-17] MEDS: DONEPEZIL 5 MG TAB PO SCH (10:17)
[2016-09-17] MEDS: ASPIRIN 81 MG TAB PO SCH (10:17)
[2016-09-17] MEDS: FAMOTIDINE 20 MG TAB PO SCH (10:17)
--- NOTE | 2016-09-17 11:29 | CONS ---
Date/Time of Note Date/Time of Note DATE: 09/17/16 TIME: 11:27 Assessment/Plan Assessment/Plan Additional Assessment/Plan Assessment recommendations; 1. Patient admitted for bilateral pneumonia clinically improved. However there has been radiological worsening involving the right lung. Patient resumed on cefepime. 2. Anemia. 3. Some element of dementia. Continue current treatment. Will obtain follow-up chest x-ray in 48 hours. Transfuse 1 unit packed RBC. I did have a detailed discussion with the patient' s son at bedside and answered all his questions. Consultation Date/Type/Reason Admit Date/Time Sep 10, 2016 at 13:29 Type of Consultation: Pulmonary 24 HR Interval Summary Free Text/Dictation Patient condition is stable. She is completely awake and alert. Off BiPAP. Maintained on nasal cannula. General exam; elderly woman, currently in no distress. Awake and alert. Exam/Review of Systems Vital Signs Vitals Vital Signs Date Time Temp Pulse Resp B/P Pulse Ox O2 Delivery O2 Flow Rate FiO2 09/17/16 08:49 81 22 99 Nasal Cannula 4.0 09/17/16 07:47 98.4 99/50 09/16/16 14:01 40 Intake and Output 09/16/16 09/16/16 09/17/16 15:00 23:00 07:00 Intake Total 50 ml 870 ml 1250 ml Output Total 700 ml 1100 ml Balance 50 ml 170 ml 150 ml Exam HEENT examination; supple neck, no JVD. No lymphadenopathy. No thyromegaly. No neck masses. Patient is a left intraocular lens implant. Has multiple carious teeth. Chest examination; diminished but clear breath sounds bilaterally. S1-S2 audible, no murmurs. Regular rhythm. Abdomen examination; soft, nontender. No organomegaly. Bowel sounds audible. Extremity examination; no peripheral edema. SCIENCE WRITER examination; no focal deficit. Results Result Diagram: 09/17/16 0605 09/17/16 0605 Results 24 hrs Laboratory Tests Test 09/17/16 06:05 White Blood Count 10.1 Red Blood Count 2.61 L Hemoglobin 7.6 L Hematocrit 23.6 L Mean Corpuscular Volume 90.4 Mean Corpuscular Hemoglobin 29.1 Mean Corpuscular Hemoglobin Concent 32.2 Red Cell Distribution Width 15.6 H Platelet Count 212 Mean Platelet Volume 9.8 Neutrophils % 80.3 H Lymphocytes % 13.0 L Monocytes % 3.8 Eosinophils % 0.8 Basophils % 0.1 Nucleated Red Blood Cells % 0.0 Neutrophils # 8.1 H Lymphocytes # 1.3 Monocytes # 0.4 Eosinophils # 0.1 Basophils # 0.0 Nucleated Red Blood Cells # 0.0 Sodium Level 136 Potassium Level 4.1 Chloride Level 107 Carbon Dioxide Level 27 Anion Gap 6 L Blood Urea Nitrogen 13 Creatinine 0.46 Glucose Level 112 Calcium Level 8.1 L Medications Medications Current Medications Lorazepam (Ativan) 0.5 mg Q8H PRN PO ANXIETY; Start 09/10/16 at 18:30 Ondansetron HCl (Zofran Tab) 4 mg Q6H PRN PO NAUSEA AND/OR VOMITING; Start at 18:30 Aspirin (Aspirin) 81 mg DAILY PO Last administered on 09/12/16 09:30; Admin Dose 81 MG; Start 09/11/16 at 09:00 Nitroglycerin (Nitroglycerin (Sl Tab) 0.4 Mg) 1 tab Q5M PRN SL CHEST PAIN; Start 09/10/16 at 18:30 Acetaminophen (Tylenol Tab) 650 mg Q6H PRN PO PAIN LEVEL 1-3 OR FEVER; Start at 18:30 Acetaminophen (Tylenol Supp) 650 mg Q6H PRN [place] PAIN LEVEL 1-3 OR FEVER Last administered on 09/10/16 20:05; Admin Dose 650 MG; Start 09/10/16 at 18:30 Zolpidem Tartrate (Ambien) 5 mg QHS PRN PO INSOMNIA; Start 09/10/16 at 18:30 Docusate Sodium (Colace) 100 mg Q12H PRN PO CONSTIPATION; Start 09/10/16 at 18: 30 Magnesium Hydroxide (Milk Of Mag) 30 ml DAILY PRN PO CONSTIPATION; Start at 18:30 Eye Lubricant (Artificial Tears Oph) 1 drop TID BOTH EYES Last administered on 09/17/16 10:08; Admin Dose 1 DROP; Start 09/10/16 at 21:00 Enoxaparin Sodium (Lovenox) 30 mg DAILY SC Last administered on 09/17/16 10:09 ; Admin Dose 30 MG; Start 09/11/16 at 09:00 Donepezil HCl (Aricept) 5 mg DAILY PO Last administered on 09/12/16 09:30; Admin Dose 5 MG; Start 09/11/16 at 09:00 Ofloxacin (Ocuflox) 1 drop QID RIGHT EYE Last administered on 09/17/16 10:08; Admin Dose 1 DROP; Start 09/10/16 at 21:00 Prednisolone Acetate 1 drop 1 drop DAILY LEFT EYE Last administered on 10:08; Admin Dose 1 DROP; Start 09/11/16 at 09:00 Potassium Chloride 40 meq/ Dextrose 1,020 ml @ 80 mls/hr [id number] IV Last administered on 09/17/16 10:12; Admin Dose 80 MLS/HR; Start 09/12/16 at 09:00 Levofloxacin/ Dextrose (Levaquin 250 Mg/ D5W 50 ml (Pmx)) 50 ml @ 50 mls/hr Q24H IVPB Last administered on 09/17/16 10:12; Admin Dose 50 MLS/HR; Start at 09:00 Famotidine 20 mg 20 mg DAILY PO ; Start 09/14/16 at 09:00 Cefepime HCl (Maxipime 1gm/50 ml (Pmx)) 50 ml @ 100 mls/hr Q12 IVPB Last administered on 09/17/16 10:12; Admin Dose 100 MLS/HR; Start 09/16/16 at 12:00 FRAN CORTES Sep 17, 2016 11:29
--- NOTE | 2016-09-17 12:07 | PN ---
DATE: 09/17/2016 TIME: Patient seen approximately 8:00 a.m. Patient was sleeping and was not disturbed, but seemed to be resting comfortably, no evidence of any labored breathing or other difficulty. PHYSICAL EXAMINATION VITAL SIGNS: Include the following: The patient is afebrile, pulse rate is in the 80s, blood press ure is 100/51, O2 sat 99% on nasal cannula. HEENT: Appears unremarkable. LUNGS: Clear. HEART: Revealed a regular rhythm. IMPRESSION: 1. Sepsis and pneumonia, improving. 2. Anemia. 3. Cognitive disorder. 4. History of hyperlipidemia. 5. Hypokalemia. DISCUSSION: Review of laboratory data reveals the following: The patient's CBC today reveals a hem oglobin of 7.6, hematocrit of 23.6 with a relatively normal white count. Chemistries revealed her p otassium to be 4.1, BUN and creatinine are normal. Following has been ordered repeat labs for tomorr ow. PLAN: Patient's diet is being gradually attempted. IV fluid rate has been lowered in view of the pa wendi's fairly severe anemia. She was being typed and crossed for 1 unit of packed cells her age an d her debilitated condition would make anemia more difficult to tolerate. Condition at this point is stable and slightly improved. Dictated By: LISA MALIN/DEON Conf#: [id number] DID#: [id number]
[2016-09-17] MEDS ORDERED: BARIUM SULFATE 135 ML (E-Z HD) PO ONE (14:00)
--- NOTE | 2016-09-17 15:02 | RADRPT ---
PROCEDURE: Video-fluoroscopy swallowing study. CLINICAL INDICATION: Dysphagia. TECHNIQUE: Fluoroscopic guided video swallowing study was done in conjunction with the speech ther apist. The study was confined to the oral, pharyngeal, and cervical phases of the swallowing mechani sm. 2.6 minutes of fluoroscopy time was used. COMPARISON: No prior study is available for comparison. FINDINGS: There is penetration during swallowing but no aspiration. IMPRESSION: 1. Penetration without aspiration. 2. Please refer to the speech therapist's recommendations for future feedings. RPTAT: QQ .Lauro Goddard MD, MD Date Time Electronically viewed and signed by .Lauro Goddard MD, MD on 09/17/2016 15:01 .R/
[2016-09-18] VITALS (12 sets, daily range): BP systolic 102–165; BP diastolic 58–108; PULSE 78–110; RESP 16–20
[2016-09-18] MEDS: ACETYLCYSTEINE 20% 4 ML VIAL NEB SCH ×4 (02:24→19:37)
[2016-09-18] MEDS: ALBUTEROL/IPRATROPIUM (NEB) 3 ML AMP HHN SCH ×4 (02:31→19:37)
[2016-09-18 07:43] LABS: ADD SCAN DIFF NO
[2016-09-18 07:48] LABS: BASOPHILS % 0.2 % (0.0-2.0); EOSINOPHILS # 0.1 10^3/ul (0.0-0.5); EOSINOPHILS % 0.4 % (0.0-7.0); HEMATOCRIT 29.3 % (37.0-47.0); HEMOGLOBIN 9.8 g/dl (12.0-16.0); LYMPHOCYTES % 9.1 % (15.0-51.0); MEAN CORPUSCULAR HEMOGLOBIN 29.5 pg (29.0-33.0); MEAN CORPUSCULAR HGB CONC 33.4 g/dl (32.0-37.0); MEAN CORPUSCULAR VOLUME 88.3 fl (82.0-101.0); MEAN PLATELET VOLUME 9.4 fl (7.4-10.4); MONOCYTE # 0.4 10^3/ul (0.3-0.9); MONOCYTES % 3.4 % (0.0-11.0); NEUTROPHIL # 9.8 10^3/ul (1.6-7.5); NEUTROPHILS % 85.7 % (39.0-77.0); PLATELET COUNT 245 10^3/UL (140-415); RED BLOOD COUNT 3.32 10^6/ul (4.20-5.40); RED CELL DISTRIBUTION WIDTH 15.3 % (11.5-14.5); WHITE BLOOD COUNT 11.4 10^3/ul (4.8-10.8)
[2016-09-18 07:58] LABS: ALBUMIN 2.1 g/dl (3.3-4.9)
[2016-09-18 07:59] LABS: POTASSIUM 4.4 mmol/L (3.5-5.1)
[2016-09-18 08:01] LABS: BILIRUBIN,INDIRECT 0.5 mg/dl (0-1.1); BILIRUBIN,TOTAL 0.5 mg/dl (0.2-1.3); CREATININE 0.48 mg/dl (0.44-1.00)
[2016-09-18 08:02] LABS: ALBUMIN/GLOBULIN RATIO 0.63; TOTAL PROTEIN 5.4 g/dl (6.1-8.1)
[2016-09-18] MEDS: DONEPEZIL 5 MG TAB PO SCH (08:41)
[2016-09-18] MEDS: ASPIRIN 81 MG TAB PO SCH (08:41)
[2016-09-18] MEDS: FAMOTIDINE 20 MG TAB PO SCH (08:41)
[2016-09-18] MEDS: CEFEPIME 1GM/50 ML (PMX) 50 ML IVPB SCH ×2 (08:42→20:59)
[2016-09-18] MEDS: LEVOFLOXACIN 250MG/D5W (PMX) 50 ML IVPB SCH (08:42)
[2016-09-18] MEDS: PREDNISOLONE ACET 1% 5 ML OPH LEFT EYE SCH (08:43)
[2016-09-18] MEDS: OFLOXACIN 0.3% 5 ML OPH RIGHT EYE SCH ×4 (08:43→21:00)
[2016-09-18] MEDS: ARTIFICIAL TEARS 15 ML OPH BOTH EYES SCH ×3 (08:43→20:59)
[2016-09-18] MEDS: ENOXAPARIN 30 MG/0.3 ML SYG SC SCH (08:48)
--- NOTE | 2016-09-18 08:55 | PN ---
DATE: 09/18/2016 TIME SEEN: Approximately 8 a.m. SUBJECTIVE: The patient is more alert than yesterday. When asked how she is feeling, she said so-s o. Other than that, no specific complaints when asked if anything hurts or anything is uncomfortabl e. OBJECTIVE: VITAL SIGNS: Reveal the following, blood pressure this morning was elevated at 165/108, pulse was 9 1, respirations 19, temperature 98, O2 saturation 91%. HEENT: Unremarkable. LUNGS: Scattered rhonchi, occasional rales. When the patient coughs thick-sounding bronchial secre tions appear to be present. HEART: Reveals a regular rhythm. The rest of the exam is unremarkable. IMPRESSION: 1. Pneumonia, improving at least clinically. 2. Anemia. 3. Cognitive disorder. 4. Hyperlipidemia. 5. Hypokalemia in the past. DISCUSSION: Review of laboratory and other data reveals the following: The patient's hemoglobin is up to 9.8, hematocrit of 29.3 secondary to her transfusion, white count is slightly elevated. The patient's chemistries revealed again minimally low sodium; however, the potassium and rest of the ch emistries appear to be normal, calcium slightly low, probably secondary to low albumin. The rest of the studies are basically unremarkable. PLAN: Will attempt to get physical therapy to work with this patient and possibly get her out of be d and in a chair. Also social service and case management which is already working with the patient . The primary problem at this point is her pulmonary status and will defer to pulmonary in terms of further management. Dictated By: LISA MALIN/DEON Conf#: [id number] DID#: [id number]
--- NOTE | 2016-09-18 10:53 | CONS ---
Date/Time of Note Date/Time of Note DATE: 09/18/16 TIME: 10:51 Consult Date/Type/Reason Admit Date/Time Sep 10, 2016 at 13:29 Type of Consultation: Pulmonary Subjective Patient is somnolent but arousable to painful stimuli Opens eyes no evidence of respiratory distress Objective Vital Signs Date Time Temp Pulse Resp B/P Pulse Ox O2 Delivery O2 Flow Rate FiO2 09/18/16 09:04 89 20 96 Nasal Cannula 4.0 09/18/16 07:13 98.0 165/108 09/16/16 14:01 40 Intake and Output 09/17/16 09/17/16 09/18/16 15:00 23:00 07:00 Intake Total 500 ml 100 ml Output Total 1200 ml Balance 500 ml -1100 ml Exam GENERAL: Elderly lady comfortable at rest no acute distress makes eye contact but is currently nonverbal VITAL SIGNS: per chart NECK: Supple. No JVD or lymphadenopathy. CARDIAC EXAM: S1, S2. 2/6 systolic murmur CHEST: Diminished air entry bilaterally no rales or wheezes ABDOMEN: Soft, nontender. No guarding or rebound. EXTREMITIES: No cyanosis, clubbing edema +2 NEUROLOGIC: Generalized weakness. Results/Medications Result Diagram: 09/18/1630 09/18/16 0730 Results 24 hrs Laboratory Tests Test 09/18/16 07:30 White Blood Count 11.4 H Red Blood Count 3.32 #L Hemoglobin 9.8 #L Hematocrit 29.3 #L Mean Corpuscular Volume 88.3 Mean Corpuscular Hemoglobin 29.5 Mean Corpuscular Hemoglobin Concent 33.4 Red Cell Distribution Width 15.3 H Platelet Count 245 Mean Platelet Volume 9.4 Neutrophils % 85.7 H Lymphocytes % 9.1 L Monocytes % 3.4 Eosinophils % 0.4 Basophils % 0.2 Nucleated Red Blood Cells % 0.0 Neutrophils # 9.8 H Lymphocytes # 1.0 Monocytes # 0.4 Eosinophils # 0.1 Basophils # 0.0 Nucleated Red Blood Cells # 0.0 Sodium Level 133 L Potassium Level 4.4 Chloride Level 103 Carbon Dioxide Level 27 Anion Gap 7 L Blood Urea Nitrogen 11 Creatinine 0.48 Glucose Level 118 Calcium Level 8.0 L Total Bilirubin 0.5 Direct Bilirubin 0.00 Indirect Bilirubin 0.5 Aspartate Amino Transf (AST/SGOT) 44 Alanine Aminotransferase (ALT/SGPT) 39 Alkaline Phosphatase 140 H Total Protein 5.4 L Albumin 2.1 L Globulin 3.30 H Albumin/Globulin Ratio 0.63 Medications Current Medications Lorazepam (Ativan) 0.5 mg Q8H PRN PO ANXIETY; Start 09/10/16 at 18:30 Ondansetron HCl (Zofran Tab) 4 mg Q6H PRN PO NAUSEA AND/OR VOMITING; Start at 18:30 Aspirin (Aspirin) 81 mg DAILY PO Last administered on 09/18/16 08:41; Admin Dose 81 MG; Start 09/11/16 at 09:00 Nitroglycerin (Nitroglycerin (Sl Tab) 0.4 Mg) 1 tab Q5M PRN SL CHEST PAIN; Start 09/10/16 at 18:30 Acetaminophen (Tylenol Tab) 650 mg Q6H PRN PO PAIN LEVEL 1-3 OR FEVER; Start at 18:30 Acetaminophen (Tylenol Supp) 650 mg Q6H PRN [place] PAIN LEVEL 1-3 OR FEVER Last administered on 09/10/16 20:05; Admin Dose 650 MG; Start 09/10/16 at 18:30 Zolpidem Tartrate (Ambien) 5 mg QHS PRN PO INSOMNIA; Start 09/10/16 at 18:30 Docusate Sodium (Colace) 100 mg Q12H PRN PO CONSTIPATION; Start 09/10/16 at 18: 30 Magnesium Hydroxide (Milk Of Mag) 30 ml DAILY PRN PO CONSTIPATION; Start at 18:30 Eye Lubricant (Artificial Tears Oph) 1 drop TID BOTH EYES Last administered on 09/18/16 08:43; Admin Dose 1 DROP; Start 09/10/16 at 21:00 Enoxaparin Sodium (Lovenox) 30 mg DAILY SC Last administered on 09/18/16 08:48 ; Admin Dose 30 MG; Start 09/11/16 at 09:00 Donepezil HCl (Aricept) 5 mg DAILY PO Last administered on 09/18/16 08:41; Admin Dose 5 MG; Start 09/11/16 at 09:00 Ofloxacin (Ocuflox) 1 drop QID RIGHT EYE Last administered on 09/18/16 08:43; Admin Dose 1 DROP; Start 09/10/16 at 21:00 Prednisolone Acetate 1 drop 1 drop DAILY LEFT EYE Last administered on 08:43; Admin Dose 1 DROP; Start 09/11/16 at 09:00 Potassium Chloride 40 meq/ Dextrose 1,020 ml @ 70 mls/hr [id number] IV Last administered on 09/17/16 10:12; Admin Dose 80 MLS/HR; Start 09/12/16 at 09:00 Levofloxacin/ Dextrose (Levaquin 250 Mg/ D5W 50 ml (Pmx)) 50 ml @ 50 mls/hr Q24H IVPB Last administered on 09/18/16 08:42; Admin Dose 50 MLS/HR; Start at 09:00 Famotidine 20 mg 20 mg DAILY PO Last administered on 09/18/16 08:41; Admin Dose 20 MG; Start 09/14/16 at 09:00 Cefepime HCl (Maxipime 1gm/50 ml (Pmx)) 50 ml @ 100 mls/hr Q12 IVPB Last administered on 09/18/16 08:42; Admin Dose 100 MLS/HR; Start 09/16/16 at 12:00 Assessment/Plan Chief Complaint/Hosp Course Assessment 1. Hypoxemic respiratory failure 2. Possible aspiration pneumonia 3. Questionable mild congestive cardiac failure 4. History of dementia? 5. Anemia of chronic disease? Plan 1. Continue aspiration precautions 2. Speech therapy recommendations. I discussed with son patient may not be safe to swallowing which case nasogastric tube may be needed. 3. Continue antibiotics however consider de-escalation 4. DVT and GI prophylaxis 5. Burns evaluation Disposition Consider downgraded to [facility] Problems: MURIEL RODRIGUEZ MD, [facility] Sep 18, 2016 10:53
[2016-09-18] MEDS: POTASSIUM CHLORIDE 40 MEQ in DEXTROSE 5% 1,000 ML IV SCH (10:57)
[2016-09-19] VITALS (11 sets, daily range): BP systolic 98–130; BP diastolic 52–86; PULSE 81–96; RESP 15–19
[2016-09-19] MEDS: ALBUTEROL/IPRATROPIUM (NEB) 3 ML AMP HHN SCH ×3 (01:56→13:48)
[2016-09-19] MEDS: ACETYLCYSTEINE 20% 4 ML VIAL NEB SCH ×2 (01:57→09:29)
[2016-09-19] MEDS: POTASSIUM CHLORIDE 40 MEQ in DEXTROSE 5% 1,000 ML IV SCH ×2 (03:23→16:45)
[2016-09-19 08:06] LABS: ADD SCAN DIFF NO
[2016-09-19 08:13] LABS: EOSINOPHILS # 0.1 10^3/ul (0.0-0.5); EOSINOPHILS % 0.5 % (0.0-7.0); HEMATOCRIT 28.1 % (37.0-47.0); HEMOGLOBIN 9.2 g/dl (12.0-16.0); LYMPHOCYTES # 1.1 10^3/ul (0.8-2.9); LYMPHOCYTES % 10.3 % (15.0-51.0); MEAN CORPUSCULAR HEMOGLOBIN 29.6 pg (29.0-33.0); MEAN CORPUSCULAR HGB CONC 32.7 g/dl (32.0-37.0); MEAN CORPUSCULAR VOLUME 90.4 fl (82.0-101.0); MONOCYTE # 0.5 10^3/ul (0.3-0.9); MONOCYTES % 4.2 % (0.0-11.0); NEUTROPHIL # 8.9 10^3/ul (1.6-7.5); NEUTROPHILS % 83.9 % (39.0-77.0); PLATELET COUNT 262 10^3/UL (140-415); RED BLOOD COUNT 3.11 10^6/ul (4.20-5.40); RED CELL DISTRIBUTION WIDTH 15.4 % (11.5-14.5); WHITE BLOOD COUNT 10.6 10^3/ul (4.8-10.8)
[2016-09-19 08:35] LABS: POTASSIUM 4.5 mmol/L (3.5-5.1)
[2016-09-19 08:37] LABS: CREATININE 0.51 mg/dl (0.44-1.00)
[2016-09-19 08:38] LABS: CALCIUM 8.1 mg/dl (8.4-10.2)
[2016-09-19] MEDS: FAMOTIDINE 20 MG TAB PO SCH (09:21)
[2016-09-19] MEDS: ASPIRIN 81 MG TAB PO SCH (09:21)
[2016-09-19] MEDS: OFLOXACIN 0.3% 5 ML OPH RIGHT EYE SCH ×3 (09:22→17:46)
[2016-09-19] MEDS: DONEPEZIL 5 MG TAB PO SCH (09:22)
[2016-09-19] MEDS: PREDNISOLONE ACET 1% 5 ML OPH LEFT EYE SCH (09:22)
[2016-09-19] MEDS: ENOXAPARIN 30 MG/0.3 ML SYG SC SCH (09:23)
[2016-09-19] MEDS: ARTIFICIAL TEARS 15 ML OPH BOTH EYES SCH ×2 (09:23→13:11)
[2016-09-19] MEDS: LEVOFLOXACIN 250MG/D5W (PMX) 50 ML IVPB SCH (09:23)
[2016-09-19] MEDS: CEFEPIME 1GM/50 ML (PMX) 50 ML IVPB SCH (09:23)
--- NOTE | 2016-09-19 13:43 | CONS ---
Date/Time of Note Date/Time of Note DATE: 09/19/16 TIME: 13:40 Consult Date/Type/Reason Admit Date/Time Sep 10, 2016 at 13:29 Type of Consultation: Pulmonary Subjective Patient comfortable this morning no new events still somewhat confused Objective Vital Signs Date Time Temp Pulse Resp B/P Pulse Ox O2 Delivery O2 Flow Rate FiO2 09/19/16 12:11 96 09/19/16 11:02 98.0 113/53 99 09/19/16 08:00 Nasal Cannula 4.0 09/19/16 07:27 18 09/18/16 19:52 35 Intake and Output 09/18/16 09/18/16 09/19/16 15:00 23:00 07:00 Intake Total 380 ml 300 ml 1095 ml Output Total 1200 ml 2200 ml Balance 380 ml -900 ml -1105 ml Exam GENERAL: Elderly lady comfortable at rest no acute distress makes eye contact but is currently nonverbal VITAL SIGNS: per chart NECK: Supple. No JVD or lymphadenopathy. CARDIAC EXAM: S1, S2. 2/6 systolic murmur CHEST: Diminished air entry bilaterally no rales or wheezes ABDOMEN: Soft, nontender. No guarding or rebound. EXTREMITIES: No cyanosis, clubbing edema +2 NEUROLOGIC: Generalized weakness. Results/Medications Result Diagram: 09/19/1670409/19/16704 Results 24 hrs Laboratory Tests Test 09/19/16 07:05 White Blood Count 10.6 Red Blood Count 3.11 L Hemoglobin 9.2 L Hematocrit 28.1 L Mean Corpuscular Volume 90.4 Mean Corpuscular Hemoglobin 29.6 Mean Corpuscular Hemoglobin Concent 32.7 Red Cell Distribution Width 15.4 H Platelet Count 262 Mean Platelet Volume 10.0 Neutrophils % 83.9 H Lymphocytes % 10.3 L Monocytes % 4.2 Eosinophils % 0.5 Basophils % 0.0 Nucleated Red Blood Cells % 0.0 Neutrophils # 8.9 H Lymphocytes # 1.1 Monocytes # 0.5 Eosinophils # 0.1 Basophils # 0.0 Nucleated Red Blood Cells # 0.0 Sodium Level 135 Potassium Level 4.5 Chloride Level 103 Carbon Dioxide Level 29 Anion Gap 8 Blood Urea Nitrogen 8 Creatinine 0.51 Glucose Level 101 Calcium Level 8.1 L Medications Current Medications Lorazepam (Ativan) 0.5 mg Q8H PRN PO ANXIETY; Start 09/10/16 at 18:30 Ondansetron HCl (Zofran Tab) 4 mg Q6H PRN PO NAUSEA AND/OR VOMITING; Start at 18:30 Aspirin (Aspirin) 81 mg DAILY PO Last administered on 09/19/16 09:21; Admin Dose 81 MG; Start 09/11/16 at 09:00 Nitroglycerin (Nitroglycerin (Sl Tab) 0.4 Mg) 1 tab Q5M PRN SL CHEST PAIN; Start 09/10/16 at 18:30 Acetaminophen (Tylenol Tab) 650 mg Q6H PRN PO PAIN LEVEL 1-3 OR FEVER; Start at 18:30 Acetaminophen (Tylenol Supp) 650 mg Q6H PRN [place] PAIN LEVEL 1-3 OR FEVER Last administered on 09/10/16 20:05; Admin Dose 650 MG; Start 09/10/16 at 18:30 Zolpidem Tartrate (Ambien) 5 mg QHS PRN PO INSOMNIA; Start 09/10/16 at 18:30 Docusate Sodium (Colace) 100 mg Q12H PRN PO CONSTIPATION; Start 09/10/16 at 18: 30 Magnesium Hydroxide (Milk Of Mag) 30 ml DAILY PRN PO CONSTIPATION; Start at 18:30 Eye Lubricant (Artificial Tears Oph) 1 drop TID BOTH EYES Last administered on 09/19/16 13:11; Admin Dose 1 DROP; Start 09/10/16 at 21:00 Enoxaparin Sodium (Lovenox) 30 mg DAILY SC Last administered on 09/19/16 09:23 ; Admin Dose 30 MG; Start 09/11/16 at 09:00 Donepezil HCl (Aricept) 5 mg DAILY PO Last administered on 09/19/16 09:22; Admin Dose 5 MG; Start 09/11/16 at 09:00 Ofloxacin (Ocuflox) 1 drop QID RIGHT EYE Last administered on 09/19/16 13:11; Admin Dose 1 DROP; Start 09/10/16 at 21:00 Prednisolone Acetate 1 drop 1 drop DAILY LEFT EYE Last administered on 09:22; Admin Dose 1 DROP; Start 09/11/16 at 09:00 Potassium Chloride 40 meq/ Dextrose 1,020 ml @ 70 mls/hr [id number] IV Last administered on 09/19/16 03:23; Admin Dose 70 MLS/HR; Start 09/12/16 at 09:00 Levofloxacin/ Dextrose (Levaquin 250 Mg/ D5W 50 ml (Pmx)) 50 ml @ 50 mls/hr Q24H IVPB Last administered on 09/19/16 09:23; Admin Dose 50 MLS/HR; Start at 09:00 Famotidine 20 mg 20 mg DAILY PO Last administered on 09/19/16 09:21; Admin Dose 20 MG; Start 09/14/16 at 09:00 Cefepime HCl (Maxipime 1gm/50 ml (Pmx)) 50 ml @ 100 mls/hr Q12 IVPB Last administered on 09/19/16 09:23; Admin Dose 100 MLS/HR; Start 09/16/16 at 12:00 Assessment/Plan Chief Complaint/Hosp Course Assessment 1. Hypoxemic respiratory failure 2. Possible aspiration pneumonia 3. Questionable mild congestive cardiac failure 4. History of dementia? 5. Anemia of chronic disease? Plan 1. Continue aspiration precautions 2. Speech therapy recommendations. Aspiration precautions 3. Continue antibiotics however consider de-escalation stop cefepime and Mucomyst 4. DVT and GI prophylaxis 5. Burns evaluation Disposition Consider downgraded to [facility] Problems: MURIEL RODRIGUEZ MD, [facility] Sep 19, 2016 13:43
--- NOTE | 2016-09-19 16:05 | PN ---
DATE: 09/19/2016 TIME SEEN: Approximately 8:05 a.m. SUBJECTIVE: The patient more alert again today, comfortable in general, and seems to be getting josep k to herself slowly but surely. PHYSICAL EXAMINATION: VITAL SIGNS: This morning revealed a blood pressure of 130/86, pulse of 86, respirations 20, O2 sat uration 96% on O2, temperature 98. HEENT: Unremarkable. LUNGS: Scattered rhonchi. Possibly some rales. HEART: Reveals a regular rhythm. ABDOMEN: Unremarkable. IMPRESSION: 1. Pneumonia, possibly improved clinically. 2. Anemia, improved post transfusion. Rest of the diagnoses unchanged. PLAN: In terms of her laboratory data from this morning, hemoglobin is 9.2, still dropping after th e transfusion, but still at a reasonable level, and the patient's electrolytes at least at this poin t are completely normal. Plan is to see if there will be a bed available at [facility] for further management of her overall condition and her pulmonary status under the care of Dr. Wilson and Dr. Gonzalez. Dictated By: LISA MALIN/DEON Conf#: [id number] DID#: [id number]
--- NOTE | 2016-09-19 16:39 | DS ---
DATE OF ADMISSION: 09/10/2016 DATE OF DISCHARGE: 09/19/2016 The patient will be transferred to [facility] 09/19/2016. ADMITTING DIAGNOSES: 1. Pneumonia and respiratory failure and hypoxemia. 2. Cognitive disorder. 3. Hyperlipidemia. 4. Abdominal discomfort, nonspecific. FINAL DIAGNOSES: 1. Pneumonia, resolving hypoxemia, still present. 2. Cognitive disorder. 3. Hyperlipidemia. 4. Abdominal discomfort, nonspecific. HOSPITAL COURSE: This was one of several [facility] admissions for this 86-year-o ld woman who was admitted through the emergency room with shortness of breath and bilateral pneumoni a and also hypoxemia, moderately severe. Findings: The emergency room confirmed pneumonia and nikky ent was admitted to telemetry in view of the fact that she had some cardiac arrhythmia issues at the time. PHYSICAL EXAM: Pertinent findings at the time of admission revealed the following: VITAL SIGNS: The patient's blood pressure was 103/56, pulse was 74. The patient was afebrile. O2 sat on BiPAP was 93%. HEENT: Unremarkable. The patient was somnolent but arousable, but hard to determine because of the BiPAP machine whether or not she was coherent. CHEST: Revealed scattered rhonchi and rales. HEART: Revealed a regular rhythm. ABDOMEN: Unremarkable. IMPRESSION ON ADMISSION: As above. COURSE IN HOSPITAL: The patient was admitted to telemetry. She was started on antibiotics. She acosta d been on levofloxacin orally prior to her admission, had just started. She was continued on that a s well as vancomycin to begin with and followed by several other antibiotics as ordered by pulmonary as well as appropriate oxygen therapy. Her outpatient medications were continued, at least those t hat did not require patient to swallow since the patient had a difficult time in terms of swallowing but towards the end she did successfully pass a swallowing test. Her last x-ray shows some clearin g, but still significant infiltrate present. Her last set of blood gases revealed a decent enough p O2. His O2 sat was 93%. One of the other issues is that this patient became progressively more ane vasu during her stay and needed a transfusion of 1 unit of packed cells after her hemoglobin dropped down to 7.6. After 1 unit, her hemoglobin returned to 9.8 with hematocrit of 29.3. However, on the day of transfer, hemoglobin was 9.2 and hematocrit of 28.1 with a relatively normal white count. C hemistries: The patient had difficulty with hypokalemia. However, that eventually also resolved, re quiring several boluses KCl at 40 mEq infused over several hours, but at least the last 4 or so, hav e been within normal range. Plan is to transfer the patient to [facility] for furt her acute management of her pulmonary status and monitoring of her general medical conditions, since it was felt that it would be an appropriate move for this particular patient. CONDITION ON TRANSFER AND DISCHARGE: Improving, but still hypoxemic and still has a way to go. At the [place] unit, pulmonary will be following her as well as Dr. Fam Gonzalez, my partner. FINAL DIAGNOSIS: As above. CONDITION ON TRANSFER: Improving. Dictated By: LISA MALIN/NTS Conf#: [id number] DID#: [id number]
== END 2016-09-19 18:50 | DRG 871 ==
LOC: E/R 12:17 → TEL 13:29
PROVIDERS: ADMIT Internal Medicine; ATTEND Internal Medicine
PROC: 5A09557 Assistance with Respiratory Ventilation, Greater than 96 Consecutive Hours, Continuous Positive Airway Pressure (ICD-10-PCS; 2016-09-10)
PROC: 30233N1 Transfusion of Nonautologous Red Blood Cells into Peripheral Vein, Percutaneous Approach (ICD-10-PCS; principal; 2016-09-17)
DX: A41.9 Sepsis, unspecified organism (principal); J18.9 Pneumonia, unspecified organism; J96.01 Acute respiratory failure with hypoxia; J69.0 Pneumonitis due to inhalation of food and vomit; D64.9 Anemia, unspecified; R65.20 Severe sepsis without septic shock; J44.9 Chronic obstructive pulmonary disease, unspecified; I10 Essential (primary) hypertension; E87.6 Hypokalemia
CPT/HCPCS: 36415; 36430; 36600; 71010; 74230; 76700; 80048; 80053; 80076; 80202; 81001; 81003; 82550; 82553; 82803; 82962; 83036; 83605; 83735; 84100; 84443; 84484; 85025; 85049; 85610; 85730; 86850; 86900; 86901; 86920; 87040; 87045; 87070; 87075; 87086; 90686; 92526; 92610; 92611; 93005; 94640; 94660; 94664; 96374; 96375; J0692; J1650; J1956; J2543; J2930; J3370; J3480; J7030; J7070; P9016

== ENCOUNTER → 2016-10-17 | Day surgery (SDC) | payer OTHER ==
[~2016-10-17] VITALS: Ht 170.2 cm; Wt 65.4 kg
[~2016-10-17] MED LIST changes: +AMIN30LI PO; +ASCO500C7 PO; +BISA10SU55 RC; +CALC600T11 PO; +CRAN425C PO; +DEXT15DR9 RIGHT EYE; +DOCU-144 PO; +DONE5TAB46 PO; +ENOX30DI10 SQ; +EPHEDrine SULFATE 50 MG/5 ML SYG ONE; +FAMO20TA18 PO; +FENTAnyl 50 MCG/ML VIAL ONE; +FERR220S2 PO; +LACT1CAP4 PO; +LEVO500T72 PO; -LISI40TA9 PO; +MAGN400O4 PO; +MULTI PO; +NA P135E RC; +OFLO5DRO46 RIGHT EYE; +ONDA4TAB8 PO; +POTA20TA15 PO; +PRD1OP5 LEFT EYE; +PROPOFOL 20 ML ONE; +TRAM50TA2 PO; +ZINC220T PO
[2016-10-17 12:26] VITALS: BP 90/53; PULSE 121; RESP 21
--- NOTE | 2016-10-17 14:24 | PN ---
DATE: At this time, the patient has a history of having abdominal distention. The patient is being prepar ed for a colonoscopy. Nasogastric tube was put in. She is having some bowel movements, rectal tube is in. Abdomen is soft and mildly distended. LABORATORY WORKUP: WBC count 7600, hemoglobin 9.0. CLINICAL IMPRESSION: The patient has been having colonic distention due to probably anal stenosis, rule out anal neoplasm. PLAN: Recommend proceeding with colonoscopy. Dictated By: RADHA BEE MD NC/NTS Conf#: [id number] DID#: [id number] CC: RADHA BEE MD;*EndCC*
[2016-10-18] VITALS (11 sets, daily range): BP systolic 92–121; BP diastolic 38–56; PULSE 92–98; RESP 18–20
--- NOTE | 2016-10-18 13:48 | GILP ---
DATE OF PROCEDURE: PROCEDURE: Colonoscopy. SURGEON: Brendan Napoles MD PREOPERATIVE DIAGNOSIS: The patient presenting with history of chronic colonic distention. On rect al exam, she has got anal stenosis and she has got hemorrhoids. POSTOPERATIVE DIAGNOSES: She has got anal stenosis, external hemorrhoids and diverticulosis. DESCRIPTION OF PROCEDURE: After the informed written consent was obtained, the patient was asked to lie on the left lateral side. Intravenous anesthesia was given by anesthesiologist, Dr. Aggarwal . When the patient became somnolent, the Olympus video colonoscope was introduced into the rectum. Scope was advanced towards the transverse colon. Large amount of liquid as well as solid stool was noted. A lot of stool was aspirated as much as possible. Diverticulosis was noted. On the way ou t, tight anal sphincter was appreciated. About 2 cm external hemorrhoids were noted, which appeared to be thrombosed and firm. At this time, no additional abnormalities detected and the procedure wa s terminated. The procedure could not be done up to cecum because of poor preparation. PLAN: . Also, I would recommend colorectal surgical consultation. Dictated By: BRENDAN NAPOLES MD NC/NTS Conf#: [id number] DID#: [id number] CC: BRENDAN NAPOLES MD; LUIS MCBRIDE MD;*[facility]*
== END | disposition home or self-care (01) ==
LOC: GIL 09:55
PROVIDERS: ATTEND Internal Medicine Gastroenterology
DX: K62.4 Stenosis of anus and rectum (principal); K64.4 Residual hemorrhoidal skin tags; K57.90 Diverticulosis of intestine, part unspecified, without perforation or abscess without bleeding; I10 Essential (primary) hypertension; I25.10 Atherosclerotic heart disease of native coronary artery without angina pectoris; E78.5 Hyperlipidemia, unspecified; I48.91 Unspecified atrial fibrillation
CPT/HCPCS: 84132; J3010

== ENCOUNTER 2016-12-25 11:28 | Inpatient (IN) | END 2017-01-23 09:58 | disposition EXP | DRG 871 | DX: A41.9 Sepsis, unspecified organism (principal); G92 Toxic encephalopathy; J96.91 Respiratory failure, unspecified with hypoxia; R65.21 Severe sepsis with septic shock; N17.9 Acute kidney failure, unspecified; E87.0 Hyperosmolality and hypernatremia; D69.6 Thrombocytopenia, unspecified; E44.0 Moderate protein-calorie malnutrition; L89.213 Pressure ulcer of right hip, stage 3; E86.0 Dehydration; N39.0 Urinary tract infection, site not specified; F03.90 Unspecified dementia, unspecified severity, without behavioral disturbance, psychotic disturbance, mood disturbance, and anxiety; I10 Essential (primary) hypertension; E78.5 Hyperlipidemia, unspecified; Z68.22 Body mass index [BMI] 22.0-22.9, adult; R40.1 Stupor; G20 Parkinson's disease; F02.80 Dementia in other diseases classified elsewhere, unspecified severity, without behavioral disturbance, psychotic disturbance, mood disturbance, and anxiety; R29.728 NIHSS score 28; R40.2423 Glasgow coma scale score 9-12, at hospital admission ==